=== PATIENT | female | born 1935 | race Caucasian/White ===

== ENCOUNTER → 2018-02-10 13:37 | Outpatient (CLI) | payer MEDICARE, OTHER, SELFPAY ==
--- NOTE | 2018-02-10 13:39 | CT_ITS ---
STUDY: CTA NECK WITH CONTRAST REASON FOR EXAM: Female, 83 years old. Carotid stenosis and occlusion. Brain aneurysm. History of hypertension and. RADIATION DOSAGE (If Supplied By Facility): CTDIvol = ( 28.19 ) mGy, DLP = ( 1426.75 ) mGycm TECHNIQUE: CT angiography with multi-detector data acquisition was performed from the aortic arch to the skull base following intravenous administration of 100mL ml of Isovue 370 contrast. MIP images were reconstructed from the axial data set. Post-processing of the angiographic images was performed, with multiplanar reformation and 3D reconstruction. Individualized dose optimization techniques were used for this CT. COMPARISON: None. FINDINGS: AORTIC ARCH: There is atherosclerotic calcific plaque formation of the aortic arch and great vessels arising from the aortic arch, without a hemodynamically significant stenosis. There is a normal origin of the brachiocephalic, left common carotid, and left subclavian arteries. RIGHT CAROTID ARTERIES: There is mild tortuosity of the proximal right common carotid artery. There is focal calcification in its midportion without stenosis. Marked calcifications at the carotid bifurcation extending upward into the carotid bulb. There is between 50 and 70% stenosis. There is greater than 70% stenosis of the origin of the right internal carotid artery. There is tortuosity cervical portion of the ICA without aneurysm or stricture. Normal origin of the right external carotid artery (ECA). LEFT CAROTID ARTERIES: There is tortuosity of the proximal left common carotid artery. There is scattered calcific plaque in its mid and distal portion without stenosis. There are calcifications at the carotid bifurcation extending into the carotid bulb with greater than 70% stenosis of the proximal bulb. There is approximate 50% stenosis of the distal bulb. Normal origin of the left internal carotid (ICA) artery without a hemodynamically significant stenosis. There is tortuosity of the cervical portion of the ICA without stricture or aneurysm. Normal origin of the left external carotid artery (ECA). VERTEBRAL ARTERIES: Normal bilateral vertebral arteries. CT/CTA Neck W/WO Contrast IMPRESSION: 1. Greater than 70% stenosis of the left carotid bulb. 2. 50-69% stenosis of the right carotid bulb. 3. Greater than 70% stenosis of the origin of the right ICA. 4. Normal vertebral arteries. Electronically Signed: Trey Maxwell DO at 16:44 EDT Tel [phone], Service support ,
--- NOTE | 2018-02-10 13:58 | CT_ITS ---
STUDY: CTA OF THE BRAIN REASON FOR EXAM: Female, 83 years old. Carotid stenosis and occlusion. Known brain aneurysm. History of hypertension and diabetes. RADIATION DOSAGE (If Supplied By Facility): CTDIvol = ( 28.19 ) mGy, DLP = ( 1426.75 ) mGycm TECHNIQUE: CT angiography was performed with a multi-detector CT scanner. Data acquisition was obtained from the skull base through the vertex following intravenous administration of 100 ml of Isovue-370.. MIP images were reconstructed from the axial data set. Post-processing of the angiographic images was performed, with multiplanar reformation and 3D reconstruction. Individualized dose optimization techniques were used for this CT. COMPARISON: MRA of the brain, March 12, 2012. This measures 3 x 2 x 2 mm. FINDINGS: Normal bilateral petrous carotid arteries. There is calcified plaque formation of the right cavernous carotid artery, with a mild stenosis (less than 50%). There is calcified plaque formation of the left cavernous carotid artery, with a mild stenosis (less than 50%). There is a small focal irregularity about the distal right cavernous carotid which would correlate with small aneurysm described at the origin of the right ophthalmic artery on the prior MRA. Normal right A1 segments of the anterior cerebral artery. Normal left A1 segments of the anterior cerebral artery. Normal intact anterior communicating artery (ACOM). Normal bilateral A2 segments of the anterior cerebral arteries. Normal right M1 and M2 segments of the middle cerebral arteries, with a normal M1 bifurcation. Normal left M1 and M2 segments of the middle cerebral arteries, with a normal M1 bifurcation. There is non-visualization of the right posterior communicating artery (PCOM). There is non-visualization of the left posterior communicating artery (PCOM). Normal bilateral vertebral arteries. Normal basilar artery with a normal basilar bifurcation. The visualized bilateral superior cerebellar (SCA) arteries are normal. Normal bilateral P1, P2 and visualized P3 segments of the posterior cerebral arteries. There is no demonstrated aneurysm of the [place]. There is no demonstrated abnormality of the visualized brain. CT/CTA Head W/WO Contrast IMPRESSION: 1. 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 2. Otherwise normal [place]. The posterior communicating arteries are not visualized which is not unusual in a complete [place]. Electronically Signed: Trey Maxwell DO at 16:50 EDT Tel [phone], Service support ,
== END ==
PROVIDERS: Family Provider Internal Medicine; PCP Internal Medicine; Visit Provider Internal Medicine
DX: I65.29 Occlusion and stenosis of unspecified carotid artery (principal)
CPT/HCPCS: 70496; 70498; Q9967

== ENCOUNTER 2018-04-22 14:15 | Inpatient (IN) | payer MEDICARE, OTHER, SELFPAY ==
[2018-04-22] VITALS (7 sets, daily range): BP systolic 160–176; BP diastolic 59–73; PULSE 65–81; RESP 16–26; TEMP 36.6–36.8; O2SAT 94–95; BMI 29.5; BMI 30.7; BMI 30.8
[2018-04-22 16:29] LABS: Absolute Lymphocyte Count 2.08 X10^3/ul (0.83-4.51); Absolute Neutrophil Count 7.7 X10^3/uL (2.0-7.7); Basophil# 0.03 X10^3/uL; Basophil% 0.3 % (0-1); Eosinophil# 0.48 X10^3/uL; Eosinophils% 4.2 % (0-5); Hematocrit 42.1 % (37-47); Hemoglobin 12.9 g/dl (12.0-15.0); Lymphocyte # 2.08 X10^3/ul (4.0); Lymphocyte % 18.3 % (19-41); Mean Corp Hgb Conc 30.6 g/gl (32-36); Mean Corpuscular Hgb 29.5 pg (27.0-32.0); Mean Corpuscular Volume 96.1 fL (81-99); Mean Platelet Vol. 10.5 fl (6.2-12.0); Monocyte# 1.03 X10^3/uL; Monocyte% 9.1 % (0-10); Neutrophil # 7.71 X10^3/uL (2.7-7.7); Neutrophil % 67.9 % (47-70); Platelet Count 244 K/mm3 (150-450); RBC Distribution Width CV 14.4 % (11.6-14.6); RBC Distribution Width SD 50.4 fl (35.1-43.9); Red Blood Count 4.38 M/mm3 (4.2-5.4); White Blood Count 11.4 K/mm3 (4.4-11.0)
[2018-04-22 16:35] LABS: POSITIVE COUNT NO; POSITIVE DIFFERENTIAL NO; POSITIVE MORPHOLOGY NO
--- NOTE | 2018-04-22 16:41 | EKG12_ITS ---
Test Reason : WEAKNESS Blood Pressure : / mmHG Vent. Rate : 069 BPM Atrial Rate : 069 BPM P-R Int : 154 ms QRS Dur : 074 ms QT Int : 390 ms P-R-T Axes : 041 050 043 degrees QTc Int : 417 ms Normal sinus rhythm Normal ECG Confirmed by ANTOINETTE GARCIA, SONIA ([id number]), editorial manager HORTENCIA DIOR ([id number] on 04/25/2018 8:40:00 AM Referred By: JODEE Confirmed By:SONIA CURRY MD
[2018-04-22 16:43] LABS: Anion Gap 7 (5-15); BUN 17 mg/dL (7-18); BUN/Creat Ratio 19.1 RATIO (10-20); Calcium,Total 9.7 mg/dL (8.5-10.1); Chloride 105 mmol/L (98-107); Creatinine, Serum 0.89 mg/dL (0.55-1.02); EST Glomerular Filtration Rate 64 mL/min (>60); Est Glom Filt Rate - Afr Amer 78 mL/min (>60); Glucose 105 mg/dL (74-106); Potassium 3.7 mmol/L (3.5-5.1); Sodium Level 144 mmol/L (136-145)
[2018-04-22 16:52] LABS: International Normalized Ratio 1.1; Prothrombin Time (Protime)PT. 14.5 SECONDS (11.7-14.9)
--- NOTE | 2018-04-22 17:01 | CM.ED ---
Social Work Note Referral from Dr. Fletcher as PCP sent pt for evaluation d/t weakness and had recommended SNF/TCU. In to pt's room to discuss discharge planning. Introduced self and role at [facility]. The pt is accompanied by her two brothers, Gregor and Mando. Pt is alert and oriented. Reports to live alone in a one story home with 5 steps to enter. DMe consists of a walker and cane. She is independent with ADLs such as dressing and bathing, but her brother Mando provides transportation primarily and she receives MOW 5 days/week once/day. Confirms that her PCP is Dr. Suazo and her preferred pharmacy is [email or web address] in [place]. She was recently in [facility] for a procedure from 04/17-04/18. Denies any other recent hospitalizations. Inquire what type of rehab the family is seeking at this point. The brother inquires about TCU and inform that for insurance to cover the pt would require a 3 midnight inpatient stay. Discuss that presently tests are ordered, but we do not have enough clinical information to make that determination. Brothers made aware that cost of SNF would be a private pay expense if pt does not require an inpatient stay. Also educate to [facility]. Pt and family would like to await further evaluation. Placed call to to see if pt would qualify for placement on this unit. According to Director, Sarahy, there are no qualifying diagnoses that would allow them to accept the pt on RU. Will discuss with family and staff. Plan: TBD pending clinical findings. Columba Shahid, ASSISTANCE COORDINATOR, TELEVISION OPERATOR
--- NOTE | 2018-04-22 17:15 | RAD_ITS ---
STUDY: X-RAY CHEST REASON FOR EXAM: Female, 83 years old. Cough TECHNIQUE: Frontal and lateral views of the chest COMPARISON: 11/07/2017 FINDINGS: The lungs are clear. There are no pleural effusions. There is no pneumothorax. The heart is normal in size. The visualized osseous structures are within normal limits. RAD/Chest PA and Lateral IMPRESSION: No acute thoracic pathology. Electronically Signed: Fidencio Warren, at 17:51 EDT Tel , Service support ,
--- NOTE | 2018-04-22 17:19 | CM.ED ---
Social Work Note Face to face with the pt's brothers as she is taken down to radiology for imaging. Explain to the pt's brothers that she does not qualify for RU. Discuss that there is still the TCU at [facility], but that this is $660/day for private pay and at this time we do not have clinical information to indicate that she will require inpatient admission. Provide with a list of facilities and their private expenses. Also reiterate that HHC could be an option and that this would be covered by Medicare at 100%. Brothers state that the pt would not be able to privately pay for placement and HHC may have to be the course of action if she does not require admission. Per Mando he believes that the pt make approximately $1800/month which is not a qualifying income for Medicaid. Will continue to follow and assist, and pending results to determine discharge plan. Columba Shahid, VERIFICATION MANAGER, MANAGER E LEARNING
--- NOTE | 2018-04-22 17:56 | CM.ED ---
Social Work Note Discussed case with physician. Anticipate that pt will be either admitted inpatient or observation depending on pending results. Observation for HHC setup as there is concern for pt to return home without any services being established prior to discharge and unable to setup HHC this late in the afternoon. SW to continue to follow and assist with discharge planning. Columba Shahid, ROTARY DRYER OPERATOR, WORKDAY SENIOR ASSOCIATE
[2018-04-22 18:09] LABS: Mucous, Urine 0 SEEN /hpf (<or=2+)
[2018-04-22 18:14] LABS: Color, Urine Yellow (Yellow); Glucose, Dipstick Normal (Normal); Ketone-Dipstick Negative (Negative); Leukocyte Esterase-Dipstick 500 /ul (Negative); Nitrite-Dipstick Positive (Negative); Occult Blood-Urine 250 /ul (Negative); Protein-Dipstick 30 mg/dl (Negative); Specific Gravity, Urine 1.015 (1.002-1.030); Urine Bilirubin Dipstick Negative (Negative); Urine Clarity Sl. Cloudy (Clear); Urine Urobilinogen Normal (Normal)
[2018-04-22 18:27] LABS: Red Blood Cells-Urine 10-25 SEEN /hpf (0-5); White Blood Cells 50-100 SEEN /hpf (0-5)
[2018-04-22 18:27] LABS: D-Dimer Quantitative (DVT/PE) 1.57 FEU/ug/m (0.27-0.49)
[2018-04-22 18:28] LABS: Bacteria 3+ /hpf (None Seen); Squamous Epithelial Cells - UA 5-10 SEEN /hpf (5-10)
--- NOTE | 2018-04-22 18:28 | NURSING ---
LAB CALLED WITH CRITICAL VALUE, D-DIMER 1.56, DR. ELLSWORTH INFORMED OF SAME, ROSALIA BERNARDO RN, INFORMED OF SAME.
--- NOTE | 2018-04-22 18:29 | CT_ITS ---
STUDY: CTA CHEST REASON FOR EXAM: Female, 83 years old. Weakness. Evaluate for pulmonary embolus. RADIATION DOSAGE (If Supplied By Facility): CTDIvol = ( 15.84 ) mGy, DLP = ( 653.50 ) mGycm TECHNIQUE: The examination was performed with the intravenous administration of 100 ml of Isovue 370 contrast material. Post-processing of the angiographic images was performed, with multiplanar reformation and 3D reconstruction. Individualized dose optimization techniques were used for this CT. COMPARISON: 12/30/2013 FINDINGS: There are acute segmental and subsegmental pulmonary emboli noted in all lobes of both lungs. There is no evidence of thoracic aortic aneurysm or dissection. The heart is normal in size. There is no pericardial effusion. There are coronary artery calcifications. There are cardiac valvular calcifications. There is subsegmental atelectasis noted in the lungs. There are no pulmonary infiltrate or pleural effusions. There is no pneumothorax. Images through the upper abdomen demonstrate no significant abnormality. There are no destructive osseous lesions. CT/CTA Chest W/WO Contrast IMPRESSION: Segmental and subsegmental pulmonary emboli noted in all lobes of both lungs. No evidence of thoracic aortic aneurysm or dissection. Subsegmental atelectasis. Otherwise, clear lungs. Coronary artery disease. N.B. : The above information has been verbally conveyed by Fidencio turcios , Covering Physician, on 04/22/2018 19:36:54 (ET). Electronically Signed: Fidencio Warren, at 19:27 EDT Tel , Service support , N.B. : The above information has been verbally conveyed by Fidencio turcios , Covering Physician, on 04/22/2018 19:36:54 (ET).
[2018-04-22 18:31] LABS: Lactic Acid 0.9 mmol/L (0.4-2.0)
[2018-04-22] MEDS: Ceftriaxone 1 GM/50 ML BAG IV (19:57)
--- NOTE | 2018-04-22 19:58 | ED.VISSUMM ---
- ER Visit Summary Date of Service: 04/22/18 Chief Complaint: Weakness History of Present Illness: The patient is a [address] Suazo. Patient reports that she had a right carotid endarterectomy by Dr. Russell at [facility] on April 17. She has a history of PE and is on Coumadin for this. They had her stop her Coumadin April 12 and then she began it again yesterday. She reports that she is not having any chest pain. She is very short of breath when she walks around. She has a cough productive yellow sputum mixed with blood. No fever or chills. She denies abdominal pain. She has had nausea without vomiting. Finally she complains of generalized weakness. Physical Examination: Vitals: Stable. Afebrile. General: Well-nourished and well-developed. Head: Normocephalic atraumatic. Neck: Supple, no lymphadenopathy. No JVD. Nontender. Incision for the right carotid endarterectomy is clean, dry, and intact. It is closed with Dermabond. There is no surrounding erythema. She is appropriate postop tenderness to palpation. Cardiovascular: Regular rate and rhythm. No murmurs. Respiratory: No respiratory distress. Clear to auscultation bilaterally. Abdominal: Soft, nontender, nondistended, normal bowel sounds. No guarding, rebound, or peritoneal signs. Back: Nontender. Extremities: Mild tenderness to palpation to her calves bilaterally. 1+ pitting edema that is symmetric. Skin: Normal color, no rash. Neurologic: Alert and oriented ?3. Cranial nerves II through XII are intact. Normal strength and sensation. Psych: Normal affect. Test Results: EKG is sinus at [address] changes. CBC is marked for white count 11.4 with 18 lymphocytes. Chem-7 is normal. INR is 1.1. Lactic acid is 0.9. UA has leukocytes, nitrites, blood, 50-100 white blood cells, 10-25 red blood cells, 5-10 epithelial cells, and 3+ bacteria. Troponin is negative. D-dimer is 1.57. CT of the chest shows segmental and subsegmental PE in all lobes of both lungs. Emergency Department Course and Treatment: Patient's urine was sent for culture. She was given a dose of Rocephin IV. She was given Lovenox subcu and Coumadin p.o. Treatment Plan: Patient was discussed with Dr. See. She will be admitted to the hospital for further evaluation and treatment. Disposition: Admitted in improved condition. Impression: 1. PE. 2. UTI. 3. 4 days status post right carotid endarterectomy. This note was generated with [employer] dictation software. It may contain incorrect words, spelling, and punctuation that were not noted in review of the chart prior to signing ED Disposition - Plan for ED Patient: Chief Complaint: Weakness Referrals: Clara Suazo DO [Primary Care Provider] -
[2018-04-22] MEDS: Enoxaparin 80 MG/0.8 ML Syringe 70 MG SC (20:01)
--- NOTE | 2018-04-22 21:52 | PCM.HP.STD ---
Problem List (1) Weakness Status: Acute (2) Shortness of breath Status: Acute History of Present Illness Date of Admission: 04/22/18 Chief Complaint: Generalized weakness, shortness of breath The patient is a 83 year old F was seen in the emergency room at [facility] with a chief complaint of severe weakness and dyspnea. Patient states she is actually had the dyspnea since around April 17 she underwent right carotid endarterectomy. Patient lives alone, she is accompanied by her family who are in the emergency room. Patient was taken off Coumadin which she had taken for many years due to a past history of blood clots, she resumed Coumadin yesterday but she did not take today's dosage. Patient states that she gets short of breath with minimal exertion and is overall weak. She denies any purulent sputum production, cough, or hemoptysis. Evaluation in the emergency room included a CT of the chest which showed multiple pulmonary emboli, labs were remarkable for a white blood cell count of 11.4, urinalysis was positive for nitrites, red blood cells were 10-25, bacteria were +3, and leukocytes were 50-100. Patient was admitted to PCU for bilateral pulmonary emboli, patient was placed on Lovenox and her Coumadin will be resumed. Daily INRs will be obtained, patient was given IV Rocephin in the emergency room for cystitis, this will be continued during her hospitalization. PT and OT will see the patient, the patient and the patient's family feels that she needs to go into an extended care facility for rehab services at the conclusion of her hospitalization this time. Past Medical History Past Medical History (Chronic Problems): Chronic Problems VTE (venous thromboembolism) (Chronic) Osteoarthritis (Chronic) Urinary incontinence in female (Chronic) HTN (hypertension) (Chronic) Bipolar disorder (Chronic) HLD (hyperlipidemia) (Chronic) DM II (diabetes mellitus, type II), controlled (Chronic) Allergies No Known Allergies Allergy (Verified 04/22/18 14:19) Home Medications: Ambulatory Orders Medication Instructions Recorded Albuterol Aerosols [Ventolin 2.5 mg INHALATION Q6HWA.RT PRN 12/30/13 Aerosols] Aspirin [Aspirin, Baby] 81 mg PO DAILY@0800 12/30/13 [place] Carbonate [Lithobid] 300 mg PO BID 12/30/13 Metoprolol Tartrate [Lopressor 50 mg PO BID 12/30/13 (beta carl)] Multivitamins,Ther W-Minerals 1 tablet PO DAILY 12/30/13 [Multivitamin With Minerals] Simvastatin [Zocor] 40 mg PO QHS 12/30/13 Venlafaxine XR [Effexor Xr] 75 mg PO DAILY 12/30/13 Venlafaxine XR [Effexor Xr] 150 mg PO DAILY 12/30/13 Warfarin [Coumadin] 4 mg PO DAILY 12/30/13 traZODone [Desyrel] 50 mg PO QHS 12/30/13 Cholecalciferol (Vitamin D3) 5,000 unit PO DAILY 04/22/18 [Vitamin D3] Mirtazapine [Mirtazapine] 30 mg PO QHS 04/22/18 Oxycodone HCl/Acetaminophen 1 tab PO Q6H PRN 04/22/18 [Percocet 5-325] Surgical History: hysterectomy - With bilateral oophorectomy at 38 years of age due to endometriosis, - - Right carotid endarterectomy Psychiatric History: Bipolar HEAVY EQUIPMENT OPERATOR/PAVER History: endometriosis Lives: Alone Smoking Status: Never smoker Tobacco Use: Non-smoker Alcohol: None Drugs: None - *Family History Maternal History Items: Heart Disease Paternal History Items: COPD, Heart Disease Review of Systems Constitutional: Reports: Weakness, Fatigue. Denies: Anorexia, Chills, Fever, Night Sweats Eyes: Denies: Blurred vision, Cataracts, Conjunctivae Inflammation, Double vision, Drainage HEENT: Denies: Difficulty Hearing, Difficulty Swallowing, Dysphasia, Ear Pain, Eye Pain, Head Aches, Hearing Changes, Nasal bleeding, Nasal Congestion Cardiovascular: Denies: Chest Pain, Claudication, Chest Pressure, Chest Tightness, Edema, Orthopnea, Palpitations Respiratory: Reports: Shortness of Breath, Shortness of breath at rest, Shortness of breath upon exertion. Denies: Cough, Hemoptysis, Sputum production, Wheezing Gastrointestinal: Denies: Abdominal Pain, Constipation, Diarrhea, Hematemesis, Hematochezia, Nausea Genitourinary: Denies: Dysuria, Frequency, Hematuria, Hesitancy, Incontinence, Nocturia, Retention, Urgency Gynecological: Denies: Breast symptoms Musculoskeletal: Denies: Back Pain, Foot Pain, Hand Pain, Joint stiffness, Joint swelling, Joint Tenderness, Leg Pain Skin: Denies: Dryness, Jaundice, Pruritis, Rash Neurological: Denies: Blurred vision, Double vision, Change in Speech, Focal weakness, Headaches, Incoordination, Numbness Psychiatric: Reports: Depression VTE Information - Inpt Only VTE Present on Admission: No VTE Mechan Device Prophylaxis: None VTE Pharm Prophylaxis ordered?: No Reason prophylaxis not ordered:: Medical Contraindication - Patient is undergoing full anticoagulation Patient Problems: Active and Suspected Problems Weakness (Acute) Shortness of breath (Acute) - Physical Exam General: Alert, Oriented x3, Cooperative, No apparent distress, Well developed, Well nourished HEENT: Atraumatic, PERRLA, EOMI, Normocephalic Oral: Moist Mucosa Neck: Supple, No JVD, Negative Carotid Bruits, No Nuchal Rigidity, Trachea Midline, Thyroid Normal Size and Texture, - - There is a healing surgical scar on the patient's right lateral neck area Lungs: Clear to auscultation, Normal air movement, No rhonchi, No wheeze, No rales Cardiovascular: Regular rate, Regular Rhythm, Normal S1, Normal S2, No murmurs, PMI Normal, No rub noted, No Gallop Abdomen: Bowel Sounds Present, Soft, Non Tender, Non-Distended, No hernias noted Extremities: No clubbing, No cyanosis, No edema, Capillary Refill Less than 3 Seconds Skin: Ulcer/ Wound - There is a healing surgical wound on the patient's right lateral neck area Musculoskeletal: No Tenderness to Palpation of Joints or Extremities Neurological: Cranial nerves II-XII grossly intact, Neuro grossly intact, Sensory exam intact to light touch and pain, Coordination normal Psych/Mental Status: Appropriate, Flat Affect, Alert and oriented to time, place, person, mood and affect Vital Signs Temp Pulse Resp BP Pulse Ox 98.3 F 78 20 H 160/70 H 95 04/22/18 21:30 04/22/18 21:30 04/22/18 21:30 04/22/18 21:30 04/22/18 21:30 Oxygen Flow Rate (L/min) 2 Oxygen Delivery Method Nasal Cannula Assessment/Plan All Active Problems Weakness (Acute) Shortness of breath (Acute) Acute exacerbation of chronic obstructive pulmonary disease (Acute) Pneumonia (Acute) PUD (peptic ulcer disease) (Resolved) #1 bilateral pulmonary emboli-patient will be admitted to PCU, she will be monitored on telemetry, she will continue Coumadin and she will be placed on Lovenox until her INR becomes therapeutic. #2 generalized weakness and debility-PT and OT will see patient, patient wants to go into a long-term facility if possible for inpatient rehab services. #3 acute cystitis-patient does not have any signs or symptoms of urinary tract infection but her urinalysis appears to indicate an acute cystitis, urine culture was done, patient will be maintained on Rocephin 1 g every 24 hours #4 bipolar disorder #5 hypertension #6 hyperlipidemia #7 Chronic obstructive pulmonary disease-patient uses albuterol aerosols as needed #8 status post right carotid endarterectomy Code Visit Inpatient E&M: 60053 Init Hosp L3
--- NOTE | 2018-04-22 21:56 | HP.PCM_ITS ---
Problem List (1) Weakness Status: Acute (2) Shortness of breath Status: Acute History of Present Illness Date of Admission: 04/22/18 Chief Complaint: Generalized weakness, shortness of breath The patient is a 83 year old F was seen in the emergency room at [facility] with a chief complaint of severe weakness and dyspnea. Patient states she is actually had the dyspnea since around April 17 she underwent right carotid endarterectomy. Patient lives alone, she is accompanied by her family who are in the emergency room. Patient was taken off Coumadin which she had taken for many years due to a past history of blood clots , she resumed Coumadin yesterday but she did not take today's dosage. Patient states that she gets short of breath with minimal exertion and is overall weak. She denies any purulent sputum production, cough, or hemoptysis. Evaluation in the emergency room included a CT of the chest which showed multiple pulmonary emboli, labs were remarkable for a white blood cell count of 11.4, urinalysis was positive for nitrites, red blood cells were 10-25, bacteria were +3, and leukocytes were 50-100. Patient was admitted to PCU for bilateral pulmonary emboli, patient was placed on Lovenox and her Coumadin will be resumed. Daily INRs will be obtained, patient was given IV Rocephin in the emergency room for cystitis, this will be continued during her hospitalization. PT and OT will see the patient, the patient and the patient's family feels that she needs to go into an extended care facility for rehab services at the conclusion of her hospitalization this time. Past Medical History Past Medical History (Chronic Problems): Chronic Problems VTE (venous thromboembolism) (Chronic) Osteoarthritis (Chronic) Urinary incontinence in female (Chronic) HTN (hypertension) (Chronic) Bipolar disorder (Chronic) HLD (hyperlipidemia) (Chronic) DM II (diabetes mellitus, type II), controlled (Chronic) Allergies No Known Allergies Allergy (Verified 04/22/18 14:19) Home Medications: Ambulatory Orders Medication Instructions Recorded Albuterol Aerosols [Ventolin 2.5 mg INHALATION Q6HWA.RT PRN 12/30/13 Aerosols] Aspirin [Aspirin, Baby] 81 mg PO DAILY@0800 12/30/13 [place] Carbonate [Lithobid] 300 mg PO BID 12/30/13 Metoprolol Tartrate [Lopressor 50 mg PO BID 12/30/13 (beta carl)] Multivitamins,Ther W-Minerals 1 tablet PO DAILY 12/30/13 [Multivitamin With Minerals] Simvastatin [Zocor] 40 mg PO QHS 12/30/13 Venlafaxine XR [Effexor Xr] 75 mg PO DAILY 12/30/13 Venlafaxine XR [Effexor Xr] 150 mg PO DAILY 12/30/13 Warfarin [Coumadin] 4 mg PO DAILY 12/30/13 traZODone [Desyrel] 50 mg PO QHS 12/30/13 Cholecalciferol (Vitamin D3) 5,000 unit PO DAILY 04/22/18 [Vitamin D3] Mirtazapine [Mirtazapine] 30 mg PO QHS 04/22/18 Oxycodone HCl/Acetaminophen 1 tab PO Q6H PRN 04/22/18 [Percocet 5-325] Surgical History: hysterectomy - With bilateral oophorectomy at 38 years of age due to endometriosis, - - Right carotid endarterectomy Psychiatric History: Bipolar CLIENT RESOLUTION SPECIALIST History: endometriosis Lives: Alone Smoking Status: Never smoker Tobacco Use: Non-smoker Alcohol: None Drugs: None - *Family History Maternal History Items: Heart Disease Paternal History Items: COPD, Heart Disease Review of Systems Constitutional: Reports: Weakness, Fatigue. Denies: Anorexia, Chills, Fever, Night Sweats Eyes: Denies: Blurred vision, Cataracts, Conjunctivae Inflammation, Double vision, Drainage HEENT: Denies: Difficulty Hearing, Difficulty Swallowing, Dysphasia, Ear Pain, Eye Pain, Head Aches, Hearing Changes, Nasal bleeding, Nasal Congestion Cardiovascular: Denies: Chest Pain, Claudication, Chest Pressure, Chest Tightness, Edema, Orthopnea, Palpitations Respiratory: Reports: Shortness of Breath, Shortness of breath at rest, Shortness of breath upon exertion. Denies: Cough, Hemoptysis, Sputum production , Wheezing Gastrointestinal: Denies: Abdominal Pain, Constipation, Diarrhea, Hematemesis, Hematochezia, Nausea Genitourinary: Denies: Dysuria, Frequency, Hematuria, Hesitancy, Incontinence, Nocturia, Retention, Urgency Gynecological: Denies: Breast symptoms Musculoskeletal: Denies: Back Pain, Foot Pain, Hand Pain, Joint stiffness, Joint swelling, Joint Tenderness, Leg Pain Skin: Denies: Dryness, Jaundice, Pruritis, Rash Neurological: Denies: Blurred vision, Double vision, Change in Speech, Focal weakness, Headaches, Incoordination, Numbness Psychiatric: Reports: Depression VTE Information - Inpt Only VTE Present on Admission: No VTE Mechan Device Prophylaxis: None VTE Pharm Prophylaxis ordered?: No Reason prophylaxis not ordered:: Medical Contraindication - Patient is undergoing full anticoagulation Patient Problems: Active and Suspected Problems Weakness (Acute) Shortness of breath (Acute) - Physical Exam General: Alert, Oriented x3, Cooperative, No apparent distress, Well developed, Well nourished HEENT: Atraumatic, PERRLA, EOMI, Normocephalic Oral: Moist Mucosa Neck: Supple, No JVD, Negative Carotid Bruits, No Nuchal Rigidity, Trachea Midline, Thyroid Normal Size and Texture, - - There is a healing surgical scar on the patient's right lateral neck area Lungs: Clear to auscultation, Normal air movement, No rhonchi, No wheeze, No rales Cardiovascular: Regular rate, Regular Rhythm, Normal S1, Normal S2, No murmurs, PMI Normal, No rub noted, No Gallop Abdomen: Bowel Sounds Present, Soft, Non Tender, Non-Distended, No hernias noted Extremities: No clubbing, No cyanosis, No edema, Capillary Refill Less than 3 Seconds Skin: Ulcer/ Wound - There is a healing surgical wound on the patient's right lateral neck area Musculoskeletal: No Tenderness to Palpation of Joints or Extremities Neurological: Cranial nerves II-XII grossly intact, Neuro grossly intact, Sensory exam intact to light touch and pain, Coordination normal Psych/Mental Status: Appropriate, Flat Affect, Alert and oriented to time, place , person, mood and affect Vital Signs Temp Pulse Resp BP Pulse Ox 98.3 F 78 20 H 160/70 H 95 04/22/18 21:30 04/22/18 21:30 04/22/18 21:30 04/22/18 21:30 04/22/18 21:30 Oxygen Flow Rate (L/min) 2 Oxygen Delivery Method Nasal Cannula Assessment/Plan All Active Problems Weakness (Acute) Shortness of breath (Acute) Acute exacerbation of chronic obstructive pulmonary disease (Acute) Pneumonia (Acute) PUD (peptic ulcer disease) (Resolved) #1 bilateral pulmonary emboli-patient will be admitted to PCU, she will be monitored on telemetry, she will continue Coumadin and she will be placed on Lovenox until her INR becomes therapeutic. #2 generalized weakness and debility-PT and OT will see patient, patient wants to go into a alf facility if possible for inpatient rehab services. #3 acute cystitis-patient does not have any signs or symptoms of urinary tract infection but her urinalysis appears to indicate an acute cystitis, urine culture was done, patient will be maintained on Rocephin 1 g every 24 hours #4 bipolar disorder #5 hypertension #6 hyperlipidemia #7 Chronic obstructive pulmonary disease-patient uses albuterol aerosols as needed #8 status post right carotid endarterectomy Code Visit Inpatient E&M: 68449 Init Hosp L3
[2018-04-22] MEDS: oxyCODONE 5 MG Tablet PO (22:22)
[2018-04-22] MEDS: Metoprolol Tartrate 50 MG Tablet PO (23:00)
[2018-04-22] MEDS: Lithium Carbonate 300mg Capsule 300 MG PO (23:00)
[2018-04-22] MEDS: Atorvastatin Calcium 20 MG Tablet PO (23:00)
[2018-04-22] MEDS: Mirtazapine 30 MG Tablet PO (23:00)
[2018-04-22] MEDS: traZODone 50 MG Tablet PO (23:00)
[2018-04-23] VITALS (14 sets, daily range): BP systolic 134–152; BP diastolic 57–68; PULSE 57–80; RESP 16–18; TEMP 36.7–36.8; O2SAT 85–97
[2018-04-23 05:51] LABS: International Normalized Ratio 1.3; Prothrombin Time (Protime)PT. 16.5 SECONDS (11.7-14.9)
[2018-04-23] MEDS: Enoxaparin 80 MG/0.8 ML Syringe 70 MG SC ×2 (06:18→17:03)
--- NOTE | 2018-04-23 08:08 | CPS ---
pt placed back on O2 at 2 lpm....sat to 92%
--- NOTE | 2018-04-23 08:50 | PCM.PROGNOTE ---
Subjective: Chief complaint: Follow-up after admission for acute segmental and subsegmental bilateral multilobar pulmonary emboli and acute cystitis. Patient seen and examined. No acute events overnight. She states that her breathing is getting better. She complains of right neck pain at the surgical site of the right carotid endarterectomy. Denied chest pain or palpitation. Her vital signs are stable, afebrile. - Physical Exam General: Alert, Oriented x3, Cooperative, No apparent distress HEENT: Atraumatic, PERRLA, EOMI Oral: Moist Mucosa, No Gingival or Mucosal Lesions/ Ulcerations Neck: Supple, No JVD, Negative Carotid Bruits, Trachea Midline, Thyroid Normal Size and Texture Lungs: Clear to auscultation, No rhonchi, No wheeze, No rales, Diminished Cardiovascular: Regular rate, Regular Rhythm, Normal S1, Normal S2, PMI Normal Abdomen: Bowel Sounds Present, Soft, Non Tender, Non-Distended, No Hepato-splenomegaly, Obese Extremities: No clubbing, No cyanosis, No edema Skin: No rashes, No breakdown Lymphatic: No Cervical, Supraclavicular, or Inguinal Adenopathy Neurological: Cranial nerves II-XII grossly intact, Motor Exam 5/5 strength throughout Psych/Mental Status: Normal Affect, Appropriate, Alert and oriented to time, place, person, mood and affect Vital Signs Temp Pulse Resp BP Pulse Ox 98.2 F 63 18 152/64 H 85 04/23/18 03:30 04/23/18 06:55 04/23/18 03:30 04/23/18 03:30 04/23/18 07:45 Oxygen Flow Rate (L/min) 2 Oxygen Delivery Method Nasal Cannula Weight: 157 lb 10.088 oz Body Mass Index (BMI) 30.7 Intake and Output for Last 24 Hours 04/21/18 04/22/18 04/23/18 23:59 23:59 23:59 Intake Total 60 / 60 Output Total 400 / 400 Balance -340 / -340 Laboratory Tests Past 24 Hrs 04/23/18 05:28 PT 16.5 H INR 1.3 Clinical Impression(s) from Imaging Studies Chest CTA 04/22/18 18:29 IMPRESSION: Segmental and subsegmental pulmonary emboli noted in all lobes of both lungs. No evidence of thoracic aortic aneurysm or dissection. Subsegmental atelectasis. Otherwise, clear lungs. Coronary artery disease. N.B. : The above information has been verbally conveyed by Fidencio Warren to , Covering Physician, on 04/22/2018 19:36:54 (ET). Electronically Signed: Fidencio Robertssandra, at 19:27 EDT Tel , Service support , N.B. : The above information has been verbally conveyed by Fidencio turcios , Covering Physician, on 04/22/2018 19:36:54 (ET). Medical Necessity - Tobacco Use Smoking Status: Never smoker Tobacco Use: Non-smoker Assessment/Plan All Active Problems PUD (peptic ulcer disease) (Resolved) This is an 83 years old female patient presented to the emergency room because of weakness and shortness of breath, found to have acute bilateral segmental and subsegmental PEs as well as acute cystitis. #1 acute segmental and subsegmental bilateral multilobar pulmonary emboli: In context of history of recurrent PEs, has been on Coumadin for a long time that was held for right carotid endarterectomy that was performed on April 17, 2018. Her INR is subtherapeutic. CTA chest reviewed. His EKG revealed normal sinus rhythm, no acute ischemic changes and no cardiac arrhythmias. Troponin is negative. Vertebral looks unremarkable. She is back on Coumadin and started on therapeutic Lovenox twice daily for bridging. Plan: Incentive spirometer, chest physiotherapy, continue Lovenox and Coumadin, repeat INR tomorrow morning, repeat CBC and BMP tomorrow morning. #2 acute cystitis: Started on IV Rocephin. She is afebrile. Urine culture sent. #3 status post recent right carotid endarterectomy: This was performed on April 21, 2018. Surgical scar is clean and dry. #4 hypertension: Blood pressure stable, continue metoprolol. #5 hyperlipidemia: Continue statins. #6 history of recurrent PEs: Patient has been on Coumadin for a long time. At this time, she is on Coumadin and therapeutic Lovenox for bridging. Plan as above. #7 bipolar disorder: Continue lithium and Effexor as well as trazodone. #8 DVT prophylaxis: She is on therapeutic Lovenox twice daily and Coumadin, INR subtherapeutic. This note was generated with [employer] dictation software. It may contain incorrect words, spelling, and punctuation that were not noted in checking the note before signing. Code Visit Inpatient E&M: 16001 Subs Hosp L2
[2018-04-23] MEDS: Venlafaxine XR 75 MG Capsule PO (09:33)
[2018-04-23] MEDS: Venlafaxine XR 150 MG Capsule PO (09:33)
[2018-04-23] MEDS: Metoprolol Tartrate 50 MG Tablet PO ×2 (09:33→21:08)
[2018-04-23] MEDS: Multivitamins,Ther W-Minerals Tablet 1 TABLET PO (09:34)
[2018-04-23] MEDS: Aspirin 81 MG TAB.CHEW PO (09:34)
[2018-04-23] MEDS: Lithium Carbonate 300mg Capsule 300 MG PO ×2 (09:34→21:08)
--- NOTE | 2018-04-23 10:31 | CM.ED ---
Social Work Note Pt admitted yesterday evening and family was seeking placement on TCU. Left vm with referral line ([phone]) and requesting placement on TCU. Left vm with assigned SW, Coleen Clinton, on PCU. SW to continue to follow and assist with discharge planning. Plan: TCU pending acceptance. Columba Shahid, OIL FILTERS INSPECTOR, OPTICAL MODEL MAKER AND TESTER
[2018-04-23] MEDS: Ceftriaxone 1 GM/50 ML BAG IV (10:34)
[2018-04-23] MEDS: oxyCODONE 5 MG Tablet PO ×3 (10:36→21:08)
--- NOTE | 2018-04-23 11:18 | CASEMGMT ---
TIFFANIE spoke with Sarahy this am regarding patient and she said at this time there are no beds. She said she will know more by end of the week. Patient is on the TCU list. SW will talk with patient and family about a 2nd choice. Brenda GIRALDO MSW
--- NOTE | 2018-04-23 11:28 | CASEMGMT ---
SW spoke with patient about a second choice as there may not be a bed in TCU. She was not sure and asked that SW talk with her brothers. TIFFANIE called her brother Mando and left him a voice mail requesting a return call. Brenda GIRALDO MSW
--- NOTE | 2018-04-23 13:14 | CM.ED ---
Addendum entered by Columba Shahid 04/23/18 13:33: Social Work Note In to pt's room as pt's brother, Mando, is present. Introduced self and role. Pt and Mando made aware that pt is on the list for TCU, but at this time they do not anticipate having a bed available. Inform that she will remain on the list in the event that a bed does become available, but that we will need to have a second option for placement purposes. Upon further discussion of SNFs in [place] and [facility], they would like a referral to be made to [facility] at [place]. Both state that they want to remain in the [place] area. Placed call to Evette at [facility] and unable to leave a vm. Initial referral faxed. Third choice would be [facility] if both primary choices are unable to accept. SW to continue to follow and assist with discharge planning. Columba Shahid, JAYLIN, PRODUCTION SUPPORT DEVELOPER Original Note: Social Work Note Pt requested that her brother be contacted regarding a second option for SNF placement in the event that TCU does not have a bed become available by the discharge date. Placed call to Mando and left a vm requesting a return phone call. SW to continue to follow and assist with discharge planning. Plan: SNF pending acceptance. Columba Shahid, JAYLIN, PRODUCTION SUPPORT DEVELOPER
--- NOTE | 2018-04-23 15:58 | CASEMGMT ---
TIFFANIE spoke with Evette from [facility] and they can accept patient. SW will notify patient. Plan: TCU if a bed opens up and if not [facility] Brenda MOSQUEDA
[2018-04-23] MEDS: Magnesium Hydroxide 30 ML UDC PO (17:03)
[2018-04-23] MEDS: traZODone 50 MG Tablet PO (21:08)
[2018-04-23] MEDS: Atorvastatin Calcium 20 MG Tablet PO (21:08)
[2018-04-23] MEDS: Mirtazapine 30 MG Tablet PO (21:08)
[2018-04-24] VITALS (13 sets, daily range): BP systolic 126–164; BP diastolic 61–83; PULSE 59–76; RESP 16–20; TEMP 36.3–37; O2SAT 92–96
[2018-04-24] MEDS: oxyCODONE 5 MG Tablet PO ×2 (03:30→20:42)
[2018-04-24] MEDS: Enoxaparin 80 MG/0.8 ML Syringe 70 MG SC ×2 (06:07→17:01)
[2018-04-24 06:38] LABS: Absolute Lymphocyte Count 1.41 X10^3/ul (0.83-4.51); Absolute Neutrophil Count 4.5 X10^3/uL (2.0-7.7); Basophil# 0.02 X10^3/uL; Basophil% 0.3 % (0-1); Eosinophil# 0.33 X10^3/uL; Eosinophils% 4.6 % (0-5); Hematocrit 36.5 % (37-47); Hemoglobin 11.1 g/dl (12.0-15.0); Lymphocyte # 1.41 X10^3/ul (4.0); Lymphocyte % 19.6 % (19-41); Mean Corp Hgb Conc 30.4 g/gl (32-36); Mean Corpuscular Hgb 29.8 pg (27.0-32.0); Mean Corpuscular Volume 98.1 fL (81-99); Mean Platelet Vol. 10.5 fl (6.2-12.0); Monocyte# 0.89 X10^3/uL; Monocyte% 12.4 % (0-10); Neutrophil # 4.54 X10^3/uL (2.7-7.7); Platelet Count 191 K/mm3 (150-450); RBC Distribution Width CV 14.6 % (11.6-14.6); RBC Distribution Width SD 51.7 fl (35.1-43.9); Red Blood Count 3.72 M/mm3 (4.2-5.4); White Blood Count 7.2 K/mm3 (4.4-11.0)
[2018-04-24 06:44] LABS: POSITIVE COUNT NO; POSITIVE DIFFERENTIAL NO; POSITIVE MORPHOLOGY NO
[2018-04-24 06:45] LABS: International Normalized Ratio 1.5; Prothrombin Time (Protime)PT. 17.9 SECONDS (11.7-14.9)
[2018-04-24 06:59] LABS: Anion Gap 5 (5-15); BUN 11 mg/dL (7-18); BUN/Creat Ratio 13.9 RATIO (10-20); Calcium,Total 9.2 mg/dL (8.5-10.1); Chloride 106 mmol/L (98-107); Creatinine, Serum 0.79 mg/dL (0.55-1.02); EST Glomerular Filtration Rate 73 mL/min (>60); Est Glom Filt Rate - Afr Amer 89 mL/min (>60); Estimated Creatinine Clearance 30.62 ml/min; Glucose 109 mg/dL (74-106); Potassium 4.4 mmol/L (3.5-5.1); Sodium Level 143 mmol/L (136-145)
--- NOTE | 2018-04-24 08:09 | PN_ITS ---
Subjective: Chief complaint: Follow-up after admission for acute subsegmental and segmental bilateral multilobar PEs and acute cystitis. Patient seen and examined. No acute events overnight. Again, she complains of pain at the surgical site on the right side of the neck. No other complaints. Vital signs are stable. - Physical Exam General: Alert, Oriented x3, Cooperative, No apparent distress HEENT: Atraumatic, PERRLA, EOMI Oral: Moist Mucosa, No Gingival or Mucosal Lesions/ Ulcerations Neck: Supple, No JVD, Negative Carotid Bruits, Trachea Midline, Thyroid Normal Size and Texture Lungs: Clear to auscultation, No rhonchi, No wheeze, No rales, Diminished Cardiovascular: Regular rate, Regular Rhythm, Normal S1, Normal S2, No murmurs Abdomen: Bowel Sounds Present, Soft, Non Tender, Non-Distended, No Hepato- splenomegaly Extremities: No clubbing, No cyanosis, No edema Skin: No rashes, No breakdown, Incision - Surgical incision on the right side of it is clean and dry, no erythema or drainage. Lymphatic: No Cervical, Supraclavicular, or Inguinal Adenopathy Neurological: Cranial nerves II-XII grossly intact, Neuro grossly intact Psych/Mental Status: Normal Affect, Appropriate, Alert and oriented to time, place, person, mood and affect Vital Signs Temp Pulse Resp BP Pulse Ox 97.7 F L 63 16 141/66 H 96 04/24/18 03:27 04/24/18 06:57 04/24/18 03:27 04/24/18 03:27 04/24/18 03:27 Oxygen Flow Rate (L/min) 2 Oxygen Delivery Method Nasal Cannula Weight: 157 lb 10.088 oz Body Mass Index (BMI) 30.7 Intake and Output for Last 24 Hours 04/22/18 04/23/18 04/24/18 23:59 23:59 23:59 Intake Total 843.1 / 843.1 Output Total 1000 / 1000 100 / 100 Balance -156.9 / -156.9 -100 / -100 Laboratory Tests Past 24 Hrs 04/24/18 04/24/18 04/24/18 06:05 06:05 06:05 WBC 7.2 RBC 3.72 L Hgb 11.1 L Hct 36.5 L MCV 98.1 MCH 29.8 MCHC 30.4 L RDW 14.6 RDW Differential 51.7 H Plt Count 191 MPV 10.5 Immature Gran % (Auto) 0.100 Neut % (Auto) 63.0 Lymph % (Auto) 19.6 Crowley % (Auto) 12.4 H Eos % (Auto) 4.6 Baso % (Auto) 0.3 Absolute Neuts (auto) 4.5 Absolute Lymphs (auto) 1.41 Total Counted Not Reportable PT 17.9 H INR 1.5 Sodium 143 Potassium 4.4 Chloride 106 Carbon Dioxide 32.0 Anion Gap 5 BUN 11 Creatinine 0.79 Estim Creat Clear Calc 30.62 Est GFR (MDRD) Af Amer 89 Est GFR (MDRD) Non-Af 73 BUN/Creatinine Ratio 13.9 Glucose 109 H Calcium 9.2 Medical Necessity - Tobacco Use Smoking Status: Never smoker Tobacco Use: Non-smoker Assessment/Plan All Active Problems PUD (peptic ulcer disease) (Resolved) This is an 83 years old female patient presented to the emergency room because of weakness and shortness of breath, found to have acute bilateral segmental and subsegmental PEs as well as acute cystitis. #1 acute segmental and subsegmental bilateral multilobar pulmonary emboli: She is on therapeutic Lovenox twice daily as well as Coumadin, INR is 1.5. Respiratory status is stable. She has a history of recurrent PEs, has been on Coumadin for a long time that was held for right carotid endarterectomy that was performed on April 17, 2018. Plan: Potassium treatment, repeat INR tomorrow morning, wean off oxygen, ambulate. #2 acute cystitis: She is on IV Rocephin. She is afebrile, leukocytosis resolved. Urine culture revealed gram-negative rods, final is pending #3 status post recent right carotid endarterectomy: This was performed on April 21, 2018. Surgical scar is clean and dry. #4 hypertension: Blood pressure stable, continue metoprolol. #5 hyperlipidemia: Continue statins. #6 history of recurrent PEs: Patient has been on Coumadin for a long time. At this time, she is on Coumadin and therapeutic Lovenox for bridging. Plan as above. #7 bipolar disorder: Continue lithium and Effexor as well as trazodone. #8 DVT prophylaxis: She is on therapeutic Lovenox twice daily and Coumadin, INR subtherapeutic. This note was generated with [employer] dictation software. It may contain incorrect words, spelling, and punctuation that were not noted in checking the note before signing. Code Visit Inpatient E&M: 90287 Subs Hosp L2
[2018-04-24] MEDS: Lithium Carbonate 300mg Capsule 300 MG PO ×2 (08:45→21:00)
[2018-04-24] MEDS: Metoprolol Tartrate 50 MG Tablet PO ×2 (08:45→21:00)
[2018-04-24] MEDS: Venlafaxine XR 150 MG Capsule PO (08:45)
[2018-04-24] MEDS: Venlafaxine XR 75 MG Capsule PO (08:45)
[2018-04-24] MEDS: Multivitamins,Ther W-Minerals Tablet 1 TABLET PO (08:45)
[2018-04-24] MEDS: Aspirin 81 MG TAB.CHEW PO (08:45)
[2018-04-24] MEDS: Ceftriaxone 1 GM/50 ML BAG IV (09:13)
[2018-04-24] MEDS: 0.9% NaCl Peripheral Flush Adult/Peds IV (09:13)
--- NOTE | 2018-04-24 14:51 | CASEMGMT ---
Social Work Received message from Sarahy in TCU and there is now a bed available for pt. SW met with pt and and informed that pt could go to either [facility] or TCU. Pt choosing TCU at this time. Phone call to Sarahy in [facility] and Evette at [facility] and informed of pt choice. SW will continue to follow for SNF placement. Plan: TCU, pt can be admitted tomorrow if medically ready SAMEERA Koenig
[2018-04-24] MEDS: Mirtazapine 30 MG Tablet PO (21:00)
[2018-04-24] MEDS: traZODone 50 MG Tablet PO (21:00)
[2018-04-24] MEDS: Atorvastatin Calcium 20 MG Tablet PO (21:00)
[2018-04-25] VITALS (10 sets, daily range): BP systolic 121–149; BP diastolic 63–89; PULSE 56–69; RESP 16–20; TEMP 36.8–36.9; O2SAT 90–97
[2018-04-25] MEDS: Enoxaparin 80 MG/0.8 ML Syringe 70 MG SC (06:13)
[2018-04-25 06:22] LABS: International Normalized Ratio 1.5; Prothrombin Time (Protime)PT. 18.2 SECONDS (11.7-14.9)
--- NOTE | 2018-04-25 08:15 | PCM.TXEXTCAR ---
- Diet 04/22/18 20:18 Diet: Cardiac/Low Cholesterol Food consistency:: Regular Liquid Consistency:: Regular/Thin Type of Dietary Supplement:: NONE - Routine Orders/Code Status Routine Lab Work: INR - Wound(s) R Neck Wound Type: Surgical Incision - Suggestions for Active Care Change Position every (hours): 3 Hours to sit in a chair: 2 Times a day to sit in chair: 3 - Therapies Weight Bearing: Weight bearing as tolerated Physical Therapy: Eval and Treat Occupational Therapy: Eval and Treat - Allergies/Procedures Done in Hospital Allergies/Adverse Reactions: Allergies No Known Allergies Allergy (Verified 04/22/18 14:19) - Type of Care/Length of Stay Estimated LOS: Convalescent Care Less Than 30 days Type of Care Needed: Skilled Rehab Potential: Good Prognosis: Good - Additional Orders/Day of Discharge Additional Orders: 1. do daily pro time and INR for the next 3 days. #2 continue Coumadin and Lovenox twice daily until INR above 2. #3 discontinue Lovenox injections once INR is 2 or above. Goal INR is between 2 and 3. H&P will serve as current which was dated: 04/22/18 Day of Discharge: 04/25/18 - Follow Up Care Primary Care Physician: Clara Suazo DO [Primary Care Provider] - Please follow up with your Primary Care Physician in: 1 week.
--- NOTE | 2018-04-25 09:54 | CASEMGMT ---
Patient is ready for d/c to TCU. SW let patient know and she said her brother is on his way in to the hospital. Plan: d/c to [facility] TCU under skilled level of care. Brenda MOSQUEDA
[2018-04-25] MEDS: Metoprolol Tartrate 50 MG Tablet PO (09:58)
[2018-04-25] MEDS: Lithium Carbonate 300mg Capsule 300 MG PO (09:59)
[2018-04-25] MEDS: Venlafaxine XR 75 MG Capsule PO (09:59)
[2018-04-25] MEDS: Venlafaxine XR 150 MG Capsule PO (09:59)
[2018-04-25] MEDS: Aspirin 81 MG TAB.CHEW PO (09:59)
[2018-04-25] MEDS: Multivitamins,Ther W-Minerals Tablet 1 TABLET PO (09:59)
[2018-04-25] MEDS: Ceftriaxone 1 GM/50 ML BAG IV (10:30)
[2018-04-25] MEDS: 0.9% NaCl Peripheral Flush Adult/Peds IV (10:31)
[2018-04-25] MEDS: Magnesium Hydroxide 30 ML UDC PO (10:31)
--- NOTE | 2018-04-25 12:09 | PCM.DC.SUM ---
Discharge Date and Diagnosis Date of Admission: 04/22/18 Date of Discharge: 04/25/18 - Primary Discharge Diagnosis #1 acute segmental and subsegmental bilateral multilobar pulmonary emboli. #2 E. coli acute cystitis. #3 status post recent right carotid endarterectomy. - Secondary Discharge Diagnosis Chronic Problems VTE (venous thromboembolism) (Chronic) Osteoarthritis (Chronic) Urinary incontinence in female (Chronic) HTN (hypertension) (Chronic) Bipolar disorder (Chronic) HLD (hyperlipidemia) (Chronic) DM II (diabetes mellitus, type II), controlled (Chronic) Hospital Course and Treatment Imaging Results: Clinical Impression(s) from Imaging Studies Chest X-Ray 04/22/18 17:15 IMPRESSION: No acute thoracic pathology. Electronically Signed: Fidencio Warren, at 17:51 EDT Tel , Service support , Chest CTA 04/22/18 18:29 IMPRESSION: Segmental and subsegmental pulmonary emboli noted in all lobes of both lungs. No evidence of thoracic aortic aneurysm or dissection. Subsegmental atelectasis. Otherwise, clear lungs. Coronary artery disease. N.B. : The above information has been verbally conveyed by Fidencio turcios , Covering Physician, on 04/22/2018 19:36:54 (ET). Electronically Signed: Fidencio Warren, at 19:27 EDT Tel , Service support , N.B. : The above information has been verbally conveyed by Fidencio turcios , Covering Physician, on 04/22/2018 19:36:54 (ET). Operations: None Procedures: EKG Summary of Care Provided: Patient seen and examined on the day of discharge and appeared to be stable to be discharged to [facility]. She has any complaints except mild pain and discomfort at the right side of her neck at the surgical site. Her vital signs are stable. - Physical Exam General: Alert, Oriented x3, Cooperative, No apparent distress. HEENT: Atraumatic, PERRLA, EOMI. Neck: Supple, No JVD, Negative Carotid Bruits, Trachea Midline, Thyroid Normal. Surgical scar of the right endarterectomy is clean and dry. Lungs: Diminished breath sounds bilateral, otherwise clear, No rhonchi, No wheeze, No rales. Cardiovascular: Regular rate, Regular Rhythm, Normal S1, Normal S2, PMI Normal. Abdomen: Bowel Sounds Present, Soft, Non Tender, Non-Distended, No Hepato-splenomegaly. Extremities: No clubbing, No cyanosis, No edema Skin: No rashes, No breakdown Neurological: Neuro grossly intact Vital Signs are stable. Hospital course: This is an 83 years old female patient presented to the emergency room because of weakness and shortness of breath and she was diagnosed with acute bilateral segmental and subsegmental pulmonary emboli as well as acute cystitis. This patient had a history of right carotid endarterectomy on April 17, 2018 for which her Coumadin was held preoperatively. 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 CTA chest done on admission revealed acute bilateral segmental and subsegmental multilobar pulmonary emboli. On admission, her INR was up to lytic at 1.1. She was treated with therapeutic Lovenox twice daily as well as Coumadin and her INR was monitored daily. He was found to have acute cystitis was treated with IV Rocephin. Her urine culture revealed E. coli that was sensitive to ciprofloxacin and Levaquin. Her respiratory status was stable throughout admission and she did not require oxygen. Her routine blood work was unremarkable. EKG revealed no evidence of acute ischemic changes. Troponin was negative. Lactic acid was normal. She was continued on Coumadin and Lovenox twice daily and her INR upon discharge was 1.5. Patient discharged to [facility] facility in a stable medical condition, discharged on ciprofloxacin 500 mg p.o. twice daily for 5 days, discharged on Coumadin 4 mg p.o. daily along with therapeutic Lovenox twice daily, order given to repeat INR daily, plan to discontinue Lovenox injections once INR between 2 and 3, continued on her other chronic home medications without any changes, recommended follow-up with PCP in 1 week. Home Medications: Medications to take at Discharge Albuterol Aerosols [Ventolin Aerosols] 2.5 mg INHALATION Q6HWA.RT PRN 12/30/13 Aspirin [Aspirin, Baby] 81 mg PO DAILY@0800 12/30/[address] Carbonate [Lithobid] 300 mg PO BID 12/30/13 Metoprolol Tartrate [Lopressor (beta carl)] 50 mg PO BID 12/30/13 Multivitamins,Ther W-Minerals [Multivitamin With Minerals] 1 tablet PO DAILY 12/30/13 Simvastatin [Zocor] 40 mg PO QHS 12/30/13 Venlafaxine XR [Effexor Xr] 75 mg PO DAILY 12/30/13 Venlafaxine XR [Effexor Xr] 150 mg PO DAILY 12/30/13 Warfarin [Coumadin] 4 mg PO DAILY 12/30/13 traZODone [Desyrel] 50 mg PO QHS 12/30/13 Cholecalciferol (Vitamin D3) [Vitamin D3] 5,000 unit PO DAILY 04/22/18 Mirtazapine 30 mg PO QHS 04/22/18 Ciprofloxacin [Cipro] 500 mg PO BID #10 tab 04/25/18 Enoxaparin [Lovenox] 70 mg SC Q12@0600,1800 #6 syringe 04/25/18 Oxycodone HCl/Acetaminophen [Percocet 5-325] 1 tab PO Q6H PRN #4 tab 04/25/18 Following Prescrptions Were Given to Patient: Enoxaparin [Lovenox] 70 mg SC Q12@0600,1800 #6 syringe Ciprofloxacin [Cipro] 500 mg PO BID #10 tab Oxycodone HCl/Acetaminophen [Percocet 5-325] 1 tab PO Q6H PRN #4 tab PRN Reason: Pain Primary Care Physician: Clara Suazo DO [Primary Care Provider] - Please follow up with your Primary Care Physician in: 1 week. Disposition: [facility] Minutes spent on discharge:: 33 Patient Condition:: Stable Medical Necessity - Tobacco Use Smoking Status: Never smoker Tobacco Use: Non-smoker Meaningful Use Info Meaningful Use Diagnoses (Choose all that apply): None applicable Code Visit Inpatient E&M: 54588 Disch Hosp
--- NOTE | 2018-04-25 12:15 | DS.PCM_ITS ---
Discharge Date and Diagnosis Date of Admission: 04/22/18 Date of Discharge: 04/25/18 - Primary Discharge Diagnosis #1 acute segmental and subsegmental bilateral multilobar pulmonary emboli. #2 E. coli acute cystitis. #3 status post recent right carotid endarterectomy. - Secondary Discharge Diagnosis Chronic Problems VTE (venous thromboembolism) (Chronic) Osteoarthritis (Chronic) Urinary incontinence in female (Chronic) HTN (hypertension) (Chronic) Bipolar disorder (Chronic) HLD (hyperlipidemia) (Chronic) DM II (diabetes mellitus, type II), controlled (Chronic) Hospital Course and Treatment Imaging Results: Clinical Impression(s) from Imaging Studies Chest X-Ray 04/22/18 17:15 IMPRESSION: No acute thoracic pathology. Electronically Signed: Fidencio Warren, at 17:51 EDT Tel , Service support , Chest CTA 04/22/18 18:29 IMPRESSION: Segmental and subsegmental pulmonary emboli noted in all lobes of both lungs. No evidence of thoracic aortic aneurysm or dissection. Subsegmental atelectasis. Otherwise, clear lungs. Coronary artery disease. N.B. : The above information has been verbally conveyed by Fidencio turcios , Covering Physician, on 04/22/2018 19:36:54 (ET). Electronically Signed: Fidencio Warren, at 19:27 EDT Tel , Service support , N.B. : The above information has been verbally conveyed by Fidencio turcios , Covering Physician, on 04/22/2018 19:36:54 (ET). Operations: None Procedures: EKG Summary of Care Provided: Patient seen and examined on the day of discharge and appeared to be stable to be discharged to residential facility. She has any complaints except mild pain and discomfort at the right side of her neck at the surgical site. Her vital signs are stable. - Physical Exam General: Alert, Oriented x3, Cooperative, No apparent distress. HEENT: Atraumatic, PERRLA, EOMI. Neck: Supple, No JVD, Negative Carotid Bruits, Trachea Midline, Thyroid Normal. Surgical scar of the right endarterectomy is clean and dry. Lungs: Diminished breath sounds bilateral, otherwise clear, No rhonchi, No wheeze, No rales. Cardiovascular: Regular rate, Regular Rhythm, Normal S1, Normal S2, PMI Normal. Abdomen: Bowel Sounds Present, Soft, Non Tender, Non-Distended, No Hepato- splenomegaly. Extremities: No clubbing, No cyanosis, No edema Skin: No rashes, No breakdown Neurological: Neuro grossly intact Vital Signs are stable. Hospital course: This is an 83 years old female patient presented to the emergency room because of weakness and shortness of breath and she was diagnosed with acute bilateral segmental and subsegmental pulmonary emboli as well as acute cystitis. This patient had a history of right carotid endarterectomy on April 17, 2018 for which her Coumadin was held preoperatively. 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 CTA chest done on admission revealed acute bilateral segmental and subsegmental multilobar pulmonary emboli. On admission, her INR was up to lytic at 1.1. She was treated with therapeutic Lovenox twice daily as well as Coumadin and her INR was monitored daily. He was found to have acute cystitis was treated with IV Rocephin. Her urine culture revealed E. coli that was sensitive to ciprofloxacin and Levaquin. Her respiratory status was stable throughout admission and she did not require oxygen. Her routine blood work was unremarkable. EKG revealed no evidence of acute ischemic changes. Troponin was negative. Lactic acid was normal. She was continued on Coumadin and Lovenox twice daily and her INR upon discharge was 1.5. Patient discharged to residential facility in a stable medical condition, discharged on ciprofloxacin 500 mg p.o. twice daily for 5 days, discharged on Coumadin 4 mg p.o. daily along with therapeutic Lovenox twice daily, order given to repeat INR daily, plan to discontinue Lovenox injections once INR between 2 and 3, continued on her other chronic home medications without any changes, recommended follow-up with PCP in 1 week. Home Medications: Medications to take at Discharge Albuterol Aerosols [Ventolin Aerosols] 2.5 mg INHALATION Q6HWA.RT PRN 12/30/13 Aspirin [Aspirin, Baby] 81 mg PO DAILY@0800 12/30/13 [place] Carbonate [Lithobid] 300 mg PO BID 12/30/13 Metoprolol Tartrate [Lopressor (beta carl)] 50 mg PO BID 12/30/13 Multivitamins,Ther W-Minerals [Multivitamin With Minerals] 1 tablet PO DAILY 03/10 Simvastatin [Zocor] 40 mg PO QHS 12/30/13 Venlafaxine XR [Effexor Xr] 75 mg PO DAILY 12/30/13 Venlafaxine XR [Effexor Xr] 150 mg PO DAILY 12/30/13 Warfarin [Coumadin] 4 mg PO DAILY 12/30/13 traZODone [Desyrel] 50 mg PO QHS 12/30/13 Cholecalciferol (Vitamin D3) [Vitamin D3] 5,000 unit PO DAILY 04/22/18 Mirtazapine 30 mg PO QHS 04/22/18 Ciprofloxacin [Cipro] 500 mg PO BID #10 tab 04/25/18 Enoxaparin [Lovenox] 70 mg SC Q12@0600,1800 #6 syringe 04/25/18 Oxycodone HCl/Acetaminophen [Percocet 5-325] 1 tab PO Q6H PRN #4 tab 04/25/18 Following Prescrptions Were Given to Patient: Enoxaparin [Lovenox] 70 mg SC Q12@0600,1800 #6 syringe Ciprofloxacin [Cipro] 500 mg PO BID #10 tab Oxycodone HCl/Acetaminophen [Percocet 5-325] 1 tab PO Q6H PRN #4 tab PRN Reason: Pain Primary Care Physician: Clara Suazo DO [Primary Care Provider] - Please follow up with your Primary Care Physician in: 1 week. Disposition: Assisted facility Minutes spent on discharge:: 33 Patient Condition:: Stable Medical Necessity - Tobacco Use Smoking Status: Never smoker Tobacco Use: Non-smoker Meaningful Use Info Meaningful Use Diagnoses (Choose all that apply): None applicable Code Visit Inpatient E&M: 51341 Disch Hosp
--- NOTE | 2018-04-25 16:07 | NURSING ---
Called report to GINI Singh on TCU at this time. Bed 14.
== END 2018-04-25 16:28 | disposition skilled nursing facility (03) | DRG 176 ==
LOC: ED 16:45 → PCU 20:33
PROVIDERS: Admitting Provider Internal Medicine; Emergency Provider Emergency Medicine; Family Provider Internal Medicine; PCP Internal Medicine; Visit Provider Hospitalist
DX: I26.99 Other pulmonary embolism without acute cor pulmonale (principal); N30.00 Acute cystitis without hematuria; I10 Essential (primary) hypertension; E78.5 Hyperlipidemia, unspecified; F31.9 Bipolar disorder, unspecified; Z86.711 Personal history of pulmonary embolism; Z79.01 Long term (current) use of anticoagulants; B96.20 Unspecified Escherichia coli [E. coli] as the cause of diseases classified elsewhere; M19.90 Unspecified osteoarthritis, unspecified site; R32 Unspecified urinary incontinence; E11.9 Type 2 diabetes mellitus without complications
CPT/HCPCS: 36415; 71046; 71275; 80048; 81001; 83605; 84484; 85025; 85379; 85610; 87077; 87086; 87088; 87186; 93005; 94667; 94668; 97162; 97165; 97530; 99282; J7030; J7040; Q9967; A4216

== ENCOUNTER 2018-04-25 16:45 | Inpatient (IN) | payer MEDICARE, OTHER, SELFPAY ==
[2018-04-25 17:00] VITALS: BP 171/81; PULSE 60; RESP 18; TEMP 36.6; O2SAT 94
[2018-04-25 18:25] VITALS: BMI 29.9
[2018-04-25 18:35] VITALS: BMI 29.9
--- NOTE | 2018-04-25 19:10 | PCM.HP.STD ---
Problem List (1) Weakness Status: Acute (2) Pulmonary embolism Status: Acute (3) E. coli UTI Status: Acute (4) Carotid stenosis Status: Chronic (5) Osteoarthritis Status: Chronic (6) Bipolar disorder Status: Chronic (7) Insomnia Status: Chronic (8) Decreased appetite Status: Chronic (9) HTN (hypertension) Status: Chronic (10) HLD (hyperlipidemia) Status: Chronic (11) DM II (diabetes mellitus, type II), controlled Status: Chronic History of Present Illness Date of Admission: 04/25/18 Chief Complaint: Here for rehabilitation, strengthening, prior to discharge home with family. The patient is a 83 year old Female with below past medical history presented to [facility] Emergency Department 04/22/2018 with weakness. 04/22/2018 EKG Normal sinus rhythm, normal EKG. 04/22/2018 Chest X-ray negative. 04/22/2018 CTA chest multiple pulmonary embolism. Right carotid endarterectomy 04/17/[address] Russell. Off coumadin for surgery. Shortness of breath with ambulation. Cough productive of yellow sputum with blood. WBC 11.4, BMP normal, INR 1.1. Lactic acid 0.9. UA consistent with UTI, Troponin negative, D-dimer 1.57 Rocephin IV, subcutaneous Lovenox, coumadin given. 04/22/2018 Admit to Hospital. Lovenox, coumadin for pulmonary embolism. PT/OT for debility. 04/23/2018 UTI treated with Rocephin. Urine culture grew E. Coli. Troponin negative. Rocephin transitioned to Cipro 500MG BID for UTI. 04/25/2018 Admit to TCU for rehabilitation, strengthening, prior to discharge home with family. Past Medical History Past Medical History (Chronic Problems): Chronic Problems Carotid stenosis (Chronic) Osteoarthritis (Chronic) Bipolar disorder (Chronic) Insomnia (Chronic) Decreased appetite (Chronic) VTE (venous thromboembolism) (Chronic) Osteoarthritis (Chronic) Urinary incontinence in female (Chronic) HTN (hypertension) (Chronic) Bipolar disorder (Chronic) HLD (hyperlipidemia) (Chronic) DM II (diabetes mellitus, type II), controlled (Chronic) Allergies No Known Allergies Allergy (Verified 04/22/18 14:19) Home Medications: Ambulatory Orders Medication Instructions Recorded Albuterol Aerosols [Ventolin 2.5 mg INHALATION Q6HWA.RT PRN 12/30/13 Aerosols] Aspirin [Aspirin, Baby] 81 mg PO DAILY@0800 12/30/13 [place] Carbonate [Lithobid] 300 mg PO BID 12/30/13 Metoprolol Tartrate [Lopressor 50 mg PO BID 12/30/13 (beta carl)] Multivitamins,Ther W-Minerals 1 tablet PO DAILY 12/30/13 [Multivitamin With Minerals] Simvastatin [Zocor] 40 mg PO QHS 12/30/13 Venlafaxine XR [Effexor Xr] 75 mg PO DAILY 12/30/13 Venlafaxine XR [Effexor Xr] 150 mg PO DAILY 12/30/13 Warfarin [Coumadin] 4 mg PO DAILY 12/30/13 traZODone [Desyrel] 50 mg PO QHS 12/30/13 Cholecalciferol (Vitamin D3) 5,000 unit PO DAILY 04/22/18 [Vitamin D3] Mirtazapine 30 mg PO QHS 04/22/18 Ciprofloxacin [Cipro] 500 mg PO BID 04/25/18 Enoxaparin [Lovenox] 70 mg SC Q12@0600,1800 04/25/18 Oxycodone HCl/Acetaminophen 1 tab PO Q6H PRN #4 tab 04/25/18 [Percocet 5-325] Surgical History: hysterectomy - With bilateral oophorectomy at 38 years of age due to endometriosis, - - Right carotid endarterectomy Psychiatric History: Bipolar [employer] History: endometriosis Lives: With Family Smoking Status: Never smoker Tobacco Use: Non-smoker Alcohol: None Drugs: None - *Family History Maternal History Items: No pertinent history Paternal History Items: No pertinent history Offspring History Items: No pertinent history Sibling History Items: Diabetes Review of Systems Constitutional: Reports: Weakness. Denies: Chills, Fever, Weight Change HEENT: Denies: Head Aches, Sinus Congestion, Sinus Drainage Cardiovascular: Denies: Chest Pain, Palpitations Respiratory: Denies: Cough, Shortness of breath at rest, Sputum production Gastrointestinal: Denies: Abdominal Pain, Nausea, Vomiting Genitourinary: Denies: Dysuria Musculoskeletal: Denies: Joint Pain, Joint Tenderness Skin: Denies: Rash, Wounds Neurological: Denies: Numbness, Tingling, Focal weakness Psychiatric: Denies: Anxiety, Depression, Homicidal Ideations, Suicidal Ideations Hematologic/ Lymphatic: Denies: Easy Bruising, Easy Bleeding VTE Information - Inpt Only VTE Present on Admission: No VTE Mechan Device Prophylaxis: Knee High GAIL Hose VTE Pharm Prophylaxis ordered?: No Reason prophylaxis not ordered:: Treatment Not Indicated Patient Problems: Active and Suspected Problems Weakness (Acute) Pulmonary embolism (Acute) E. coli UTI (Acute) - Physical Exam General: Alert, Oriented x3, Cooperative HEENT: Atraumatic, PERRLA, EOMI, Normocephalic Neck: Supple, No JVD, Negative Carotid Bruits Lungs: Clear to auscultation, Normal air movement Cardiovascular: Regular rate, No murmurs Abdomen: Bowel Sounds Present, Soft, Non Tender Extremities: No edema, Capillary Refill Less than 3 Seconds Skin: No rashes, No breakdown, Incision - Right CEA clean, dry, intact. Musculoskeletal: No Tenderness to Palpation of Joints or Extremities Neurological: Cranial nerves II-XII grossly intact Psych/Mental Status: Normal Affect, Appropriate Vital Signs Temp Pulse Resp BP Pulse Ox 97.8 F 60 18 171/81 H 94 04/25/18 17:00 04/25/18 17:00 04/25/18 17:00 04/25/18 17:00 04/25/18 17:00 Oxygen Delivery Method Room Air Weight: 69.4 kg Body Mass Index (BMI) 29.9 Assessment/Plan All Active Problems Weakness (Acute) Pulmonary embolism (Acute) E. coli UTI (Acute) PUD (peptic ulcer disease) (Resolved) 83 year old female with below past medical history hospitalized for weakness secondary to pulmonary embolism, complicated by E. Coli UTI, admitted to TCU with debility, here for rehabilitation, strengthening, prior to discharge home with family. Debility - PT/OT. Pain - Tylenol 1000MG Q8H PRN mild pain, Oxycodone 5MG Q6H PRN severe pain. Bowel - Miralax 17GM daily, Senna/colace 1 tablet BID, Dulcolax 10MG PO daily PRN. Pneumonia vaccination - Administer Prevnar 13 and/or Pneumovax 23 as necessary. DVT prophylaxis - on Lovenox/coumadin bridge. Shortness of breath - Albuterol 2.5MG Q6H PRN. CV prophylaxis - Aspirin 81MG daily. Hyperlipidemia - Atorvastatin 20MG QHS. E. Coli UTI - Cipro 500MG BID thru 05/05/2018, sensitivity to Cipro confirmed. Bipolar Disorder - [place] 300MG BID. Hypertension - Metoprolol 50MG BID. Depression/insomnia/appetite decreased - Remeron 30MG QHS, consider lowering dose to 15MG, high dose Remeron has increased side effects without increased benefit. Nutrition - MVI daily. Insomnia - Trazodone 50MG QHS. Depression - Venlafaxine 225MG daily. Pulmonary Embolism - Lovenox 70MG SC Q12H bridge, warfarin 4MG daily, follow INR.
--- NOTE | 2018-04-25 19:20 | HP.PCM_ITS ---
Problem List (1) Weakness Status: Acute (2) Pulmonary embolism Status: Acute (3) E. coli UTI Status: Acute (4) Carotid stenosis Status: Chronic (5) Osteoarthritis Status: Chronic (6) Bipolar disorder Status: Chronic (7) Insomnia Status: Chronic (8) Decreased appetite Status: Chronic (9) HTN (hypertension) Status: Chronic (10) HLD (hyperlipidemia) Status: Chronic (11) DM II (diabetes mellitus, type II), controlled Status: Chronic History of Present Illness Date of Admission: 04/25/18 Chief Complaint: Here for rehabilitation, strengthening, prior to discharge home with family. The patient is a 83 year old Female with below past medical history presented to [facility] Emergency Department 04/22/2018 with weakness. 04/22/2018 EKG Normal sinus rhythm, normal EKG. 04/22/2018 Chest X-ray negative. 04/22/2018 CTA chest multiple pulmonary embolism. Right carotid endarterectomy 04/17/[address] Russell. Off coumadin for surgery. Shortness of breath with ambulation. Cough productive of yellow sputum with blood. WBC 11.4, BMP normal, INR 1.1. Lactic acid 0.9. UA consistent with UTI, Troponin negative, D-dimer 1.57 Rocephin IV, subcutaneous Lovenox, coumadin given. 04/22/2018 Admit to Hospital. Lovenox, coumadin for pulmonary embolism. PT/OT for debility. 04/23/2018 UTI treated with Rocephin. Urine culture grew E. Coli. Troponin negative. Rocephin transitioned to Cipro 500MG BID for UTI. 04/25/2018 Admit to TCU for rehabilitation, strengthening, prior to discharge home with family. Past Medical History Past Medical History (Chronic Problems): Chronic Problems Carotid stenosis (Chronic) Osteoarthritis (Chronic) Bipolar disorder (Chronic) Insomnia (Chronic) Decreased appetite (Chronic) VTE (venous thromboembolism) (Chronic) Osteoarthritis (Chronic) Urinary incontinence in female (Chronic) HTN (hypertension) (Chronic) Bipolar disorder (Chronic) HLD (hyperlipidemia) (Chronic) DM II (diabetes mellitus, type II), controlled (Chronic) Allergies No Known Allergies Allergy (Verified 04/22/18 14:19) Home Medications: Ambulatory Orders Medication Instructions Recorded Albuterol Aerosols [Ventolin 2.5 mg INHALATION Q6HWA.RT PRN 12/30/13 Aerosols] Aspirin [Aspirin, Baby] 81 mg PO DAILY@0800 12/30/13 [place] Carbonate [Lithobid] 300 mg PO BID 12/30/13 Metoprolol Tartrate [Lopressor 50 mg PO BID 12/30/13 (beta carl)] Multivitamins,Ther W-Minerals 1 tablet PO DAILY 12/30/13 [Multivitamin With Minerals] Simvastatin [Zocor] 40 mg PO QHS 12/30/13 Venlafaxine XR [Effexor Xr] 75 mg PO DAILY 12/30/13 Venlafaxine XR [Effexor Xr] 150 mg PO DAILY 12/30/13 Warfarin [Coumadin] 4 mg PO DAILY 12/30/13 traZODone [Desyrel] 50 mg PO QHS 12/30/13 Cholecalciferol (Vitamin D3) 5,000 unit PO DAILY 04/22/18 [Vitamin D3] Mirtazapine 30 mg PO QHS 04/22/18 Ciprofloxacin [Cipro] 500 mg PO BID 04/25/18 Enoxaparin [Lovenox] 70 mg SC Q12@0600,1800 04/25/18 Oxycodone HCl/Acetaminophen 1 tab PO Q6H PRN #4 tab 04/25/18 [Percocet 5-325] Surgical History: hysterectomy - With bilateral oophorectomy at 38 years of age due to endometriosis, - - Right carotid endarterectomy 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 Denies: Chills, Fever, Weight Change HEENT: Denies: Head Aches, Sinus Congestion, Sinus Drainage Cardiovascular: Denies: Chest Pain, Palpitations Respiratory: Denies: Cough, Shortness of breath at rest, Sputum production Gastrointestinal: Denies: Abdominal Pain, Nausea, Vomiting Genitourinary: Denies: Dysuria Musculoskeletal: Denies: Joint Pain, Joint Tenderness Skin: Denies: Rash, Wounds Neurological: Denies: Numbness, Tingling, Focal weakness Psychiatric: Denies: Anxiety, Depression, Homicidal Ideations, Suicidal Ideations Hematologic/ Lymphatic: Denies: Easy Bruising, Easy Bleeding VTE Information - Inpt Only VTE Present on Admission: No VTE Mechan Device Prophylaxis: Knee High GAIL Hose VTE Pharm Prophylaxis ordered?: No Reason prophylaxis not ordered:: Treatment Not Indicated Patient Problems: Active and Suspected Problems Weakness (Acute) Pulmonary embolism (Acute) E. coli UTI (Acute) - Physical Exam General: Alert, Oriented x3, Cooperative HEENT: Atraumatic, PERRLA, EOMI, Normocephalic Neck: Supple, No JVD, Negative Carotid Bruits Lungs: Clear to auscultation, Normal air movement Cardiovascular: Regular rate, No murmurs Abdomen: Bowel Sounds Present, Soft, Non Tender Extremities: No edema, Capillary Refill Less than 3 Seconds Skin: No rashes, No breakdown, Incision - Right CEA clean, dry, intact. Musculoskeletal: No Tenderness to Palpation of Joints or Extremities Neurological: Cranial nerves II-XII grossly intact Psych/Mental Status: Normal Affect, Appropriate Vital Signs Temp Pulse Resp BP Pulse Ox 97.8 F 60 18 171/81 H 94 04/25/18 17:00 04/25/18 17:00 04/25/18 17:00 04/25/18 17:00 04/25/18 17:00 Oxygen Delivery Method Room Air Weight: 69.4 kg Body Mass Index (BMI) 29.9 Assessment/Plan All Active Problems Weakness (Acute) Pulmonary embolism (Acute) E. coli UTI (Acute) PUD (peptic ulcer disease) (Resolved) 83 year old female with below past medical history hospitalized for weakness secondary to pulmonary embolism, complicated by E. Coli UTI, admitted to TCU with debility, here for rehabilitation, strengthening, prior to discharge home with family. * Debility - PT/OT. * Pain - Tylenol 1000MG Q8H PRN mild pain, Oxycodone 5MG Q6H PRN severe pain. * Bowel - Miralax 17GM daily, Senna/colace 1 tablet BID, Dulcolax 10MG PO daily PRN. * Pneumonia vaccination - Administer Prevnar 13 and/or Pneumovax 23 as necessary. * DVT prophylaxis - on Lovenox/coumadin bridge. * Shortness of breath - Albuterol 2.5MG Q6H PRN. * CV prophylaxis - Aspirin 81MG daily. * Hyperlipidemia - Atorvastatin 20MG QHS. * E. Coli UTI - Cipro 500MG BID thru 05/05/2018, sensitivity to Cipro confirmed. * Bipolar Disorder - Remington 300MG BID. * Hypertension - Metoprolol 50MG BID. * Depression/insomnia/appetite decreased - Remeron 30MG QHS, consider lowering dose to 15MG, high dose Remeron has increased side effects without increased benefit. * Nutrition - MVI daily. * Insomnia - Trazodone 50MG QHS. * Depression - Venlafaxine 225MG daily. * Pulmonary Embolism - Lovenox 70MG SC Q12H bridge, warfarin 4MG daily, follow INR.
[2018-04-25] MEDS: Enoxaparin 80 MG/0.8 ML Syringe 70 MG SC (20:31)
[2018-04-25] MEDS: Lithium Carbonate 300mg Capsule 300 MG PO (20:32)
[2018-04-25] MEDS: Ciprofloxacin 500 MG Tablet PO (20:32)
[2018-04-25] MEDS: traZODone 50 MG Tablet PO (20:32)
[2018-04-25] MEDS: Atorvastatin Calcium 20 MG Tablet PO (20:32)
[2018-04-25 20:35] VITALS: BP 171/89; PULSE 60
[2018-04-25] MEDS: Metoprolol Tartrate 50 MG Tablet PO (20:35)
[2018-04-25 20:37] VITALS: O2SAT 97
[2018-04-25] MEDS: Mirtazapine 15 MG Tablet PO (21:23)
[2018-04-26] MEDS: oxyCODONE 5 MG Tablet PO ×2 (01:07→16:31)
[2018-04-26] MEDS: Ciprofloxacin 500 MG Tablet PO ×2 (08:19→16:27)
[2018-04-26] MEDS: Aspirin 81 MG TAB.CHEW PO (08:19)
[2018-04-26] MEDS: Multivitamins,Ther W-Minerals Tablet 1 TABLET PO (08:19)
[2018-04-26] MEDS: Venlafaxine XR 75 MG Capsule PO (08:22)
[2018-04-26 08:23] VITALS: BP 142/67; PULSE 61
[2018-04-26 08:23] LABS: Absolute Lymphocyte Count 1.73 X10^3/ul (0.83-4.51); Absolute Neutrophil Count 5.5 X10^3/uL (2.0-7.7); Basophil# 0.05 X10^3/uL; Basophil% 0.6 % (0-1); Eosinophil# 0.44 X10^3/uL; Eosinophils% 5.1 % (0-5); Hemoglobin 13.1 g/dl (12.0-15.0); Lymphocyte # 1.73 X10^3/ul (4.0); Lymphocyte % 20.2 % (19-41); Mean Corp Hgb Conc 30.5 g/gl (32-36); Mean Corpuscular Hgb 29.5 pg (27.0-32.0); Mean Corpuscular Volume 96.8 fL (81-99); Mean Platelet Vol. 10.2 fl (6.2-12.0); Monocyte# 0.87 X10^3/uL; Monocyte% 10.2 % (0-10); Neutrophil # 5.45 X10^3/uL (2.7-7.7); Neutrophil % 63.8 % (47-70); Platelet Count 228 K/mm3 (150-450); RBC Distribution Width CV 14.4 % (11.6-14.6); RBC Distribution Width SD 50.7 fl (35.1-43.9); Red Blood Count 4.44 M/mm3 (4.2-5.4); White Blood Count 8.6 K/mm3 (4.4-11.0)
[2018-04-26] MEDS: Venlafaxine XR 150 MG Capsule PO (08:23)
[2018-04-26] MEDS: Metoprolol Tartrate 50 MG Tablet PO ×2 (08:23→16:28)
[2018-04-26] MEDS: Lithium Carbonate 300mg Capsule 300 MG PO ×2 (08:23→16:27)
[2018-04-26 08:24] LABS: POSITIVE COUNT NO; POSITIVE DIFFERENTIAL NO; POSITIVE MORPHOLOGY NO
[2018-04-26] MEDS: Enoxaparin 80 MG/0.8 ML Syringe 70 MG SC ×2 (08:24→16:28)
[2018-04-26] MEDS: Polyethylene Glycol 3350 17 GM PACKET PO (08:30)
[2018-04-26] MEDS: Senna/Docusate Sodium 1 Tablet PO ×2 (08:32→16:31)
[2018-04-26 08:35] LABS: Anion Gap 3 (5-15); BUN 14 mg/dL (7-18); BUN/Creat Ratio 15.6 RATIO (10-20); Calcium,Total 9.9 mg/dL (8.5-10.1); Chloride 103 mmol/L (98-107); EST Glomerular Filtration Rate 64 mL/min (>60); Est Glom Filt Rate - Afr Amer 77 mL/min (>60); Estimated Creatinine Clearance 34.02 ml/min; Glucose 110 mg/dL (74-106); Sodium Level 138 mmol/L (136-145)
[2018-04-26] MEDS: Tuberculin,Purif.prot.deriv. 50 TU/ML Vial 5 ML ID (13:27)
[2018-04-26 15:25] VITALS: BP 137/63; PULSE 62; RESP 18; TEMP 36.3; O2SAT 95
[2018-04-26] MEDS: Bisacodyl 5 MG Tablet 10 MG PO (16:26)
[2018-04-26 16:28] VITALS: PULSE 62
[2018-04-26] MEDS: Atorvastatin Calcium 20 MG Tablet PO (20:22)
[2018-04-26] MEDS: traZODone 50 MG Tablet PO (20:22)
[2018-04-26] MEDS: Mirtazapine 15 MG Tablet PO (20:24)
[2018-04-27 06:42] LABS: International Normalized Ratio 1.3; Prothrombin Time (Protime)PT. 16.6 SECONDS (11.7-14.9)
[2018-04-27] MEDS: Multivitamins,Ther W-Minerals Tablet 1 TABLET PO (08:30)
[2018-04-27] MEDS: Venlafaxine XR 75 MG Capsule PO (08:30)
[2018-04-27] MEDS: Ciprofloxacin 500 MG Tablet PO ×2 (08:30→18:18)
[2018-04-27] MEDS: Enoxaparin 80 MG/0.8 ML Syringe 70 MG SC ×2 (08:30→18:18)
[2018-04-27] MEDS: Aspirin 81 MG TAB.CHEW PO (08:30)
[2018-04-27] MEDS: Lithium Carbonate 300mg Capsule 300 MG PO ×2 (08:30→18:17)
[2018-04-27] MEDS: Venlafaxine XR 150 MG Capsule PO (08:30)
[2018-04-27 08:35] VITALS: BP 139/57; PULSE 75
[2018-04-27] MEDS: Metoprolol Tartrate 50 MG Tablet PO ×2 (08:35→18:19)
[2018-04-27 15:35] VITALS: BP 145/53; PULSE 64; RESP 18; TEMP 36.3; O2SAT 97
--- NOTE | 2018-04-27 15:40 | NURSING ---
Patient has c/o constipation, no BM x3 days, NO for mag citrate x1 bottle now.
[2018-04-27] MEDS: Senna/Docusate Sodium 1 Tablet PO (18:18)
[2018-04-27 18:19] VITALS: PULSE 65
[2018-04-27] MEDS: traZODone 50 MG Tablet PO (21:42)
[2018-04-27] MEDS: Atorvastatin Calcium 20 MG Tablet PO (21:42)
[2018-04-27] MEDS: Mirtazapine 15 MG Tablet PO (21:43)
[2018-04-28 05:57] LABS: International Normalized Ratio 1.5; Prothrombin Time (Protime)PT. 18.1 SECONDS (11.7-14.9)
[2018-04-28] MEDS: Polyethylene Glycol 3350 17 GM PACKET PO (07:47)
[2018-04-28 07:49] VITALS: PULSE 76
[2018-04-28] MEDS: Ciprofloxacin 500 MG Tablet PO ×2 (07:49→16:40)
[2018-04-28] MEDS: Venlafaxine XR 150 MG Capsule PO (07:49)
[2018-04-28] MEDS: Multivitamins,Ther W-Minerals Tablet 1 TABLET PO (07:49)
[2018-04-28] MEDS: Metoprolol Tartrate 50 MG Tablet PO ×2 (07:49→16:40)
[2018-04-28] MEDS: Aspirin 81 MG TAB.CHEW PO (07:49)
[2018-04-28] MEDS: Lithium Carbonate 300mg Capsule 300 MG PO ×2 (07:49→16:40)
[2018-04-28] MEDS: Venlafaxine XR 75 MG Capsule PO (07:49)
[2018-04-28] MEDS: Enoxaparin 80 MG/0.8 ML Syringe 70 MG SC ×2 (10:09→16:41)
[2018-04-28 16:00] VITALS: BP 166/74; PULSE 67; RESP 16; TEMP 36.7; O2SAT 91
[2018-04-28 16:40] VITALS: PULSE 67
[2018-04-28] MEDS: Senna/Docusate Sodium 1 Tablet PO (16:41)
[2018-04-28 17:46] VITALS: BP 154/67
[2018-04-28] MEDS: traZODone 50 MG Tablet PO (20:59)
[2018-04-28] MEDS: Mirtazapine 15 MG Tablet PO (20:59)
[2018-04-28] MEDS: Atorvastatin Calcium 20 MG Tablet PO (20:59)
[2018-04-28 21:54] VITALS: O2SAT 96
[2018-04-29 08:08] VITALS: BP 147/56; PULSE 78
[2018-04-29] MEDS: Metoprolol Tartrate 50 MG Tablet PO ×2 (08:08→17:33)
[2018-04-29] MEDS: Venlafaxine XR 150 MG Capsule PO (08:08)
[2018-04-29] MEDS: Aspirin 81 MG TAB.CHEW PO (08:08)
[2018-04-29] MEDS: Multivitamins,Ther W-Minerals Tablet 1 TABLET PO (08:08)
[2018-04-29] MEDS: Venlafaxine XR 75 MG Capsule PO (08:08)
[2018-04-29] MEDS: Senna/Docusate Sodium 1 Tablet PO ×2 (08:08→17:35)
[2018-04-29] MEDS: Enoxaparin 80 MG/0.8 ML Syringe 70 MG SC ×2 (08:12→17:35)
[2018-04-29] MEDS: Polyethylene Glycol 3350 17 GM PACKET PO (08:12)
[2018-04-29] MEDS: Lithium Carbonate 300mg Capsule 300 MG PO ×2 (08:13→17:33)
[2018-04-29] MEDS: Ciprofloxacin 500 MG Tablet PO ×2 (08:13→17:33)
--- NOTE | 2018-04-29 10:01 | CASEMGMT ---
Plan of care meeting held. Resident present as well as resident family. No discharge date set at this time. Resident to discharge home alone at time of discharge. Resident to continue with further care and treatment on the Transitional Care Unit. Support given. Tentative discharge plan: Discharge home alone possible home health services. Will continue to follow. Ange BRASHER, [employer]
--- NOTE | 2018-04-29 11:00 | NURSING ---
Patient changed to regular diet per lift truck operator.
--- NOTE | 2018-04-29 14:22 | PCM.PN.RX ---
<Venkatesh Jurado D - Last Filed: 04/29/18 14:22> Progress Note - Pharmacy Subjective: TCU Admission Objective: Allergies No Known Allergies Allergy (Verified 04/22/18 14:19) Current Medications Generic Name Dose Route Start Last Admin Trade Name Freq PRN Reason Stop Dose Admin Acetaminophen 1,000 mg 04/25/18 19:30 Tylenol PO Q8H PRN PRN MILD PAIN (1-3/10) Albuterol Sulfate 2.5 mg 04/25/18 17:14 Ventolin Aerosols INHALATION Q6HWA.RT PRN SOB &/OR WHEEZING Aspirin 81 mg 04/26/18 08:00 04/29/18 08:08 Aspirin, Baby PO 81 mg DAILY@0800 ZAHRAA Administration Atorvastatin Calcium 20 mg 04/25/18 22:00 04/28/18 20:59 Lipitor PO 20 mg QHS ZAHRAA Administration Bisacodyl 10 mg 04/25/18 19:31 04/26/18 16:26 Dulcolax PO 10 mg DAILY PRN Administration Constipation Ciprofloxacin HCl 500 mg 04/26/18 08:00 04/29/18 08:13 Cipro PO 05/05/18 18:00 500 mg BID@0800,1800 ZAHRAA Administration Enoxaparin Sodium 70 mg 04/26/18 08:00 04/29/18 08:12 Lovenox SC 70 mg Q12@0800,1800 ZAHRAA Administration [place] Carbonate 300 mg 04/26/18 08:00 04/29/18 08:13 [place] Carbonate PO 300 mg BID@0800,1800 ZAHRAA Administration Metoprolol Tartrate 50 mg 04/26/18 08:00 04/29/18 08:08 Lopressor (Beta Charly) PO 50 mg BID@0800,1800 ZAHRAA Administration Mirtazapine 15 mg 04/25/18 22:00 04/28/18 20:59 Remeron PO 15 mg QHS ZAHRAA Administration Multivitamins/Minerals 1 tablet 04/26/18 08:00 04/29/18 08:08 Multivitamin With Minerals PO 1 tablet DAILYCM ZAHRAA Administration Oxycodone HCl 5 mg 04/25/18 19:32 04/26/18 16:31 Oxyir PO 5 mg Q6H PRN PRN Administration SEVERE PAIN (6-10/10) Polyethylene Glycol 17 gm 04/26/18 08:00 04/29/18 08:12 Miralax PO 17 gm DAILY@0800 COUNT INCLUDES THE [facility] Administration Senna/Docusate Sodium 1 tablet 04/26/18 08:00 04/29/18 08:08 Senokot-S, Nina-Colace PO 1 tablet BID@0800,1800 ZAHRAA Administration Trazodone HCl 50 mg 04/25/18 22:00 04/28/18 20:59 Desyrel PO 50 mg QHS ZAHRAA Administration Tuberculin PPD 5 tu 05/03/18 10:00 Tubersol, Aplisol, Ppd ID 05/03/18 10:01 X1 ONE Venlafaxine HCl 75 mg 04/26/18 08:00 04/29/18 08:08 Effexor Xr PO 75 mg DAILY@0800 ZAHRAA Administration Venlafaxine HCl 150 mg 04/26/18 08:00 04/29/18 08:08 Effexor Xr PO 150 mg DAILY@0800 ZAHRAA Administration Warfarin Sodium 4 mg 04/26/18 17:00 04/28/18 16:40 Coumadin (Pbkc) PO 4 mg DAILY@1700 ZAHRAA Administration Problem List Weakness (Acute) Pulmonary embolism (Acute) E. coli UTI (Acute) Carotid stenosis (Chronic) Osteoarthritis (Chronic) Bipolar disorder (Chronic) Insomnia (Chronic) Decreased appetite (Chronic) Vital Signs Temp Pulse Resp BP Pulse Ox 98.0 F 78 16 147/56 H 96 04/28/18 16:00 04/29/18 08:08 04/28/18 16:00 04/29/18 08:08 04/28/18 21:54 Oxygen Delivery Method Room Air Weight: 68.067 kg Body Mass Index (BMI) 29.9 Sodium 138 mmol/L (136-145) 04/26/18 08:08 Potassium 5.0 mmol/L (3.5-5.1) 04/26/18 08:08 Chloride 103 mmol/L (98-107) 04/26/18 08:08 Carbon Dioxide 32.0 mmol/L (21.0-32.0) 04/26/18 08:08 Anion Gap 3 (5-15) L 04/26/18 08:08 BUN 14 mg/dL (7-18) 04/26/18 08:08 Creatinine 0.90 mg/dL (0.55-1.02) 04/26/18 08:08 Est GFR (MDRD) Af Amer 77 mL/min (>60) 04/26/18 08:08 Est GFR (MDRD) Non-Af 64 mL/min (>60) 04/26/18 08:08 BUN/Creatinine Ratio 15.6 RATIO (10-20) 04/26/18 08:08 Glucose 110 mg/dL (74-106) H 04/26/18 08:08 Assessment/Plan: 1) Pain APAP for mild pain, oxycodone for severe pain. Continue to monitor prn medication use, daily pain scores. 2) Pulm Albuterol aerosols as needed. Continue to monitor prn medication use, for shortness of breath. 3) PE Warfarin with concurrent enoxaparin until INR is therapeutic. Continue to monitor PT/INR, s/s bleeding or worsening clot. 4) ID Ciprofloxacin twice daily until 05/05. Continue to monitor s/s infection. 5) CV ASA, atorvastatin, metoprolol. Continue to monitor lipids, s/s chest pain, BP/HR. Psychotropic Medications: 6) Depression Venlafaxine XR daily, trazodone at HS, lithium twice daily, mirtazapine at HS. Continue to monitor s/s depression, s/s serotonin syndrome such as sweating, agitation, unresolved fever. Unnecessary Medications: None Bowel Regimen: 7) Senna/s, PEG, prn bisacodyl. Continue to monitor prn medication use, for constipation/diarrhea. Date of Note:: 04/29/18 - Provider Comments Provider responsibility: Provider responsible to enter orders to implement recommendations <Shawn Guido Chi - Last Filed: 04/29/18 16:54> Progress Note - Pharmacy Subjective: [] Objective: Allergies No Known Allergies Allergy (Verified 04/22/18 14:19) Current Medications Generic Name Dose Route Start Last Admin Trade Name Freq PRN Reason Stop Dose Admin Acetaminophen 1,000 mg 04/25/18 19:30 Tylenol PO Q8H PRN PRN MILD PAIN (1-3/10) Albuterol Sulfate 2.5 mg 04/25/18 17:14 Ventolin Aerosols INHALATION Q6HWA.RT PRN SOB &/OR WHEEZING Aspirin 81 mg 04/26/18 08:00 04/29/18 08:08 Aspirin, Baby PO 81 mg DAILY@0800 ZAHRAA Administration Atorvastatin Calcium 20 mg 04/25/18 22:00 04/28/18 20:59 Lipitor PO 20 mg QHS ZAHRAA Administration Bisacodyl 10 mg 04/25/18 19:31 04/26/18 16:26 Dulcolax PO 10 mg DAILY PRN Administration Constipation Ciprofloxacin HCl 500 mg 04/26/18 08:00 04/29/18 08:13 Cipro PO 05/05/18 18:00 500 mg BID@0800,1800 ZAHRAA Administration Enoxaparin Sodium 70 mg 04/26/18 08:00 04/29/18 08:12 Lovenox SC 70 mg Q12@0800,1800 ZAHRAA Administration [place] Carbonate 300 mg 04/26/18 08:00 04/29/18 08:13 [place] Carbonate PO 300 mg BID@0800,1800 ZAHRAA Administration Metoprolol Tartrate 50 mg 04/26/18 08:00 04/29/18 08:08 Lopressor (Beta Charly) PO 50 mg BID@0800,1800 ZAHRAA Administration Mirtazapine 15 mg 04/25/18 22:00 04/28/18 20:59 Remeron PO 15 mg QHS ZAHRAA Administration Multivitamins/Minerals 1 tablet 04/26/18 08:00 04/29/18 08:08 Multivitamin With Minerals PO 1 tablet DAILYCM ZAHRAA Administration Oxycodone HCl 5 mg 04/25/18 19:32 04/26/18 16:31 Oxyir PO 5 mg Q6H PRN PRN Administration SEVERE PAIN (6-10/10) Polyethylene Glycol 17 gm 04/26/18 08:00 04/29/18 08:12 Miralax PO 17 gm DAILY@0800 ZAHRAA Administration Senna/Docusate Sodium 1 tablet 04/26/18 08:00 04/29/18 08:08 Senokot-S, Nina-Colace PO 1 tablet BID@0800,1800 COUNT INCLUDES THE [facility] Administration Trazodone HCl 50 mg 04/25/18 22:00 04/28/18 20:59 Desyrel PO 50 mg QHS ZAHRAA Administration Tuberculin PPD 5 tu 05/03/18 10:00 Tubersol, Aplisol, Ppd ID 05/03/18 10:01 X1 ONE Venlafaxine HCl 75 mg 04/26/18 08:00 04/29/18 08:08 Effexor Xr PO 75 mg DAILY@0800 COUNT INCLUDES THE [facility] Administration Venlafaxine HCl 150 mg 04/26/18 08:00 04/29/18 08:08 Effexor Xr PO 150 mg DAILY@0800 COUNT INCLUDES THE [facility] Administration Warfarin Sodium 4 mg 04/26/18 17:00 04/28/18 16:40 Coumadin (Pbkc) PO 4 mg DAILY@1700 COUNT INCLUDES THE [facility] Administration Problem List Weakness (Acute) Pulmonary embolism (Acute) E. coli UTI (Acute) Carotid stenosis (Chronic) Osteoarthritis (Chronic) Bipolar disorder (Chronic) Insomnia (Chronic) Decreased appetite (Chronic) Vital Signs Temp Pulse Resp BP Pulse Ox 98.2 F 66 18 147/63 H 95 04/29/18 15:41 04/29/18 15:41 04/29/18 15:41 04/29/18 15:41 04/29/18 15:41 Oxygen Delivery Method Room Air Weight: 68.067 kg Body Mass Index (BMI) 29.9 Sodium 138 mmol/L (136-145) 04/26/18 08:08 Potassium 5.0 mmol/L (3.5-5.1) 04/26/18 08:08 Chloride 103 mmol/L (98-107) 04/26/18 08:08 Carbon Dioxide 32.0 mmol/L (21.0-32.0) 04/26/18 08:08 Anion Gap 3 (5-15) L 04/26/18 08:08 BUN 14 mg/dL (7-18) 04/26/18 08:08 Creatinine 0.90 mg/dL (0.55-1.02) 04/26/18 08:08 Est GFR (MDRD) Af Amer 77 mL/min (>60) 04/26/18 08:08 Est GFR (MDRD) Non-Af 64 mL/min (>60) 04/26/18 08:08 BUN/Creatinine Ratio 15.6 RATIO (10-20) 04/26/18 08:08 Glucose 110 mg/dL (74-106) H 04/26/18 08:08 Assessment/Plan: Psychotropic Medications: Unnecessary Medications: Bowel Regimen: - Provider Comments Provider responsibility: Provider responsible to enter orders to implement recommendations Provider Comments to Recommendations by Pharmacy: Agree
--- NOTE | 2018-04-29 14:32 | PHA.CONS_ITS ---
<Venkatesh Jurado D - Last Filed: 04/29/18 14:22> Progress Note - Pharmacy Subjective: TCU Admission Objective: Allergies No Known Allergies Allergy (Verified 04/22/18 14:19) Current Medications Generic Name Dose Route Start Last Admin Trade Name Freq PRN Reason Stop Dose Admin Acetaminophen 1,000 mg 04/25/18 19:30 Tylenol PO Q8H PRN PRN MILD PAIN (1-3/10) Albuterol Sulfate 2.5 mg 04/25/18 17:14 Ventolin Aerosols INHALATION Q6HWA.RT PRN SOB &/OR WHEEZING Aspirin 81 mg 04/26/18 08:00 04/29/18 08:08 Aspirin, Baby PO 81 mg DAILY@0800 ZAHRAA Administration Atorvastatin Calcium 20 mg 04/25/18 22:00 04/28/18 20:59 Lipitor PO 20 mg QHS ZAHRAA Administration Bisacodyl 10 mg 04/25/18 19:31 04/26/18 16:26 Dulcolax PO 10 mg DAILY PRN Administration Constipation Ciprofloxacin HCl 500 mg 04/26/18 08:00 04/29/18 08:13 Cipro PO 05/05/18 18:00 500 mg BID@0800,1800 ZAHRAA Administration Enoxaparin Sodium 70 mg 04/26/18 08:00 04/29/18 08:12 Lovenox SC 70 mg Q12@0800,1800 ZAHRAA Administration [place] Carbonate 300 mg 04/26/18 08:00 04/29/18 08:13 [place] Carbonate PO 300 mg BID@0800,1800 ZAHRAA Administration Metoprolol Tartrate 50 mg 04/26/18 08:00 04/29/18 08:08 Lopressor (Beta Charly) PO 50 mg BID@0800,1800 ZAHRAA Administration Mirtazapine 15 mg 04/25/18 22:00 04/28/18 20:59 Remeron PO 15 mg QHS ZAHRAA Administration Multivitamins/Minerals 1 tablet 04/26/18 08:00 04/29/18 08:08 Multivitamin With Minerals PO 1 tablet DAILYCM ZAHRAA Administration Oxycodone HCl 5 mg 04/25/18 19:32 04/26/18 16:31 Oxyir PO 5 mg Q6H PRN PRN Administration SEVERE PAIN (6-10/10) Polyethylene Glycol 17 gm 04/26/18 08:00 04/29/18 08:12 Miralax PO 17 gm DAILY@0800 [facility] Administration Senna/Docusate Sodium 1 tablet 04/26/18 08:00 04/29/18 08:08 Senokot-S, Nina-Colace PO 1 tablet BID@0800,1800 ZAHRAA Administration Trazodone HCl 50 mg 04/25/18 22:00 04/28/18 20:59 Desyrel PO 50 mg QHS ZAHRAA Administration Tuberculin PPD 5 tu 05/03/18 10:00 Tubersol, Aplisol, Ppd ID 05/03/18 10:01 X1 ONE Venlafaxine HCl 75 mg 04/26/18 08:00 04/29/18 08:08 Effexor Xr PO 75 mg DAILY@0800 ZAHRAA Administration Venlafaxine HCl 150 mg 04/26/18 08:00 04/29/18 08:08 Effexor Xr PO 150 mg DAILY@0800 ZAHRAA Administration Warfarin Sodium 4 mg 04/26/18 17:00 04/28/18 16:40 Coumadin (Pbkc) PO 4 mg DAILY@1700 ZAHRAA Administration Problem List Weakness (Acute) Pulmonary embolism (Acute) E. coli UTI (Acute) Carotid stenosis (Chronic) Osteoarthritis (Chronic) Bipolar disorder (Chronic) Insomnia (Chronic) Decreased appetite (Chronic) Vital Signs Temp Pulse Resp BP Pulse Ox 98.0 F 78 16 147/56 H 96 04/28/18 16:00 04/29/18 08:08 04/28/18 16:00 04/29/18 08:08 04/28/18 21:54 Oxygen Delivery Method Room Air Weight: 68.067 kg Body Mass Index (BMI) 29.9 Sodium 138 mmol/L (136-145) 04/26/18 08:08 Potassium 5.0 mmol/L (3.5-5.1) 04/26/18 08:08 Chloride 103 mmol/L (98-107) 04/26/18 08:08 Carbon Dioxide 32.0 mmol/L (21.0-32.0) 04/26/18 08:08 Anion Gap 3 (5-15) L 04/26/18 08:08 BUN 14 mg/dL (7-18) 04/26/18 08:08 Creatinine 0.90 mg/dL (0.55-1.02) 04/26/18 08:08 Est GFR (MDRD) Af Amer 77 mL/min (>60) 04/26/18 08:08 Est GFR (MDRD) Non-Af 64 mL/min (>60) 04/26/18 08:08 BUN/Creatinine Ratio 15.6 RATIO (10-20) 04/26/18 08:08 Glucose 110 mg/dL (74-106) H 04/26/18 08:08 Assessment/Plan: 1) Pain APAP for mild pain, oxycodone for severe pain. Continue to monitor prn medication use, daily pain scores. 2) Pulm Albuterol aerosols as needed. Continue to monitor prn medication use, for shortness of breath. 3) PE Warfarin with concurrent enoxaparin until INR is therapeutic. Continue to monitor PT/INR, s/s bleeding or worsening clot. 4) ID Ciprofloxacin twice daily until 05/05. Continue to monitor s/s infection. 5) CV ASA, atorvastatin, metoprolol. Continue to monitor lipids, s/s chest pain, BP /HR. Psychotropic Medications: 6) Depression Venlafaxine XR daily, trazodone at HS, lithium twice daily, mirtazapine at HS. Continue to monitor s/s depression, s/s serotonin syndrome such as sweating , agitation, unresolved fever. Unnecessary Medications: None Bowel Regimen: 7) Senna/s, PEG, prn bisacodyl. Continue to monitor prn medication use, for constipation/diarrhea. Date of Note:: 04/29/18 - Provider Comments Provider responsibility: Provider responsible to enter orders to implement recommendations <Shawn Guido Chi - Last Filed: 04/29/18 16:54> Progress Note - Pharmacy Subjective: [] Objective: Allergies No Known Allergies Allergy (Verified 04/22/18 14:19) Current Medications Generic Name Dose Route Start Last Admin Trade Name Freq PRN Reason Stop Dose Admin Acetaminophen 1,000 mg 04/25/18 19:30 Tylenol PO Q8H PRN PRN MILD PAIN (1-3/10) Albuterol Sulfate 2.5 mg 04/25/18 17:14 Ventolin Aerosols INHALATION Q6HWA.RT PRN SOB &/OR WHEEZING Aspirin 81 mg 04/26/18 08:00 04/29/18 08:08 Aspirin, Baby PO 81 mg DAILY@0800 ZAHRAA Administration Atorvastatin Calcium 20 mg 04/25/18 22:00 04/28/18 20:59 Lipitor PO 20 mg QHS ZAHRAA Administration Bisacodyl 10 mg 04/25/18 19:31 04/26/18 16:26 Dulcolax PO 10 mg DAILY PRN Administration Constipation Ciprofloxacin HCl 500 mg 04/26/18 08:00 04/29/18 08:13 Cipro PO 05/05/18 18:00 500 mg BID@0800,1800 ZAHRAA Administration Enoxaparin Sodium 70 mg 04/26/18 08:00 04/29/18 08:12 Lovenox SC 70 mg Q12@0800,1800 ZAHRAA Administration [place] Carbonate 300 mg 04/26/18 08:00 04/29/18 08:13 [place] Carbonate PO 300 mg BID@0800,1800 ZAHRAA Administration Metoprolol Tartrate 50 mg 04/26/18 08:00 04/29/18 08:08 Lopressor (Beta Charly) PO 50 mg BID@0800,1800 ZAHRAA Administration Mirtazapine 15 mg 04/25/18 22:00 04/28/18 20:59 Remeron PO 15 mg QHS ZAHRAA Administration Multivitamins/Minerals 1 tablet 04/26/18 08:00 04/29/18 08:08 Multivitamin With Minerals PO 1 tablet DAILYCM ZAHRAA Administration Oxycodone HCl 5 mg 04/25/18 19:32 04/26/18 16:31 Oxyir PO 5 mg Q6H PRN PRN Administration SEVERE PAIN (6-10/10) Polyethylene Glycol 17 gm 04/26/18 08:00 04/29/18 08:12 Miralax PO 17 gm DAILY@0800 ZAHRAA Administration Senna/Docusate Sodium 1 tablet 04/26/18 08:00 04/29/18 08:08 Senokot-S, Nina-Colace PO 1 tablet BID@0800,1800 [facility] Administration Trazodone HCl 50 mg 04/25/18 22:00 04/28/18 20:59 Desyrel PO 50 mg QHS ZAHRAA Administration Tuberculin PPD 5 tu 05/03/18 10:00 Tubersol, Aplisol, Ppd ID 05/03/18 10:01 X1 ONE Venlafaxine HCl 75 mg 04/26/18 08:00 04/29/18 08:08 Effexor Xr PO 75 mg DAILY@0800 [facility] Administration Venlafaxine HCl 150 mg 04/26/18 08:00 04/29/18 08:08 Effexor Xr PO 150 mg DAILY@0800 [facility] Administration Warfarin Sodium 4 mg 04/26/18 17:00 04/28/18 16:40 Coumadin (Pbkc) PO 4 mg DAILY@1700 [facility] Administration Problem List Weakness (Acute) Pulmonary embolism (Acute) E. coli UTI (Acute) Carotid stenosis (Chronic) Osteoarthritis (Chronic) Bipolar disorder (Chronic) Insomnia (Chronic) Decreased appetite (Chronic) Vital Signs Temp Pulse Resp BP Pulse Ox 98.2 F 66 18 147/63 H 95 04/29/18 15:41 04/29/18 15:41 04/29/18 15:41 04/29/18 15:41 04/29/18 15:41 Oxygen Delivery Method Room Air Weight: 68.067 kg Body Mass Index (BMI) 29.9 Sodium 138 mmol/L (136-145) 04/26/18 08:08 Potassium 5.0 mmol/L (3.5-5.1) 04/26/18 08:08 Chloride 103 mmol/L (98-107) 04/26/18 08:08 Carbon Dioxide 32.0 mmol/L (21.0-32.0) 04/26/18 08:08 Anion Gap 3 (5-15) L 04/26/18 08:08 BUN 14 mg/dL (7-18) 04/26/18 08:08 Creatinine 0.90 mg/dL (0.55-1.02) 04/26/18 08:08 Est GFR (MDRD) Af Amer 77 mL/min (>60) 04/26/18 08:08 Est GFR (MDRD) Non-Af 64 mL/min (>60) 04/26/18 08:08 BUN/Creatinine Ratio 15.6 RATIO (10-20) 04/26/18 08:08 Glucose 110 mg/dL (74-106) H 04/26/18 08:08 Assessment/Plan: Psychotropic Medications: Unnecessary Medications: Bowel Regimen: - Provider Comments Provider responsibility: Provider responsible to enter orders to implement recommendations Provider Comments to Recommendations by Pharmacy: Agree
[2018-04-29 15:41] VITALS: BP 147/63; PULSE 66; RESP 18; TEMP 36.8; O2SAT 95
[2018-04-29 17:33] VITALS: BP 147/63; PULSE 66
[2018-04-29 19:30] LABS: International Normalized Ratio 1.8; Prothrombin Time (Protime)PT. 21.2 SECONDS (11.7-14.9)
[2018-04-29] MEDS: Atorvastatin Calcium 20 MG Tablet PO (20:19)
[2018-04-29] MEDS: traZODone 50 MG Tablet PO (20:19)
[2018-04-29] MEDS: Mirtazapine 15 MG Tablet PO (20:19)
[2018-04-30 08:09] VITALS: PULSE 76
[2018-04-30] MEDS: Metoprolol Tartrate 50 MG Tablet PO ×2 (08:09→17:15)
[2018-04-30] MEDS: Multivitamins,Ther W-Minerals Tablet 1 TABLET PO (08:09)
[2018-04-30] MEDS: Senna/Docusate Sodium 1 Tablet PO ×2 (08:09→17:15)
[2018-04-30] MEDS: Venlafaxine XR 150 MG Capsule PO (08:10)
[2018-04-30] MEDS: Aspirin 81 MG TAB.CHEW PO (08:10)
[2018-04-30] MEDS: Venlafaxine XR 75 MG Capsule PO (08:10)
[2018-04-30] MEDS: Ciprofloxacin 500 MG Tablet PO ×2 (08:10→17:15)
[2018-04-30] MEDS: Polyethylene Glycol 3350 17 GM PACKET PO (08:10)
[2018-04-30] MEDS: Lithium Carbonate 300mg Capsule 300 MG PO ×2 (08:10→17:15)
[2018-04-30] MEDS: Enoxaparin 80 MG/0.8 ML Syringe 70 MG SC ×2 (08:10→17:16)
[2018-04-30] MEDS: Acetaminophen 500 MG Tablet 1000 MG PO (09:15)
[2018-04-30 15:48] VITALS: BP 131/52; PULSE 66; RESP 18; TEMP 36.7; O2SAT 93
[2018-04-30 17:15] VITALS: BP 131/52; PULSE 66
[2018-04-30] MEDS: Atorvastatin Calcium 20 MG Tablet PO (21:50)
[2018-04-30] MEDS: traZODone 50 MG Tablet PO (21:50)
[2018-04-30] MEDS: Mirtazapine 15 MG Tablet PO (21:50)
[2018-04-30] MEDS: Bisacodyl 5 MG Tablet 10 MG PO (21:50)
[2018-05-01 05:59] LABS: International Normalized Ratio 2.1; Prothrombin Time (Protime)PT. 23.4 SECONDS (11.7-14.9)
[2018-05-01] MEDS: Aspirin 81 MG TAB.CHEW PO (10:43)
[2018-05-01] MEDS: Ciprofloxacin 500 MG Tablet PO ×2 (10:43→16:55)
[2018-05-01] MEDS: Venlafaxine XR 150 MG Capsule PO (10:44)
[2018-05-01] MEDS: Lithium Carbonate 300mg Capsule 300 MG PO ×2 (10:44→16:55)
[2018-05-01] MEDS: Venlafaxine XR 75 MG Capsule PO (10:44)
[2018-05-01] MEDS: Enoxaparin 80 MG/0.8 ML Syringe 70 MG SC (10:45)
[2018-05-01] MEDS: Senna/Docusate Sodium 1 Tablet PO ×2 (10:46→16:55)
[2018-05-01] MEDS: Multivitamins,Ther W-Minerals Tablet 1 TABLET PO (10:46)
[2018-05-01 10:48] VITALS: BP 136/61; PULSE 79
[2018-05-01] MEDS: Metoprolol Tartrate 50 MG Tablet PO ×2 (10:48→16:54)
[2018-05-01 15:43] VITALS: BP 130/54; PULSE 67; RESP 16; TEMP 36.6; O2SAT 96
[2018-05-01 16:54] VITALS: BP 130/54; PULSE 67
[2018-05-01] MEDS: Atorvastatin Calcium 20 MG Tablet PO (19:44)
[2018-05-01] MEDS: traZODone 50 MG Tablet PO (19:44)
[2018-05-01] MEDS: Mirtazapine 15 MG Tablet PO (19:45)
[2018-05-02] MEDS: Venlafaxine XR 150 MG Capsule PO (07:59)
[2018-05-02] MEDS: Ciprofloxacin 500 MG Tablet PO ×2 (07:59→17:10)
[2018-05-02] MEDS: Venlafaxine XR 75 MG Capsule PO (07:59)
[2018-05-02] MEDS: Aspirin 81 MG TAB.CHEW PO (07:59)
[2018-05-02 08:00] VITALS: PULSE 68
[2018-05-02] MEDS: Metoprolol Tartrate 50 MG Tablet PO ×2 (08:00→17:10)
[2018-05-02] MEDS: Lithium Carbonate 300mg Capsule 300 MG PO ×2 (08:00→17:09)
[2018-05-02] MEDS: Multivitamins,Ther W-Minerals Tablet 1 TABLET PO (08:00)
[2018-05-02] MEDS: Senna/Docusate Sodium 1 Tablet PO ×2 (08:00→17:11)
[2018-05-02] MEDS: Polyethylene Glycol 3350 17 GM PACKET PO (08:00)
[2018-05-02 14:59] VITALS: BP 146/53; PULSE 66; RESP 18; TEMP 36.4; O2SAT 93
[2018-05-02 17:10] VITALS: PULSE 72
[2018-05-02] MEDS: oxyCODONE 5 MG Tablet PO (17:22)
[2018-05-02] MEDS: Atorvastatin Calcium 20 MG Tablet PO (21:18)
[2018-05-02] MEDS: traZODone 50 MG Tablet PO (21:18)
[2018-05-02] MEDS: Mirtazapine 15 MG Tablet PO (21:19)
[2018-05-03 00:14] VITALS: O2SAT 94
[2018-05-03 06:59] LABS: Absolute Lymphocyte Count 1.54 X10^3/ul (0.83-4.51); Absolute Neutrophil Count 6.3 X10^3/uL (2.0-7.7); Basophil# 0.04 X10^3/uL; Basophil% 0.4 % (0-1); Eosinophil# 0.38 X10^3/uL; Eosinophils% 4.1 % (0-5); Hematocrit 37.1 % (37-47); Hemoglobin 11.5 g/dl (12.0-15.0); Lymphocyte # 1.54 X10^3/ul (4.0); Lymphocyte % 16.7 % (19-41); Mean Corpuscular Hgb 29.9 pg (27.0-32.0); Mean Corpuscular Volume 96.6 fL (81-99); Mean Platelet Vol. 10.5 fl (6.2-12.0); Monocyte# 0.96 X10^3/uL; Monocyte% 10.4 % (0-10); Neutrophil # 6.28 X10^3/uL (2.7-7.7); Neutrophil % 68.3 % (47-70); Platelet Count 248 K/mm3 (150-450); RBC Distribution Width CV 14.7 % (11.6-14.6); RBC Distribution Width SD 52.2 fl (35.1-43.9); Red Blood Count 3.84 M/mm3 (4.2-5.4); White Blood Count 9.2 K/mm3 (4.4-11.0)
[2018-05-03 07:07] LABS: POSITIVE COUNT NO; POSITIVE DIFFERENTIAL NO; POSITIVE MORPHOLOGY NO
[2018-05-03 07:13] LABS: Anion Gap 7 (5-15); BUN 18 mg/dL (7-18); BUN/Creat Ratio 21.3 RATIO (10-20); Chloride 107 mmol/L (98-107); Creatinine, Serum 0.84 mg/dL (0.55-1.02); EST Glomerular Filtration Rate 68 mL/min (>60); Est Glom Filt Rate - Afr Amer 83 mL/min (>60); Estimated Creatinine Clearance 36.45 ml/min; Glucose 113 mg/dL (74-106); Potassium 4.1 mmol/L (3.5-5.1); Sodium Level 141 mmol/L (136-145)
[2018-05-03] MEDS: Ciprofloxacin 500 MG Tablet PO ×2 (08:18→17:05)
[2018-05-03] MEDS: Lithium Carbonate 300mg Capsule 300 MG PO ×2 (08:18→17:05)
[2018-05-03] MEDS: Venlafaxine XR 150 MG Capsule PO (08:18)
[2018-05-03] MEDS: Multivitamins,Ther W-Minerals Tablet 1 TABLET PO (08:18)
[2018-05-03] MEDS: Aspirin 81 MG TAB.CHEW PO (08:18)
[2018-05-03] MEDS: Venlafaxine XR 75 MG Capsule PO (08:18)
[2018-05-03] MEDS: Senna/Docusate Sodium 1 Tablet PO (08:18)
[2018-05-03] MEDS: Polyethylene Glycol 3350 17 GM PACKET PO (08:18)
[2018-05-03 08:19] VITALS: PULSE 76
[2018-05-03] MEDS: Metoprolol Tartrate 50 MG Tablet PO ×2 (08:19→17:05)
--- NOTE | 2018-05-03 09:30 | NURSING ---
Dr. Guido reviewed labs, N.O. to check H&H on 05/05, pt updated
[2018-05-03] MEDS: Tuberculin,Purif.prot.deriv. 50 TU/ML Vial 5 ML ID (12:34)
[2018-05-03 15:31] VITALS: BP 128/53; PULSE 67; RESP 16; TEMP 36.8; O2SAT 94
[2018-05-03 17:05] VITALS: BP 128/53; PULSE 67
[2018-05-03] MEDS: traZODone 50 MG Tablet PO (20:57)
[2018-05-03] MEDS: Mirtazapine 15 MG Tablet PO (20:57)
[2018-05-03] MEDS: Atorvastatin Calcium 20 MG Tablet PO (20:57)
[2018-05-04] MEDS: Senna/Docusate Sodium 1 Tablet PO ×2 (08:30→17:43)
[2018-05-04] MEDS: Multivitamins,Ther W-Minerals Tablet 1 TABLET PO (08:30)
[2018-05-04] MEDS: Bisacodyl 5 MG Tablet 10 MG PO (08:30)
[2018-05-04 08:31] VITALS: BP 148/56; PULSE 68
[2018-05-04] MEDS: Aspirin 81 MG TAB.CHEW PO (08:31)
[2018-05-04] MEDS: Metoprolol Tartrate 50 MG Tablet PO ×2 (08:31→17:43)
[2018-05-04] MEDS: Ciprofloxacin 500 MG Tablet PO ×2 (08:31→17:43)
[2018-05-04] MEDS: Venlafaxine XR 75 MG Capsule PO (08:31)
[2018-05-04] MEDS: Lithium Carbonate 300mg Capsule 300 MG PO ×2 (08:32→17:43)
[2018-05-04] MEDS: Venlafaxine XR 150 MG Capsule PO (08:32)
[2018-05-04 15:56] VITALS: BP 136/68; PULSE 62; RESP 18; TEMP 36.4; O2SAT 96
[2018-05-04 17:43] VITALS: BP 136/68; PULSE 62
[2018-05-04] MEDS: Mirtazapine 15 MG Tablet PO (20:48)
[2018-05-04] MEDS: Atorvastatin Calcium 20 MG Tablet PO (20:48)
[2018-05-04] MEDS: traZODone 50 MG Tablet PO (20:48)
[2018-05-05 05:07] VITALS: PULSE 61; O2SAT 94
[2018-05-05 06:09] LABS: Hematocrit 39.2 % (37-47); Hemoglobin 12.2 g/dl (12.0-15.0)
[2018-05-05 06:21] LABS: International Normalized Ratio 1.9; Prothrombin Time (Protime)PT. 21.8 SECONDS (11.7-14.9)
[2018-05-05] MEDS: Aspirin 81 MG TAB.CHEW PO (07:45)
[2018-05-05] MEDS: Ciprofloxacin 500 MG Tablet PO ×2 (07:45→16:39)
[2018-05-05] MEDS: Venlafaxine XR 75 MG Capsule PO (07:45)
[2018-05-05] MEDS: Venlafaxine XR 150 MG Capsule PO (07:45)
[2018-05-05 07:46] VITALS: PULSE 60
[2018-05-05] MEDS: Metoprolol Tartrate 50 MG Tablet PO ×2 (07:46→16:39)
[2018-05-05] MEDS: Lithium Carbonate 300mg Capsule 300 MG PO ×2 (07:46→16:39)
[2018-05-05] MEDS: Multivitamins,Ther W-Minerals Tablet 1 TABLET PO (07:46)
[2018-05-05] MEDS: Senna/Docusate Sodium 1 Tablet PO ×2 (07:47→16:39)
[2018-05-05 15:26] VITALS: BP 136/57; PULSE 64; RESP 20; TEMP 36.8; O2SAT 95
[2018-05-05 16:39] VITALS: PULSE 64
[2018-05-05] MEDS: traZODone 50 MG Tablet PO (21:08)
[2018-05-05] MEDS: Atorvastatin Calcium 20 MG Tablet PO (21:08)
[2018-05-05] MEDS: Mirtazapine 15 MG Tablet PO (21:08)
[2018-05-06] MEDS: Lithium Carbonate 300mg Capsule 300 MG PO ×2 (08:13→17:28)
[2018-05-06] MEDS: Venlafaxine XR 75 MG Capsule PO (08:13)
[2018-05-06] MEDS: Venlafaxine XR 150 MG Capsule PO (08:13)
[2018-05-06 08:14] VITALS: BP 147/54; PULSE 67
[2018-05-06] MEDS: Multivitamins,Ther W-Minerals Tablet 1 TABLET PO (08:14)
[2018-05-06] MEDS: Senna/Docusate Sodium 1 Tablet PO ×2 (08:14→17:28)
[2018-05-06] MEDS: Metoprolol Tartrate 50 MG Tablet PO ×2 (08:14→17:28)
[2018-05-06] MEDS: Aspirin 81 MG TAB.CHEW PO (09:35)
[2018-05-06 15:31] VITALS: BP 114/56; PULSE 66; RESP 18; TEMP 36.9; O2SAT 93
[2018-05-06 17:28] VITALS: BP 114/56; PULSE 66
[2018-05-06] MEDS: Atorvastatin Calcium 20 MG Tablet PO (21:10)
[2018-05-06] MEDS: Mirtazapine 15 MG Tablet PO (21:11)
[2018-05-06] MEDS: traZODone 50 MG Tablet PO (21:11)
[2018-05-07 05:55] VITALS: O2SAT 98
[2018-05-07 08:06] VITALS: PULSE 66
[2018-05-07] MEDS: Lithium Carbonate 300mg Capsule 300 MG PO ×2 (08:06→17:11)
[2018-05-07] MEDS: Venlafaxine XR 75 MG Capsule PO (08:06)
[2018-05-07] MEDS: Senna/Docusate Sodium 1 Tablet PO ×2 (08:06→17:11)
[2018-05-07] MEDS: Metoprolol Tartrate 50 MG Tablet PO ×2 (08:06→17:10)
[2018-05-07] MEDS: Venlafaxine XR 150 MG Capsule PO (08:07)
[2018-05-07] MEDS: Multivitamins,Ther W-Minerals Tablet 1 TABLET PO (08:07)
[2018-05-07] MEDS: Aspirin 81 MG TAB.CHEW PO (08:07)
--- NOTE | 2018-05-07 11:08 | CASEMGMT ---
Brief interview for mental status (BIMS) and resident mood interview (PHQ-9) completed on this day. BIMS score 09/11. PHQ-9 score 01/21
--- NOTE | 2018-05-07 15:28 | CASEMGMT ---
Social Work Spoke with resident in room about possible community services. Resident is agreeable to this rn social services making referral to the [facility] services [facility]. Support given. Telephone call to Region [facility]. Voicemail left for intake. Will continue to follow. Ange BRASHER, PIPELINE INSPECTOR
[2018-05-07 15:47] VITALS: BP 133/65; PULSE 63; RESP 18; TEMP 36.4; O2SAT 96
[2018-05-07 17:10] VITALS: BP 133/65; PULSE 63
[2018-05-07] MEDS: traZODone 50 MG Tablet PO (20:28)
[2018-05-07] MEDS: Atorvastatin Calcium 20 MG Tablet PO (20:28)
[2018-05-07] MEDS: Mirtazapine 15 MG Tablet PO (20:28)
[2018-05-08 05:48] LABS: International Normalized Ratio 2.1
--- NOTE | 2018-05-08 09:20 | MDS.RN ---
Information for the mds was obtained from review of the clinical record, interview of resident, staff, and direct observation of resident's care.
[2018-05-08] MEDS: Multivitamins,Ther W-Minerals Tablet 1 TABLET PO (09:57)
[2018-05-08] MEDS: Lithium Carbonate 300mg Capsule 300 MG PO ×2 (09:57→16:55)
[2018-05-08] MEDS: Aspirin 81 MG TAB.CHEW PO (09:57)
[2018-05-08] MEDS: Venlafaxine XR 75 MG Capsule PO (09:57)
[2018-05-08] MEDS: Venlafaxine XR 150 MG Capsule PO (09:57)
[2018-05-08] MEDS: Senna/Docusate Sodium 1 Tablet PO (09:57)
[2018-05-08 09:58] VITALS: PULSE 70
[2018-05-08] MEDS: Metoprolol Tartrate 50 MG Tablet PO ×2 (09:58→16:55)
--- NOTE | 2018-05-08 14:01 | NURSING ---
Dr. Guido reviewed AM INR, N.N.O.
--- NOTE | 2018-05-08 15:23 | MDS.RN ---
Pain interview for BLAISE 05/09/18 completed.
[2018-05-08 16:00] VITALS: BP 136/61; PULSE 60; RESP 18; TEMP 36.4; O2SAT 96
[2018-05-08 16:55] VITALS: PULSE 78
[2018-05-08] MEDS: Mirtazapine 15 MG Tablet PO (20:02)
[2018-05-08] MEDS: traZODone 50 MG Tablet PO (20:02)
[2018-05-08] MEDS: Atorvastatin Calcium 20 MG Tablet PO (20:02)
[2018-05-09 08:32] VITALS: PULSE 79
[2018-05-09] MEDS: Multivitamins,Ther W-Minerals Tablet 1 TABLET PO (08:32)
[2018-05-09] MEDS: Lithium Carbonate 300mg Capsule 300 MG PO ×2 (08:32→17:00)
[2018-05-09] MEDS: Senna/Docusate Sodium 1 Tablet PO ×2 (08:32→17:01)
[2018-05-09] MEDS: Venlafaxine XR 75 MG Capsule PO (08:32)
[2018-05-09] MEDS: Metoprolol Tartrate 50 MG Tablet PO ×2 (08:32→17:00)
[2018-05-09] MEDS: Venlafaxine XR 150 MG Capsule PO (08:32)
[2018-05-09] MEDS: Aspirin 81 MG TAB.CHEW PO (08:32)
[2018-05-09 16:00] VITALS: BP 130/83; PULSE 60; RESP 18; TEMP 36.8; O2SAT 93
[2018-05-09 17:00] VITALS: PULSE 60
[2018-05-09] MEDS: Atorvastatin Calcium 20 MG Tablet PO (21:53)
[2018-05-09] MEDS: Mirtazapine 15 MG Tablet PO (21:53)
[2018-05-09] MEDS: traZODone 50 MG Tablet PO (21:53)
[2018-05-10 07:32] LABS: Absolute Lymphocyte Count 1.34 X10^3/ul (0.83-4.51); Absolute Neutrophil Count 4.6 X10^3/uL (2.0-7.7); Basophil# 0.03 X10^3/uL; Basophil% 0.4 % (0-1); Eosinophil# 0.36 X10^3/uL; Eosinophils% 5.1 % (0-5); Hematocrit 39.2 % (37-47); Hemoglobin 11.9 g/dl (12.0-15.0); Lymphocyte # 1.34 X10^3/ul (4.0); Lymphocyte % 19.1 % (19-41); Mean Corp Hgb Conc 30.4 g/gl (32-36); Mean Corpuscular Hgb 29.1 pg (27.0-32.0); Mean Corpuscular Volume 95.8 fL (81-99); Mean Platelet Vol. 10.5 fl (6.2-12.0); Monocyte# 0.68 X10^3/uL; Monocyte% 9.7 % (0-10); Neutrophil # 4.58 X10^3/uL (2.7-7.7); Neutrophil % 65.6 % (47-70); Platelet Count 266 K/mm3 (150-450); RBC Distribution Width CV 14.4 % (11.6-14.6); RBC Distribution Width SD 50.6 fl (35.1-43.9); Red Blood Count 4.09 M/mm3 (4.2-5.4)
[2018-05-10 07:35] LABS: Anion Gap 7 (5-15); BUN 19 mg/dL (7-18); BUN/Creat Ratio 21.1 RATIO (10-20); Calcium,Total 9.2 mg/dL (8.5-10.1); Chloride 108 mmol/L (98-107); EST Glomerular Filtration Rate 64 mL/min (>60); Est Glom Filt Rate - Afr Amer 77 mL/min (>60); Estimated Creatinine Clearance 34.02 ml/min; Glucose 107 mg/dL (74-106); Potassium 4.6 mmol/L (3.5-5.1); Sodium Level 145 mmol/L (136-145)
[2018-05-10 07:52] LABS: POSITIVE COUNT NO; POSITIVE DIFFERENTIAL NO; POSITIVE MORPHOLOGY NO
[2018-05-10] MEDS: Venlafaxine XR 75 MG Capsule PO (08:07)
[2018-05-10] MEDS: Lithium Carbonate 300mg Capsule 300 MG PO ×2 (08:07→16:43)
[2018-05-10] MEDS: Venlafaxine XR 150 MG Capsule PO (08:07)
[2018-05-10] MEDS: Senna/Docusate Sodium 1 Tablet PO (08:07)
[2018-05-10] MEDS: Multivitamins,Ther W-Minerals Tablet 1 TABLET PO (08:07)
[2018-05-10] MEDS: Aspirin 81 MG TAB.CHEW PO (08:07)
[2018-05-10 08:08] VITALS: PULSE 80
[2018-05-10] MEDS: Metoprolol Tartrate 50 MG Tablet PO ×2 (08:08→16:44)
[2018-05-10 15:57] VITALS: BP 125/61; PULSE 60; RESP 18; TEMP 36.8; O2SAT 95
[2018-05-10 16:44] VITALS: BP 119/53; PULSE 64
[2018-05-10] MEDS: Atorvastatin Calcium 20 MG Tablet PO (20:09)
[2018-05-10] MEDS: Mirtazapine 15 MG Tablet PO (20:09)
[2018-05-10] MEDS: traZODone 50 MG Tablet PO (20:09)
[2018-05-11 08:11] VITALS: PULSE 62
[2018-05-11] MEDS: Senna/Docusate Sodium 1 Tablet PO ×2 (08:11→16:43)
[2018-05-11] MEDS: Venlafaxine XR 75 MG Capsule PO (08:11)
[2018-05-11] MEDS: Venlafaxine XR 150 MG Capsule PO (08:11)
[2018-05-11] MEDS: Lithium Carbonate 300mg Capsule 300 MG PO ×2 (08:11→16:42)
[2018-05-11] MEDS: Metoprolol Tartrate 50 MG Tablet PO ×2 (08:11→16:43)
[2018-05-11] MEDS: Aspirin 81 MG TAB.CHEW PO (08:11)
[2018-05-11] MEDS: Multivitamins,Ther W-Minerals Tablet 1 TABLET PO (08:11)
[2018-05-11] MEDS: oxyCODONE 5 MG Tablet PO ×2 (12:14→19:51)
[2018-05-11 15:24] VITALS: BP 146/64; PULSE 61; RESP 18; TEMP 36.6; O2SAT 92
[2018-05-11 16:43] VITALS: BP 146/64; PULSE 61
[2018-05-11] MEDS: traZODone 50 MG Tablet PO (19:46)
[2018-05-11] MEDS: Mirtazapine 15 MG Tablet PO (19:47)
[2018-05-11] MEDS: Atorvastatin Calcium 20 MG Tablet PO (19:47)
[2018-05-12 06:12] LABS: International Normalized Ratio 2.3; Prothrombin Time (Protime)PT. 25.1 SECONDS (11.7-14.9)
[2018-05-12 08:43] VITALS: PULSE 74
[2018-05-12] MEDS: Multivitamins,Ther W-Minerals Tablet 1 TABLET PO (08:43)
[2018-05-12] MEDS: Venlafaxine XR 150 MG Capsule PO (08:43)
[2018-05-12] MEDS: Senna/Docusate Sodium 1 Tablet PO ×2 (08:43→16:39)
[2018-05-12] MEDS: Metoprolol Tartrate 50 MG Tablet PO ×2 (08:43→16:38)
[2018-05-12] MEDS: Aspirin 81 MG TAB.CHEW PO (08:43)
[2018-05-12] MEDS: Venlafaxine XR 75 MG Capsule PO (08:43)
[2018-05-12] MEDS: Lithium Carbonate 300mg Capsule 300 MG PO ×2 (08:43→16:39)
[2018-05-12] MEDS: oxyCODONE 5 MG Tablet PO (09:55)
--- NOTE | 2018-05-12 11:53 | CASEMGMT ---
Social Work Have not received a return phone call from the [facility] for referral. Contact [facility] and left another voicemail. Resident brother is also going to call. Will continue to follow. Ange BRASHER, [employer]KE [employer] MASON
[2018-05-12 16:00] VITALS: BP 147/75; PULSE 63; RESP 20; TEMP 36.9; O2SAT 92
[2018-05-12 16:38] VITALS: BP 147/75; PULSE 63
[2018-05-12] MEDS: Atorvastatin Calcium 20 MG Tablet PO (21:31)
[2018-05-12] MEDS: traZODone 50 MG Tablet PO (21:31)
[2018-05-12] MEDS: Mirtazapine 15 MG Tablet PO (21:31)
[2018-05-13 07:40] VITALS: PULSE 66
[2018-05-13] MEDS: Senna/Docusate Sodium 1 Tablet PO ×2 (07:40→17:38)
[2018-05-13] MEDS: Venlafaxine XR 75 MG Capsule PO (07:40)
[2018-05-13] MEDS: Venlafaxine XR 150 MG Capsule PO (07:40)
[2018-05-13] MEDS: Multivitamins,Ther W-Minerals Tablet 1 TABLET PO (07:40)
[2018-05-13] MEDS: Aspirin 81 MG TAB.CHEW PO (07:40)
[2018-05-13] MEDS: Metoprolol Tartrate 50 MG Tablet PO ×2 (07:40→17:37)
[2018-05-13] MEDS: Lithium Carbonate 300mg Capsule 300 MG PO ×2 (07:40→17:37)
--- NOTE | 2018-05-13 11:05 | CASEMGMT ---
Social Work Telephone call received from Stella Galarza: [phone] at [facility]. Stella has been assigned to resident case. This psychiatric social worker supervisor providing Stella with intake information. Stella to contact resident or resident brother to set up a meeting time probably in the next few weeks. Spoke with resident in room and provided resident with Stella's contact information. Will continue to follow. Ange BRASHER, GAMBLING MONITOR
--- NOTE | 2018-05-13 11:48 | CASEMGMT ---
Brief interview for mental status (BIMS) and resident mood interview (PHQ-9) completed on this day. BIMS score 09/11. PHQ-9 score 01/21
--- NOTE | 2018-05-13 11:48 | CASEMGMT ---
Social Work Spoke with resident in room. This hospice social worker communicating that discharge date has been set for 05/17/18. Resident agreeable to discharge date and plans to discharge home alone at time of discharge. No further therapy is being recommended at this time. Resident brother does plan to check in on resident on a regular basis. Resident brother to provide transportation home for resident at time of discharge. Resident reporting to have all needed durable medical equipment already established within the home. Resident requesting for this hospice social worker to contact resident in regards to discharge plan. Telephone call to resident brotheraMndo. Voicemail left for Mando. Support given. Proposed discharge date: 05/17/18 PLAN: Discharge home alone with pending PASSPORT services. Ange BRASHER, DIRECTOR INTELLIGENCE ANALYSIS PROGRAMS
[2018-05-13 16:00] VITALS: BP 144/55; PULSE 58; RESP 18; TEMP 35.8; O2SAT 98
[2018-05-13 17:37] VITALS: PULSE 60
[2018-05-13] MEDS: Atorvastatin Calcium 20 MG Tablet PO (21:18)
[2018-05-13] MEDS: traZODone 50 MG Tablet PO (21:18)
[2018-05-13] MEDS: Mirtazapine 15 MG Tablet PO (21:18)
--- NOTE | 2018-05-13 21:47 | PCM.DC ---
- Discharge Diagnoses Current Active Problems: Current Active and Chronic Problems Weakness (Acute) Pulmonary embolism (Acute) E. coli UTI (Acute) Carotid stenosis (Chronic) Osteoarthritis (Chronic) Bipolar disorder (Chronic) Insomnia (Chronic) Decreased appetite (Chronic) You will use the following diet at home:: No restrictions, Regular Your food should be the consistency of: Regular Your liquids should be the consistency of: Regular/Thin Discharge Activity: Return to Normal Activity, May Shower, Use Walker Weight Bearing Status: Weight bearing as tolerated Call your doctor if you observe: Fever of 101 or Higher, Inability to urinate, Inability to have a bowel movement, Shortness of breath, Chest pain, Uncontrolled pain Allergies/Adverse Reactions: Allergies No Known Allergies Allergy (Verified 04/22/18 14:19) Medications to take at Discharge Albuterol Aerosols [Ventolin Aerosols] 2.5 mg INHALATION Q6HWA.RT PRN 12/30/13 Aspirin [Aspirin, Baby] 81 mg PO DAILY@0800 12/30/13 [place] Carbonate [Lithobid] 300 mg PO BID 12/30/13 Metoprolol Tartrate [Lopressor (beta carl)] 50 mg PO BID 12/30/13 Multivitamins,Ther W-Minerals [Multivitamin With Minerals] 1 tablet PO DAILY 12/30/13 Simvastatin [Zocor] 40 mg PO QHS 12/30/13 Venlafaxine XR [Effexor Xr] 75 mg PO DAILY 12/30/13 Venlafaxine XR [Effexor Xr] 150 mg PO DAILY 12/30/13 Warfarin [Coumadin] 4 mg PO DAILY 12/30/13 traZODone [Desyrel] 50 mg PO QHS 12/30/13 Cholecalciferol (Vitamin D3) [Vitamin D3] 5,000 unit PO DAILY 04/22/18 Mirtazapine 30 mg PO QHS 04/22/18 Oxycodone HCl/Acetaminophen [Percocet 5-325] 1 tab PO Q6H PRN #4 tab 04/25/18 Acetaminophen [Tylenol] 1,000 mg PO Q8H PRN PRN tablet 05/13/18 Orders to be completed after discharge: Prothrombin Time w/INR Time Frame: 2 Days, Location: Laboratory Primary Care Physician: Clara Suazo DO [Primary Care Provider] - Please follow up with your Primary Care Physician in: 1 week. Test Results: Test results from this visit will be discussed in further detail at your follow-up appointment, if applicable. Please Follow Up With: DR. NAEEM DE LA ROSA When: 2 weeks. Proposed Discharge Date: 05/17/18
--- NOTE | 2018-05-13 21:59 | DCINST_ITS ---
- Discharge Diagnoses Current Active Problems: Current Active and Chronic Problems Weakness (Acute) Pulmonary embolism (Acute) E. coli UTI (Acute) Carotid stenosis (Chronic) Osteoarthritis (Chronic) Bipolar disorder (Chronic) Insomnia (Chronic) Decreased appetite (Chronic) You will use the following diet at home:: No restrictions, Regular Your food should be the consistency of: Regular Your liquids should be the consistency of: Regular/Thin Discharge Activity: Return to Normal Activity, May Shower, Use Walker Weight Bearing Status: Weight bearing as tolerated Call your doctor if you observe: Fever of 101 or Higher, Inability to urinate, Inability to have a bowel movement, Shortness of breath, Chest pain, Uncontrolled pain Allergies/Adverse Reactions: Allergies No Known Allergies Allergy (Verified 04/22/18 14:19) Medications to take at Discharge Albuterol Aerosols [Ventolin Aerosols] 2.5 mg INHALATION Q6HWA.RT PRN 12/30/13 Aspirin [Aspirin, Baby] 81 mg PO DAILY@0800 12/30/13 [place] Carbonate [Lithobid] 300 mg PO BID 12/30/13 Metoprolol Tartrate [Lopressor (beta carl)] 50 mg PO BID 12/30/13 Multivitamins,Ther W-Minerals [Multivitamin With Minerals] 1 tablet PO DAILY 03/10 Simvastatin [Zocor] 40 mg PO QHS 12/30/13 Venlafaxine XR [Effexor Xr] 75 mg PO DAILY 12/30/13 Venlafaxine XR [Effexor Xr] 150 mg PO DAILY 12/30/13 Warfarin [Coumadin] 4 mg PO DAILY 12/30/13 traZODone [Desyrel] 50 mg PO QHS 12/30/13 Cholecalciferol (Vitamin D3) [Vitamin D3] 5,000 unit PO DAILY 04/22/18 Mirtazapine 30 mg PO QHS 04/22/18 Oxycodone HCl/Acetaminophen [Percocet 5-325] 1 tab PO Q6H PRN #4 tab 04/25/18 Acetaminophen [Tylenol] 1,000 mg PO Q8H PRN PRN tablet 05/13/18 Orders to be completed after discharge: Prothrombin Time w/INR Time Frame: 2 Days, Location: Laboratory Primary Care Physician: Clara Suazo DO [Primary Care Provider] - Please follow up with your Primary Care Physician in: 1 week. Test Results: Test results from this visit will be discussed in further detail at your follow- up appointment, if applicable. Please Follow Up With: DR. NAEEM DE LA ROSA When: 2 weeks. Proposed Discharge Date: 05/17/18
--- NOTE | 2018-05-13 22:01 | PCM.DC.SUM ---
Discharge Date and Diagnosis - Problem List Patient Problems: Active and Suspected Problems Weakness (Acute) Pulmonary embolism (Acute) E. coli UTI (Acute) Date of Admission: 04/25/18 Date of Discharge: 05/17/18 - Primary Discharge Diagnosis Active and Suspected Problems Weakness (Acute) Pulmonary embolism (Acute) E. coli UTI (Acute) - Secondary Discharge Diagnosis Chronic Problems Carotid stenosis (Chronic) Osteoarthritis (Chronic) Bipolar disorder (Chronic) Insomnia (Chronic) Decreased appetite (Chronic) VTE (venous thromboembolism) (Chronic) Osteoarthritis (Chronic) Urinary incontinence in female (Chronic) HTN (hypertension) (Chronic) Bipolar disorder (Chronic) HLD (hyperlipidemia) (Chronic) DM II (diabetes mellitus, type II), controlled (Chronic) Hospital Course and Treatment Imaging Results: 04/29/18 11:00 Diet: Regular Diet Type of Dietary Supplement:: NONE Is pt able to select menu?: Yes Labs (Last 48 Hours) 05/12/18 05:10 PT 25.1 H INR 2.3 Operations: None Procedures: None Summary of Care Provided: The patient is a 83 year old Female with below past medical history hospitalized for weakness secondary to pulmonary embolism, complicated by E. Coli UTI, admitted to TCU with debility, here for rehabilitation, strengthening, prior to discharge home alone. Discharge home alone with pending PASSPORT services. Discharge Diet: No Restrictions Discharge Activity: Return to Normal Activity, May Shower, Use Walker Weight Bearing Status: Weight bearing as tolerated Call your doctor if you observe: Fever of 101 or Higher, Inability to urinate, Inability to have a bowel movement, Shortness of breath, Chest pain, Uncontrolled pain Home Medications: Medications to take at Discharge Albuterol Aerosols [Ventolin Aerosols] 2.5 mg INHALATION Q6HWA.RT PRN 12/30/13 Aspirin [Aspirin, Baby] 81 mg PO DAILY@0800 12/30/13 [place] Carbonate [Lithobid] 300 mg PO BID 12/30/13 Metoprolol Tartrate [Lopressor (beta carl)] 50 mg PO BID 12/30/13 Multivitamins,Ther W-Minerals [Multivitamin With Minerals] 1 tablet PO DAILY 12/30/13 Simvastatin [Zocor] 40 mg PO QHS 12/30/13 Venlafaxine XR [Effexor Xr] 75 mg PO DAILY 12/30/13 Venlafaxine XR [Effexor Xr] 150 mg PO DAILY 12/30/13 Warfarin [Coumadin] 4 mg PO DAILY 12/30/13 traZODone [Desyrel] 50 mg PO QHS 12/30/13 Cholecalciferol (Vitamin D3) [Vitamin D3] 5,000 unit PO DAILY 04/22/18 Mirtazapine 30 mg PO QHS 04/22/18 Oxycodone HCl/Acetaminophen [Percocet 5-325] 1 tab PO Q6H PRN #4 tab 04/25/18 Acetaminophen [Tylenol] 1,000 mg PO Q8H PRN PRN tablet 05/13/18 Other Amb Orders: Prothrombin Time w/INR Time Frame: 2 Days, Location: Laboratory Primary Care Physician: Clara Suazo DO [Primary Care Provider] - Please follow up with your Primary Care Physician in: 1 week. Please Follow Up With: DR. NAEEM DE LA ROSA When: 2 weeks. Disposition: Home Minutes spent on discharge:: 30 Patient Condition:: Stable Medical Necessity - Tobacco Use Smoking Status: Never smoker Tobacco Use: Non-smoker Meaningful Use Info Meaningful Use Diagnoses (Choose all that apply): None applicable
[2018-05-14] MEDS: Venlafaxine XR 150 MG Capsule PO (08:36)
[2018-05-14] MEDS: Multivitamins,Ther W-Minerals Tablet 1 TABLET PO (08:36)
[2018-05-14] MEDS: Lithium Carbonate 300mg Capsule 300 MG PO ×2 (08:36→17:12)
[2018-05-14] MEDS: Senna/Docusate Sodium 1 Tablet PO ×2 (08:36→17:12)
[2018-05-14 08:37] VITALS: BP 132/54; PULSE 63
[2018-05-14] MEDS: Metoprolol Tartrate 50 MG Tablet PO ×2 (08:37→17:12)
[2018-05-14] MEDS: Venlafaxine XR 75 MG Capsule PO (08:41)
[2018-05-14] MEDS: Aspirin 81 MG TAB.CHEW PO (08:41)
--- NOTE | 2018-05-14 10:30 | NURSING ---
PT TAKEN TO APPT AT DR. DE LA ROSA'S OFFICE PER WC.
--- NOTE | 2018-05-14 12:32 | NURSING ---
Pt returned from appointment with GREGORIO Durham.
[2018-05-14 16:00] VITALS: BP 124/75; PULSE 62; RESP 18; TEMP 36.1; O2SAT 95
[2018-05-14 17:12] VITALS: BP 124/75; PULSE 62
--- NOTE | 2018-05-14 18:15 | CASEMGMT ---
Social Work Resident now reporting to need a walker at home. Spoke with resident in room. Resident voicing to have thought to have a walker at home but to not have one and to need one now. Resident does not have a preference of [employer], happn to be utilized. Resident plans to discharge home alone with pending PASSPORT services. Support given. Telephone call to Nicole Soto. This delinquency prevention social worker making referral for walker. Nicole to have walker delivered to resident room prior to resident discharge. Order faxed. Proposed discharge date: 05/17/18 PLAN: Discharge home alone with pending PASSPORT approval. Ange BRASHER, AUTOMATION ENGINEER
[2018-05-14] MEDS: Mirtazapine 15 MG Tablet PO (20:25)
[2018-05-14] MEDS: Atorvastatin Calcium 20 MG Tablet PO (20:25)
[2018-05-14] MEDS: traZODone 50 MG Tablet PO (20:25)
[2018-05-15 06:09] LABS: International Normalized Ratio 2.4
[2018-05-15] MEDS: Senna/Docusate Sodium 1 Tablet PO (08:11)
[2018-05-15 08:12] VITALS: BP 131/68; PULSE 67
[2018-05-15] MEDS: Metoprolol Tartrate 50 MG Tablet PO ×2 (08:12→16:58)
[2018-05-15] MEDS: Aspirin 81 MG TAB.CHEW PO (08:12)
[2018-05-15] MEDS: Venlafaxine XR 150 MG Capsule PO (08:12)
[2018-05-15] MEDS: Lithium Carbonate 300mg Capsule 300 MG PO ×2 (08:12→16:57)
[2018-05-15] MEDS: Multivitamins,Ther W-Minerals Tablet 1 TABLET PO (08:13)
[2018-05-15] MEDS: Venlafaxine XR 75 MG Capsule PO (08:13)
--- NOTE | 2018-05-15 15:02 | MDS.RN ---
Information for the mds was obtained from review of the clinical record, interview of resident, staff, and direct observation of resident's care.
[2018-05-15 16:00] VITALS: BP 134/83; PULSE 63; RESP 16; TEMP 36.3; O2SAT 94
[2018-05-15 16:58] VITALS: BP 134/83; PULSE 63
--- NOTE | 2018-05-15 18:13 | NURSING ---
Pt having diarrhea intermittently throughout day. Dr. Guido made aware. NO for KUB.
--- NOTE | 2018-05-15 18:20 | RAD_ITS ---
STUDY: X-RAY - ABDOMEN/PELVIS REASON FOR EXAM: Female, 83 years old. Diarrhea TECHNIQUE: Two AP supine views of the abdomen and pelvis. COMPARISON: None. FINDINGS: Normal visualized lung bases. There is an unremarkable bowel gas pattern. There is no demonstrated free abdominal air. The visualized liver, spleen and kidneys are grossly normal in size and morphology. Normal soft tissue structures. There are degenerative changes of the visualized thoracolumbar spine. There is a mild lumbar levoscoliosis. RAD/Abdomen Single View IMPRESSION: Degenerative changes of the visualized thoracolumbar spine. Mild lumbar levoscoliosis. There is no evidence of ileus, obstruction, or free intraperitoneal air. Electronically Signed: Otf Banda MD at 18:47 EDT , Service support ,
[2018-05-15] MEDS: Atorvastatin Calcium 20 MG Tablet PO (19:57)
[2018-05-15] MEDS: traZODone 50 MG Tablet PO (19:57)
[2018-05-15] MEDS: Mirtazapine 15 MG Tablet PO (19:58)
[2018-05-16 06:16] VITALS: PULSE 62; O2SAT 97
[2018-05-16] MEDS: Magnesium Citrate 300 ML PO (06:23)
[2018-05-16 08:32] VITALS: BP 115/67; PULSE 67
[2018-05-16] MEDS: Aspirin 81 MG TAB.CHEW PO (08:32)
[2018-05-16] MEDS: Metoprolol Tartrate 50 MG Tablet PO ×2 (08:32→17:17)
[2018-05-16] MEDS: Venlafaxine XR 150 MG Capsule PO (08:33)
[2018-05-16] MEDS: Lithium Carbonate 300mg Capsule 300 MG PO ×2 (08:33→17:17)
[2018-05-16] MEDS: Venlafaxine XR 75 MG Capsule PO (08:33)
[2018-05-16] MEDS: Multivitamins,Ther W-Minerals Tablet 1 TABLET PO (08:34)
[2018-05-16 16:00] VITALS: BP 148/66; PULSE 61; RESP 18; TEMP 37.1; O2SAT 93
[2018-05-16 17:17] VITALS: PULSE 60
[2018-05-16] MEDS: traZODone 50 MG Tablet PO (21:47)
[2018-05-16] MEDS: Mirtazapine 15 MG Tablet PO (21:47)
[2018-05-16] MEDS: Atorvastatin Calcium 20 MG Tablet PO (21:47)
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
[2018-05-17 08:39] VITALS: PULSE 68
[2018-05-17] MEDS: Multivitamins,Ther W-Minerals Tablet 1 TABLET PO (08:39)
[2018-05-17] MEDS: Metoprolol Tartrate 50 MG Tablet PO (08:39)
[2018-05-17] MEDS: Venlafaxine XR 75 MG Capsule PO (08:39)
[2018-05-17] MEDS: Venlafaxine XR 150 MG Capsule PO (08:39)
[2018-05-17] MEDS: Lithium Carbonate 300mg Capsule 300 MG PO (08:39)
[2018-05-17] MEDS: Aspirin 81 MG TAB.CHEW PO (08:39)
[2018-05-17] MEDS: Loperamide 2 MG Capsule PO (08:39)
[2018-05-17 10:48] VITALS: BP 140/78; PULSE 68; RESP 18; TEMP 36.6
== END 2018-05-17 10:50 | disposition home or self-care (01) | DRG 947 ==
PROVIDERS: Admitting Provider Family Medicine Geriatric Medicine; Family Provider Internal Medicine; PCP Internal Medicine; Visit Provider Family Medicine Geriatric Medicine
DX: R53.81 Other malaise (principal); I26.99 Other pulmonary embolism without acute cor pulmonale; N39.0 Urinary tract infection, site not specified; B96.20 Unspecified Escherichia coli [E. coli] as the cause of diseases classified elsewhere; F31.9 Bipolar disorder, unspecified; I10 Essential (primary) hypertension; E78.5 Hyperlipidemia, unspecified; M19.90 Unspecified osteoarthritis, unspecified site; E11.9 Type 2 diabetes mellitus without complications; R32 Unspecified urinary incontinence; G47.00 Insomnia, unspecified
CPT/HCPCS: 36415; 74018; 80048; 80178; 85014; 85018; 85025; 85610; 97110; 97116; 97162; 97166; 97530; 97535; 97802

== ENCOUNTER → 2019-12-07 10:34 | Outpatient (CLI) | payer MEDICARE, SELFPAY ==
--- NOTE | 2019-12-07 10:39 | CDU_ITS ---
Reason For Study: Carotid stenosis Rt. Velocities/BP Lt. Velocities/BP Prox CCA 117.4/15.2 cm/sec. Prox CCA 108.3/13.3 cm/sec. Mid CCA 87.6/16.3 cm/sec. Mid CCA 115.6/17 cm/sec. Dist CCA 101.1/18.8 cm/sec. Dist CCA 93.7/13.3 cm/sec. Prox ICA 114.8/18.2 cm/sec. Prox ICA 270.9/25 cm/sec. Mid ICA 125.7/20.4 cm/sec. Mid ICA 110.4/16 cm/sec. Dist ICA 127.8/21.5 cm/sec. Dist ICA 70.9/13.8 cm/sec. Rt. ICA/CCA = 1.26. Lt. ICA/CCA = 2.5. Prox ECA 200.2/11.1 cm/sec. Prox ECA 158.7/7.2 cm/sec. Rt. Vert. 70/11.5 cm/sec. Lt. Vert. 92.9/13.8 cm/sec. Right Extracranial There is homogeneous, smooth atherosclerotic plaque noted in the right common carotid artery. There is heterogeneous, smooth atherosclerotic plaque noted in the right internal carotid artery. There is homogeneous, smooth atherosclerotic plaque noted in the right external carotid artery. Antegrade flow is noted in the right vertebral artery. Left Extracranial There is heterogeneous, smooth atherosclerotic plaque noted in the left common carotid artery. There is heterogeneous, irregular atherosclerotic plaque noted in the left internal carotid artery. There is heterogeneous, irregular atherosclerotic plaque noted in the left external carotid artery. Antegrade flow is noted in the left vertebral artery. Procedure Carotid Duplex 05020. Exam performed in department. Interpretation Summary Moderate (50-69%) stenosis right extracranial internal carotid. Moderate (50-69%) stenosis left extracranial internal carotid. Flow within the vertebral arteries is antegrade bilaterally. Ordering Physician: Ezio Russell Referring Physician: Clara Suazo M.D. Performed By: Marleny Francis RVT
== END ==
PROVIDERS: PCP Internal Medicine; Referring Provider Surgery Vascular Surgery; Visit Provider Surgery Vascular Surgery
DX: I65.23 Occlusion and stenosis of bilateral carotid arteries (principal)
CPT/HCPCS: 93880

== ENCOUNTER 2020-10-19 14:37 | Outpatient (RCR) | payer MEDICARE, SELFPAY | END 2020-10-19 18:00 | disposition home or self-care (01) | LOC: HHLAB 14:37 | PROVIDERS: PCP Internal Medicine; Visit Provider Internal Medicine | DX: R73.9 Hyperglycemia, unspecified (principal); M15.0 Primary generalized (osteo)arthritis; Z79.2 Long term (current) use of antibiotics; R53.1 Weakness | CPT/HCPCS: 87086; 87088 ==

== ENCOUNTER → 2021-04-18 12:35 | Outpatient (CLI) | payer MEDICARE, SELFPAY ==
--- NOTE | 2021-04-18 12:39 | CDU_ITS ---
Reason For Study: BILATERAL CAROTID STENOSIS Rt. Velocities/BP Lt. Velocities/BP Prox CCA 96.9/17.3 cm/sec. Prox CCA 103.4/13.9 cm/sec. Mid CCA 82.6/14.7 cm/sec. Mid CCA 94.2/15.7 cm/sec. Dist CCA 86.5/20.0 cm/sec. Dist CCA 74.4/15.5 cm/sec. Prox ICA 84.3/20.4 cm/sec. Prox ICA 292.8/79.5 cm/sec. Mid ICA 118.0/26.7 cm/sec. Mid ICA 139.9/26.7 cm/sec. Dist ICA 167.5/41.7 cm/sec. Dist ICA 121.6/30.3 cm/sec. Rt. ICA/CCA = 167.5/82.6=2.0. Lt. ICA/CCA = 292.8/94.2=3.1. Prox ECA 154.3/5.0 cm/sec. Prox ECA 198.8/12.3 cm/sec. Rt. Vert. 44.0/8.1 cm/sec. Lt. Vert. 70.5/10.2 cm/sec. Right Extracranial There is heterogeneous, irregular atherosclerotic plaque noted in the right common carotid artery. There is heterogeneous, smooth atherosclerotic plaque noted in the right internal carotid artery. There is homogeneous, smooth atherosclerotic plaque noted in the right external carotid artery. Antegrade flow is noted in the right vertebral artery. Left Extracranial There is heterogeneous, irregular atherosclerotic plaque noted in the left common carotid artery. There is heterogeneous, irregular atherosclerotic plaque noted in the left internal carotid artery. There is heterogeneous, irregular atherosclerotic plaque noted in the left external carotid artery. Antegrade flow is noted in the left vertebral artery. There is heterogeneous, irregular atherosclerotic plaque noted in the left bulb. Procedure Carotid Duplex 20324. This is a Carotid Duplex examination using B-mode, color flow and specral Doppler. Exam performed in department. VL/Carotid Duplex Ultrasound Interpretation Summary Mild (<50%) stenosis right extracranial internal carotid. Severe (>70%) stenosi s left extracranial internal carotid. Flow within the vertebral arteries is antegrade bilaterally. Ordering Physician: Ezio Russell Referring Physician: Clara Suazo Performed By: Olga Harrell RVT, RDCS and Student
== END ==
PROVIDERS: PCP Internal Medicine; Referring Provider Surgery Vascular Surgery; Visit Provider Surgery Vascular Surgery
DX: I65.23 Occlusion and stenosis of bilateral carotid arteries (principal)
CPT/HCPCS: 93880

== ENCOUNTER → 2021-04-27 13:10 | Outpatient (CLI) | payer MEDICARE, SELFPAY ==
[2021-04-27 13:40] LABS: CREATININE FINGERSTICK 0.8 mg/dL (0.55-1.02); EGFR FINGERSTICK > 60.0000 mL/min (>60)
--- NOTE | 2021-04-27 13:40 | CT_ITS ---
STUDY: CT ABDOMEN AND PELVIS WITH AND WITHOUT CONTRAST REASON FOR EXAM: Female, 86 years old. HEMATURIA,PAIN,UTI -- UROGRAM RADIATION DOSAGE (If Supplied By Facility): CTDIvol = ( 18.09 ) mGy, DLP = ( 2326.65 ) mGycm TECHNIQUE: Transaxial images were obtained from the dome of the diaphragm to the symphysis pubis without oral contrast. IV 100mL Isovue-300 was administered. Sagittal and coronal images were reconstructed. Individualized dose optimization techniques were used for this CT. COMPARISON: None. FINDINGS: Mild increased markings at the lung bases slightly more prominent on the left side suggestive of bibasilar scarring Coronary artery calcification. Calcification of the mitral valve annulus. There is a 1 cm cyst in the lateral aspect of the right lobe of liver along its inferior margin. There is a 2.2 cm hypodense nodule with a delayed enhancement along the posterior aspect of the right lobe of the liver suggestive of a small hemangioma. Normal gallbladder and extrahepatic biliary system. Normal spleen. Normal pancreas. Normal bilateral adrenal glands. Normal right kidney. There is a 1.7 cm x 1 cm calculus in the left renal pelvis. 3 mm nonobstructive calculus in the lower pole calyx of the left kidney. 2.1 cm cyst in the upper pole of the left kidney. There is a small hiatal hernia. Normal small intestine. Normal colon. The appendix is visualized and appears normal. There is diffuse atherosclerotic calcification of the abdominal aorta and its major visceral branches, without a demonstrated aneurysm. Normal inferior vena cava. Normal retroperitoneum. An air-fluid level is seen along the anterior aspect of the urinary bladder. This most likely is secondary to catheter manipulation. There is absence of the uterus consistent with a prior hysterectomy. Normal abdominal wall. There are diffuse degenerative changes of the visualized lumbar spine. CT/CT Abd/Pelvis W/WO Contrast IMPRESSION: 1.7 cm x 1 cm calculus in the left renal pelvis. Nonobstructive calculus in the lower pole calyx of the left kidney with a small left renal cyst. Hepatic cyst and possible hemangioma in the right lobe as described. Air is seen within the anterior aspect of the urinary bladder. Electronically Signed: Tyrone Jackson MD at 14:55 EDT , Service support ,
== END ==
PROVIDERS: PCP Internal Medicine; Referring Provider Urology; Visit Provider Urology
DX: N39.0 Urinary tract infection, site not specified (principal); R10.30 Lower abdominal pain, unspecified; R31.9 Hematuria, unspecified
CPT/HCPCS: 74178; Q9967; A4216

== ENCOUNTER 2021-05-04 18:21 | Observation (INO) | payer MEDICARE, SELFPAY ==
[2021-05-04 18:22] VITALS: BP 141/77; PULSE 65; RESP 15; TEMP 36.8; O2SAT 96; BMI 27.9
[2021-05-04 18:23] VITALS: BP 141/77; PULSE 65; RESP 15; TEMP 36.8; O2SAT 96
--- NOTE | 2021-05-04 18:36 | ED.VIS.GI ---
HPI HPI - GI History of Present Illness Chief Complaint: Flank Pain Detail of Chief Complaint: Presents with severe left flank pain but became worse today. Informant: patient Narrative Narrative: Patient presents with left flank pain that started today. Patient states that she is currently being treated for urinary tract infection and had a CAT scan on April 27 that showed a large left-sided kidney stone. Patient complains also some lower abdominal discomfort which she thinks is related to her urinary tract infection. Patient complains of urinary frequency. She denies hematuria or dysuria. 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 Patient denies nausea or vomiting. Patient currently rates her pain a 7 out of 10 despite taking a oxycodone prior to coming to the emergency department. [facility] Medical History (Updated 05/04/21 @ 20:[address] Byron Santoro DO) Bipolar disorder Diabetes Hypertension Pulmonary embolism Home Medications Therems-M 1 tab PO DAILY 12/30/13 [History Last Taken Unknown] Venlafaxine Xr [Effexor Xr] 75 mg PO DAILY 12/30/13 [History Last Taken Unknown] aspirin 81 mg PO DAILY@0800 12/30/13 [History Last Taken Unknown] lithium carbonate 150 mg PO BID 12/30/13 [History Last Taken Unknown] metoprolol tartrate 50 mg PO BID 12/30/13 [History Last Taken Unknown] simvastatin 40 mg PO QHS 12/30/13 [History Last Taken Unknown] trazodone 100 mg PO QHS 12/30/13 [History Last Taken Unknown] warfarin [Jantoven] 2.5 mg PO SUTUTHSA 12/30/13 [History Last Taken Unknown] cholecalciferol (vitamin D3) 5,000 unit PO DAILY 04/22/18 [History Last Taken Unknown] oxycodone-acetaminophen 1 tab PO Q6H PRN #4 tab 04/25/18 [Rx Last Taken Unknown] acetaminophen 1,000 mg PO Q8H PRN PRN tablet 05/13/18 [Rx Last Taken Unknown] warfarin 2 mg PO MOWEFR 05/04/21 [History Last Taken Unknown] Allergy/AdvReac Type Severity Reaction Status Date / Time diphenhydramine Allergy Rash Verified 05/04/21 18:24 [From Benadryl] Social History Smoking Status: Never smoker ROS ROS ED Constitutional Constitutional ED: Reports systems reviewed and no addt'l complaints, except as documented; Denies body ache(s), change in weight or chills Eyes Eyes: Denies acute decrease in peripheral vision, change in vision, double vision or loss of vision ENT ENT ED: Reports none; Denies ear pain, lip swelling, loss taste/smell, neck pain, otalgia or sore throat Cardiovascular Cardiovascular: Reports none; Denies abdominal pain, chest pain with activity, leg edema, lightheadedness, palpitations, rapid heart rate or syncope Respiratory/Chest Respiratory/Chest: Reports none; Denies change in mental status, dry cough, dyspnea, hemoptysis, shortness of breath at rest or shortness of breath with exertion Gastrointestinal Gastrointestinal: Reports none and abdominal pain; Denies change in stool character, diarrhea, hematemesis, hematochezia, melena, rectal bleeding or vomiting Genitourinary Genitourinary ED: Reports none and urinary frequency; Denies abdominal discomfort, anuria, dysuria, genital pain or polyuria Musculoskeletal Musculoskeletal: Reports none and back pain; Denies arthralgias, difficulty walking, extremity pain, muscle weakness or myalgias Integumentary Reports none; Denies abscess or rash Neurologic Neurologic: Reports none; Denies abnormal gait, confusion, focal weakness, frequent falls, headache(s), loss of vision, numbness, paresthesias, radicular pain, vertigo or weakness Psychiatric Psychiatric: Reports systems reviewed and no addt'l complaints, except as documented and none; Denies behavioral changes, confusion, difficulty concentrating, hallucinations, suicidal ideation, tactile hallucinations or visual hallucinations Endocrine Endocrinology: Denies none, cold intolerance, excessive sweating, fatigue or heat intolerance Hematologic/Lymphatic Hematologic/Lymphatic: Reports none; Denies anemia, easy bleeding or easy bruising Allergic/Immunologic Allergic/Immunologic ED: Denies as per HPI, none, lip swelling, mouth swelling, throat swelling, tongue swelling or hives EXAM Physical Exam Const Vital Signs: 05/04/21 18:22 05/04/21 18:23 Temperature 98.2 F 98.2 F Temperature Source Temporal Temporal Pulse Rate 65 65 Respiratory Rate 15 15 Blood Pressure 141/77 H 141/77 H Blood Pressure Mean 98 98 Pulse Ox 96 96 Oxygen Delivery Method Room Air Room Air Positive well nourished and well developed General Appearance ED: well developed and NAD HEENT Reports TM's clear and moist mucous membranes normocephalic and atraumatic; Negative for trauma or tenderness Tympanic Membrane ED: Yes TM's clear Eyes PERRL and EOMs intact bilaterally General Eye ED: Negative for pale conjunctiva or scleral icterus Neck no lymphadenopathy, supple and no JVD General: Negative for tenderness Chest Wall inspection of chest normal and palpation of chest normal Chest: Negative for tenderness Resp normal respiratory effort and clear to auscultation bilaterally Effort and Inspection: Negative for respiratory distress or pain with movement Auscultation: Negative for rhonchi, wheezes or diminished lung sounds Cardio regular rate, regular rhythm, S1 normal heart sound, S2 normal heart sound and no murmurs Peripheral Pulses: pulses 2+ throughout GI normal to inspection, nondistended, normoactive bowel sounds, soft to palpation, non-tender, non-distended and no masses Back/Spine no thoracic nor lumbar tenderness General Back: CVA tenderness left Extremity normal to inspection General Extremety ED: Negative for edema General Extremity: Negative for edema Neuro oriented x3, CN's II-XII intact bilaterally, no sensory deficits noted and gait normal Sensorium / Orientation: awake, alert, oriented to person, oriented to place and oriented to time Motor Exam: strength 5/5 throughout and strength abnormal Psych mental status grossly normal Skin no rashes or lesions noted and no wounds MDM MDM MDM Narrative Medical decision making narrative: Patient was discussed with her urologist Dr. Magy Kellogg who will admit patient for intractable flank pain and kidney stone. Patient also noted on CT to have an enhancing cystic lesion of the left kidney concerning for renal cell carcinoma. Lab Data Attestation: I reviewed the patient's lab results. Labs: Laboratory Results - last 24 hr 05/04/21 05/04/21 05/04/21 18:40 18:40 18:40 WBC 8.1 RBC 4.12 L Hgb 12.7 Hct 40.8 MCV 99.0 MCH 30.8 MCHC 31.1 L RDW Std Deviation 50.6 H RDW Coeff of Fidencio 13.9 Plt Count 210 MPV 10.0 Immature Gran % (Auto) 0.500 Neut % (Auto) 57.3 Lymph % (Auto) 24.2 [place] % (Auto) 12.7 H Eos % (Auto) 4.4 Baso % (Auto) 0.9 Absolute Neuts (auto) 4.6 Absolute Lymphs (auto) 1.96 Nucleated RBC % 0 PT 19.5 H INR 1.7 Sodium 139 Potassium 4.3 Chloride 105 Carbon Dioxide 31.0 Anion Gap 3 L BUN 16 Creatinine 1.10 H Estim Creat Clear Calc 26.37 Est GFR (MDRD) Af Amer 61 Est GFR (MDRD) Non-Af 50 L BUN/Creatinine Ratio 14.5 Glucose 110 H Calcium 9.6 Urine Color Urine Clarity Urine pH Ur Specific [place] Urine Protein Urine Glucose (UA) Urine Ketones Urine Occult Blood Urine Nitrite Urine Bilirubin Urine Urobilinogen Ur Leukocyte Esterase Urine RBC Urine WBC Ur Squamous Epith Cells Amorphous Sediment Urine Bacteria Urine Mucus 05/04/21 19:25 WBC RBC Hgb Hct MCV MCH MCHC RDW Std Deviation RDW Coeff of Fidencio Plt Count MPV Immature Gran % (Auto) Neut % (Auto) Lymph % (Auto) [place] % (Auto) Eos % (Auto) Baso % (Auto) Absolute Neuts (auto) Absolute Lymphs (auto) Nucleated RBC % PT INR Sodium Potassium Chloride Carbon Dioxide Anion Gap BUN Creatinine Estim Creat Clear Calc Est GFR (MDRD) Af Amer Est GFR (MDRD) Non-Af BUN/Creatinine Ratio Glucose Calcium Urine Color Yellow Urine Clarity Sl. Cloudy Urine pH 7.0 Ur Specific [place] 1.010 Urine Protein 30 H Urine Glucose (UA) Normal Urine Ketones Negative Urine Occult Blood 150 H Urine Nitrite Negative Urine Bilirubin Negative Urine Urobilinogen Normal Ur Leukocyte Esterase 25 H Urine RBC 50-100 SEEN Urine WBC 0-5 SEEN Ur Squamous Epith Cells 0-5 SEEN Amorphous Sediment 1+ PHOS Urine Bacteria 0 SEEN Urine Mucus 0 SEEN Radiography Diagnostic Testing: Radiology Impression Abdomen/Pelvis CT 05/04/21 19:07 IMPRESSION: Stable left renal calculi, largest measuring 1.7 cm. No significant hydronephrosis. 2.1 cm enhancing cyst in the upper pole of the left kidney is suspicious for renal cell carcinoma. Electronically Signed: Esau Simmons MD at 20:29 EDT Tel , Service support , Discharge Plan Triage Chief Complaint: Flank Pain ED Provider: Byron Santoro Dx/Rx/DC Orders Clinical Impression: Intractable pain Prescriptions: No Action trazodone 50 MG tablet 100 mg PO QHS RF: 0 lithium carbonate 300 MG tablet 150 mg PO BID RF: 0 simvastatin 40 MG tablet 40 mg PO QHS RF: 0 warfarin [Jantoven] 2 MG tablet 2.5 mg PO SUTUTHSA RF: 0 metoprolol tartrate 50 MG tablet 50 mg PO BID RF: 0 Therems-M 1 TABLET tablet 1 tab PO DAILY RF: 0 Venlafaxine Xr [Effexor Xr] 75 MG capsule 75 mg PO DAILY RF: 0 aspirin 81 MG tablet,chewable 81 mg PO DAILY@0800 RF: 0 cholecalciferol (vitamin D3) 5,000 UNIT capsule 5,000 unit PO DAILY RF: 0 oxycodone-acetaminophen 1 TABLET tablet 1 tab PO Q6H PRN (Reason: Pain) Qty: 4 RF: 0 acetaminophen 500 MG tablet 1,000 mg PO Q8H PRN PRN (Reason: Mild Pain (-01/04)) RF: 0 warfarin 2 mg Tablet 2 mg PO MOWEFR RF: 0 Primary Care Provider: Clara Suazo Referrals: Clara Suazo DO [Primary Care Provider] - Disposition Disposition: Acute Care Hospital [facility]
[2021-05-04] MEDS: 0.9% Normal Saline 1,000 ML 150 ML IV (18:53)
[2021-05-04] MEDS: Morphine 4 MG/ML Syringe IV (18:53)
[2021-05-04] MEDS: Ondansetron 4 MG/2 ML Vial IV (18:53)
[2021-05-04 18:58] LABS: Absolute Lymphocyte Count 1.96 X10^3/uL (0.83-4.51); Absolute Neutrophil Count 4.6 X10^3/uL (2.0-7.7); Basophil# 0.07 X10^3/uL; Basophil% 0.9 % (0-1); Eosinophil# 0.36 X10^3/uL; Eosinophils% 4.4 % (0-5); Hematocrit 40.8 % (37-47); Hemoglobin 12.7 g/dL (12.0-15.0); Lymphocyte # 1.96 X10^3/ul (0.83-4.51); Lymphocyte % 24.2 % (19-41); Mean Corp Hgb Conc 31.1 g/dL (32-36); Mean Corpuscular Hgb 30.8 pg (27.0-32.0); Monocyte# 1.03 X10^3/uL; Monocyte% 12.7 % (0-10); NRBC Flagged by Analyzer 0 % (0-5); Neutrophil # 4.63 X10^3/uL (2.7-7.7); Neutrophil % 57.3 % (47-70); Platelet Count 210 K/mm3 (150-450); RBC Distribution Width CV 13.9 % (11.6-14.6); RBC Distribution Width SD 50.6 fl (35.1-43.9); Red Blood Count 4.12 M/mm3 (4.2-5.4); White Blood Count 8.1 K/mm3 (4.4-11.0)
--- NOTE | 2021-05-04 19:07 | CT_ITS ---
INDICATION: left flank pain EXAMINATION: CT Abdomen And Pelvis W/O Contrast Injection TECHNIQUE: Helically acquired images were obtained of the abdomen and pelvis without the use of IV contrast. A radiation dose optimization technique was used for this scan. Oral contrast: None. COMPARISON: 04/27/2021 FINDINGS: Evaluation of the solid organs and vascular structures is limited without intravenous contrast. Visualized lung bases: Chronic lung changes. Liver: Scattered subcentimeter hypodensities are too small to characterize but most likely cysts. 2.2 cm hypodensity along the periphery of the posterior right hepatic lobe with calcification. This could represent scarring. Gallbladder: Few small intraluminal stones seen. Spleen: Unremarkable Pancreas: Unremarkable Adrenal Glands: Unremarkable Kidneys: 1.7 cm calculus in the left renal pelvis. Few other smaller calculi in the left kidney. No hydronephrosis. 2.1 cm partially exophytic cyst in the upper pole of the left kidney is enhancing (upon review of multiphase CT dated 04/27/2021). Vasculature: Severe aortoiliac atherosclerotic disease. GI Tract: Hiatal hernia. Lymphadenopathy: None Peritoneum: No ascites. Bladder: Small focus of air within the bladder could be due to prior catheterization. Reproductive organs: Unremarkable Bones/Soft tissues: There are diffuse degenerative changes of the spine. CT/Abdomen/Pelvis without Cont IMPRESSION: Stable left renal calculi, largest measuring 1.7 cm. No significant hydronephrosis. 2.1 cm enhancing cyst in the upper pole of the left kidney is suspicious for renal cell carcinoma. Electronically Signed: Esau Simmons MD at 20:29 EDT Tel , Service support ,
[2021-05-04 19:13] LABS: Anion Gap 3 (5-15); BUN 16 mg/dL (7-18); BUN/Creat Ratio 14.5 RATIO (10-20); Calcium,Total 9.6 mg/dL (8.5-10.1); Chloride 105 mmol/L (98-107); EST Glomerular Filtration Rate 50 mL/min (>60); Est Glom Filt Rate - Afr Amer 61 mL/min (>60); Estimated Creatinine Clearance 26.37 ml/min; Glucose 110 mg/dL (74-106); Potassium 4.3 mmol/L (3.5-5.1); Sodium Level 139 mmol/L (136-145)
[2021-05-04 19:21] LABS: International Normalized Ratio 1.7; Prothrombin Time (Protime)PT. 19.5 SECONDS (11.7-14.9)
[2021-05-04 19:34] LABS: Bacteria 0 SEEN /hpf (None Seen); Mucous, Urine 0 SEEN /hpf (<or=2+)
[2021-05-04 19:37] LABS: Color, Urine Yellow (Yellow); Glucose, Dipstick Normal (Normal); Ketone-Dipstick Negative (Negative); Leukocyte Esterase-Dipstick 25 /ul (Negative); Nitrite-Dipstick Negative (Negative); Occult Blood-Urine 150 /ul (Negative); Protein-Dipstick 30 mg/dl (Negative); Urine Bilirubin Dipstick Negative (Negative); Urine Clarity Sl. Cloudy (Clear); Urine Urobilinogen Normal (Normal)
[2021-05-04 19:43] LABS: Amorphous Sediment 1+ PHOS; Red Blood Cells-Urine 50-100 SEEN /hpf (0-5); Squamous Epithelial Cells - UA 0-5 SEEN /hpf (5-10); White Blood Cells 0-5 SEEN /hpf (0-5)
[2021-05-04 20:50] VITALS: BP 126/62; PULSE 63; RESP 16; TEMP 36.4; O2SAT 93
[2021-05-04 21:06] VITALS: BP 126/62; PULSE 63; RESP 16; TEMP 36.8; O2SAT 93
[2021-05-04 21:21] VITALS: BMI 28.3
[2021-05-04 21:25] VITALS: BP 168/76; PULSE 62; RESP 16; TEMP 36.8; O2SAT 94
[2021-05-04] MEDS: Dextrose 5%-Lactated Ringers 1,000 ML 100 ML IV (22:20)
[2021-05-04 22:39] VITALS: BP 168/76; PULSE 62
[2021-05-04] MEDS: Lithium Carbonate 150 MG Capsule PO (22:39)
[2021-05-04] MEDS: Atorvastatin Calcium 20 MG Tablet PO (22:39)
[2021-05-04] MEDS: Metoprolol Tartrate 50 MG Tablet PO (22:39)
[2021-05-04] MEDS: Ketorolac 15 MG/ML Vial IV (22:39)
[2021-05-05 02:38] VITALS: BP 128/40; PULSE 52; RESP 16; TEMP 37.1; O2SAT 95
--- NOTE | 2021-05-05 05:55 | EKG12_ITS ---
Test Reason : AM EKG Blood Pressure : / mmHG Vent. Rate : 058 BPM Atrial Rate : 058 BPM P-R Int : 196 ms QRS Dur : 084 ms QT Int : 426 ms P-R-T Axes : 077 068 048 degrees QTc Int : 418 ms Sinus bradycardia Otherwise normal ECG When compared with ECG of 22-APR-2018 16:55, No significant change was found Confirmed by ANTOINETTE GARCIA, SONIA ([id number]), assistant editor ORLIN KHANNA ([id number]) on 05/09/2021 7:47:44 AM Referred By: SINCERE Confirmed By:SONIA CURRY MD
[2021-05-05 06:20] VITALS: BP 127/47; PULSE 56; RESP 16; TEMP 36.7; O2SAT 94
[2021-05-05 06:56] LABS: Absolute Lymphocyte Count 1.86 X10^3/uL (0.83-4.51); Absolute Neutrophil Count 4.6 X10^3/uL (2.0-7.7); Basophil# 0.07 X10^3/uL; Basophil% 0.9 % (0-1); Eosinophil# 0.38 X10^3/uL; Eosinophils% 4.9 % (0-5); Hematocrit 36.2 % (37-47); Hemoglobin 11.1 g/dL (12.0-15.0); Lymphocyte # 1.86 X10^3/ul (0.83-4.51); Lymphocyte % 23.8 % (19-41); Mean Corp Hgb Conc 30.7 g/dL (32-36); Mean Corpuscular Hgb 30.7 pg (27.0-32.0); Mean Corpuscular Volume 100.3 fL (81-99); Mean Platelet Vol. 10.4 fl (6.2-12.0); Monocyte# 0.85 X10^3/uL; Monocyte% 10.9 % (0-10); NRBC Flagged by Analyzer 0 % (0-5); Platelet Count 179 K/mm3 (150-450); RBC Distribution Width SD 51.5 fl (35.1-43.9); Red Blood Count 3.61 M/mm3 (4.2-5.4); White Blood Count 7.8 K/mm3 (4.4-11.0)
[2021-05-05 07:10] LABS: International Normalized Ratio 1.8; Prothrombin Time (Protime)PT. 20.2 SECONDS (11.7-14.9)
[2021-05-05 07:30] LABS: Anion Gap 1 (5-15); BUN 16 mg/dL (7-18); BUN/Creat Ratio 16.8 RATIO (10-20); Calcium,Total 8.5 mg/dL (8.5-10.1); Chloride 108 mmol/L (98-107); Creatinine, Serum 0.95 mg/dL (0.55-1.02); EST Glomerular Filtration Rate 59 mL/min (>60); Est Glom Filt Rate - Afr Amer 71 mL/min (>60); Estimated Creatinine Clearance 30.53 ml/min; Glucose 109 mg/dL (74-106); Potassium 5.1 mmol/L (3.5-5.1); Sodium Level 138 mmol/L (136-145)
[2021-05-05] MEDS: Dextrose 5%-Lactated Ringers 1,000 ML 100 ML IV (08:13)
[2021-05-05 08:23] VITALS: BP 111/51; PULSE 58; RESP 16; TEMP 36.9; O2SAT 95; BMI 28.5
--- NOTE | 2021-05-05 09:35 | NURSING ---
pt to surgery via bed
--- NOTE | 2021-05-05 10:53 | PCM.HP.STD ---
HPI - General General Date of Admission: 05/04/21 HPI Narrative Jeanne PRASAD, is a 86 F who presents with left-sided abdominal pain uncontrolled on Percocet at home. She has a known large left renal calculus which we are in the process of getting scheduled for surgical intervention as an outpatient. She has no nausea, vomiting, no fever, but has had some chills at home. Overnight her pain has been well controlled and she has no pain at the present time. We discussed the process of a ureteral stent insertion, and at this time given that she has have having no pain and that the stone is chronic, she would like to postpone the stent insertion until the time of the extracorporal shockwave lithotripsy procedure. [facility] Medical History (Updated 05/05/21 @ 10:[address] Magy Kellogg MD) Bipolar disorder Chronic pain Coronary artery disease Depression Diabetes Difficulty chewing Difficulty swallowing High cholesterol History of stress test Hypertension Kidney stones Left renal stone Loose, teeth Non-smoker Post-menopausal Pulmonary embolism Rheumatoid arthritis Home Medications Therems-M 1 tab PO DAILY 12/30/13 [History Last Taken 05/03/21] aspirin 81 mg PO DAILY@0800 12/30/13 [History Last Taken 05/04/21] metoprolol tartrate 50 mg PO BID 12/30/13 [History Last Taken 05/04/21] simvastatin 40 mg PO QHS 12/30/13 [History Last Taken 05/03/21] cholecalciferol (vitamin D3) 5,000 unit PO DAILY 04/22/18 [History Last Taken 05/04/21] oxycodone-acetaminophen 1 tab PO Q6H PRN #4 tab 04/25/18 [Rx Last Taken 05/04/21] acetaminophen 1,000 mg PO Q8H PRN PRN tablet 05/13/18 [Rx Last Taken 05/04/21] lithium carbonate 150 mg PO BID 05/04/21 [History Last Taken 05/04/21] trazodone 100 mg PO QHS 05/04/21 [History Last Taken 05/03/21] venlafaxine [Effexor XR] 75 mg PO DAILY 05/04/21 [History Last Taken 05/04/21] warfarin 2.5 mg PO QODAY@1630 05/04/21 [History Last Taken 05/04/21] warfarin 3 mg PO QODAY@1630 05/04/21 [History Last Taken 05/03/21] Allergy/AdvReac Type Severity Reaction Status Date / Time diphenhydramine Allergy Rash Verified 05/04/21 18:24 [From Benadryl] Surgical History History of appendectomy S/P hysterectomy Social History adopted: No household members: children housing: house number of children: 2 (one ) service: No current occupational status: retired Smoking Status: Never smoker ROS Constitutional Constitutional: Reports chills; Denies anorexia, fever(s), frequent falls or headache(s) Cardiovascular Cardiovascular: Reports abdominal pain; Denies chest pain, cyanosis or dyspnea Respiratory/Chest Respiratory/Chest: Denies change in mental status, chest congestion or inability to speak Gastrointestinal Gastrointestinal: Reports abdominal pain; Denies anorexia, change in bowel habits, chewing difficulty or dysphagia Genitourinary Genitourinary: Reports abdominal discomfort, flank pain, urinary frequency, urinary incontinence and urinary urgency; Denies burning urination, change in urinary stream or hematuria Musculoskeletal Musculoskeletal: Reports systems reviewed and no addt'l complaints, except as documented Integumentary Integumentary: Denies erythema, jaundice, lesions or rash Neurologic Neurologic: Denies abnormal movements or abnormal speech Vital Signs Vital Signs Vital Signs: 05/04/21 18:22 05/04/21 18:23 05/04/21 20:50 Temperature 98.2 F 98.2 F 97.6 F L Temperature Source Temporal Temporal Temporal Pulse Rate 65 65 63 Respiratory Rate 15 15 16 Respiratory Effort Respiratory Depth Respiratory Pattern Blood Pressure 141/77 H 141/77 H 126/62 H Blood Pressure Mean 98 98 83 Blood Pressure Source Blood Pressure Position Blood Pressure Location Pulse Ox 96 96 93 Oxygen Delivery Method Room Air Room Air Room Air 05/04/21 21:06 05/04/21 21:25 05/04/21 22:39 Temperature 98.2 F 98.2 F Temperature Source Temporal Oral Pulse Rate 63 62 62 Respiratory Rate 16 16 Respiratory Effort Respiratory Depth Respiratory Pattern Blood Pressure 126/62 H 168/76 H 168/76 H Blood Pressure Mean 83 106 Blood Pressure Source Monitor Blood Pressure Position Semi-Fowlers Blood Pressure Location Right Arm Pulse Ox 93 94 Oxygen Delivery Method Room Air Room Air 05/04/21 22:42 05/05/21 02:38 05/05/21 02:42 Temperature 98.8 F Temperature Source Temporal Pulse Rate 52 L Respiratory Rate 16 Respiratory Effort Normal Non-Labored Respiratory Depth Normal Respiratory Pattern Normal Blood Pressure 128/40 H Blood Pressure Mean 69 Blood Pressure Source Monitor Blood Pressure Position Semi-Fowlers Blood Pressure Location Right Arm Pulse Ox 95 Oxygen Delivery Method Room Air Room Air Room Air 05/05/21 06:20 05/05/21 08:23 Temperature 98.1 F 98.4 F Temperature Source Oral Oral Pulse Rate 56 L 58 L Respiratory Rate 16 16 Respiratory Effort Respiratory Depth Respiratory Pattern Blood Pressure 127/47 H 111/51 L Blood Pressure Mean 73 71 Blood Pressure Source Monitor Monitor Blood Pressure Position Semi-Fowlers Semi-Fowlers Blood Pressure Location Right Arm Right Arm Pulse Ox 94 95 Oxygen Delivery Method Room Air Room Air Weight Weight: 65.8 kg Body Mass Index (BMI) 28.5 Physical Exam Const alert, oriented x3 and no apparent distress General Appearance: cooperative, comfortable and well kempt Orientation / Consciousness: awake and oriented to person HEENT normocephalic, head/scalp atraumatic and external ears normal Neck General: normal visual inspection and trachea midline Lymph Lymphatic: no lymphedema noted Chest Chest: symmetrical chest wall rise Resp normal respiratory effort, normal air movement, no retractions and no use of accessory muscles Cardio regular rate GI soft to palpation, non-tender and non-distended external exam normal Back/Spine no CVA tenderness Extremity normal to inspection Skin no rashes or lesions noted, no wounds, skin turgor normal, no jaundice, no petechiae and no mottling Neuro oriented x3, CN's II-XII intact bilaterally and moves all extremities Psych mental status grossly normal, thought process normal and cooperative Results Lab / Micro Data Result Diagrams: 05/05/21 06:20 05/05/21 06:20 Labs: Laboratory Results - last 24 hr 05/04/21 05/04/21 05/04/21 18:40 18:40 18:40 WBC 8.1 RBC 4.12 L Hgb 12.7 Hct 40.8 MCV 99.0 MCH 30.8 MCHC 31.1 L RDW Std Deviation 50.6 H RDW Coeff of Fidencio 13.9 Plt Count 210 MPV 10.0 Immature Gran % (Auto) 0.500 Neut % (Auto) 57.3 Lymph % (Auto) 24.2 [place] % (Auto) 12.7 H Eos % (Auto) 4.4 Baso % (Auto) 0.9 Absolute Neuts (auto) 4.6 Absolute Lymphs (auto) 1.96 Nucleated RBC % 0 PT 19.5 H INR 1.7 Sodium 139 Potassium 4.3 Chloride 105 Carbon Dioxide 31.0 Anion Gap 3 L BUN 16 Creatinine 1.10 H Estim Creat Clear Calc 26.37 Est GFR (MDRD) Af Amer 61 Est GFR (MDRD) Non-Af 50 L BUN/Creatinine Ratio 14.5 Glucose 110 H Calcium 9.6 Urine Color Urine Clarity Urine pH Ur Specific [place] Urine Protein Urine Glucose (UA) Urine Ketones Urine Occult Blood Urine Nitrite Urine Bilirubin Urine Urobilinogen Ur Leukocyte Esterase Urine RBC Urine WBC Ur Squamous Epith Cells Amorphous Sediment Urine Bacteria Urine Mucus 05/04/21 05/05/21 05/05/21 19:25 06:20 06:20 WBC 7.8 RBC 3.61 L Hgb 11.1 L Hct 36.2 L MCV 100.3 H MCH 30.7 MCHC 30.7 L RDW Std Deviation 51.5 H RDW Coeff of Fidencio 14.0 Plt Count 179 MPV 10.4 Immature Gran % (Auto) 0.500 Neut % (Auto) 59.0 Lymph % (Auto) 23.8 [place] % (Auto) 10.9 H Eos % (Auto) 4.9 Baso % (Auto) 0.9 Absolute Neuts (auto) 4.6 Absolute Lymphs (auto) 1.86 Nucleated RBC % 0 PT 20.2 H INR 1.8 Sodium Potassium Chloride Carbon Dioxide Anion Gap BUN Creatinine Estim Creat Clear Calc Est GFR (MDRD) Af Amer Est GFR (MDRD) Non-Af BUN/Creatinine Ratio Glucose Calcium Urine Color Yellow Urine Clarity Sl. Cloudy Urine pH 7.0 Ur Specific [place] 1.010 Urine Protein 30 H Urine Glucose (UA) Normal Urine Ketones Negative Urine Occult Blood 150 H Urine Nitrite Negative Urine Bilirubin Negative Urine Urobilinogen Normal Ur Leukocyte Esterase 25 H Urine RBC 50-100 SEEN Urine WBC 0-5 SEEN Ur Squamous Epith Cells 0-5 SEEN Amorphous Sediment 1+ PHOS Urine Bacteria 0 SEEN Urine Mucus 0 SEEN 05/05/21 06:20 WBC RBC Hgb Hct MCV MCH MCHC RDW Std Deviation RDW Coeff of Fidencio Plt Count MPV Immature Gran % (Auto) Neut % (Auto) Lymph % (Auto) [place] % (Auto) Eos % (Auto) Baso % (Auto) Absolute Neuts (auto) Absolute Lymphs (auto) Nucleated RBC % PT INR Sodium 138 Potassium 5.1 Chloride 108 H Carbon Dioxide 29.0 Anion Gap 1 L BUN 16 Creatinine 0.95 Estim Creat Clear Calc 30.53 Est GFR (MDRD) Af Amer 71 Est GFR (MDRD) Non-Af 59 L BUN/Creatinine Ratio 16.8 Glucose 109 H Calcium 8.5 Urine Color Urine Clarity Urine pH Ur Specific [place] Urine Protein Urine Glucose (UA) Urine Ketones Urine Occult Blood Urine Nitrite Urine Bilirubin Urine Urobilinogen Ur Leukocyte Esterase Urine RBC Urine WBC Ur Squamous Epith Cells Amorphous Sediment Urine Bacteria Urine Mucus Micro: Microbiology 05/04/21 22:54 SARS-CoV-2 Antigen (Rapid) - Final Mucosa - Nose Radiology Impression Abdomen/Pelvis CT 05/04/21 19:07 IMPRESSION: Stable left renal calculi, largest measuring 1.7 cm. No significant hydronephrosis. 2.1 cm enhancing cyst in the upper pole of the left kidney is suspicious for renal cell carcinoma. Electronically Signed: Esau Simmons MD at 20:29 EDT Tel , Service support , Assessment & Plan Assessment/Plan (1) Left renal stone: PLAN: Discharge home today on oral pain control with plans for surgical intervention as soon as possible. She will have to stop her Coumadin prior to the procedure. Patient's son and brother are present for the discussion with her today. (2) Intractable pain:
[2021-05-05 11:09] VITALS: PULSE 58
--- NOTE | 2021-05-05 11:09 | PCM.DC ---
Discharge Instructions Diet Discharge Diet: No restrictions Activity Discharge Activity: Return to Normal Activity Dressing / Incision Call your doctor if you observe: Fever of 101 or Higher, Inability to urinate, Inability to have a bowel movement and Uncontrolled pain Follow Up Care Please Follow Up With: Magy Kellogg MD When: office will call you for appt. Test Results: Test results from this visit will be discussed in further detail at your follow-up appointment, if applicable. Discharge Plan Admission Admit Date/Time: 05/04/21 22:14 Attending Provider: Magy Kellogg Primary Care Provider: Clara Suazo Discharge Orders/Prescriptions Prescriptions: New oxycodone-acetaminophen [oxycodone-acetaminophen] 1 TABLET tablet 2 tab PO Q8H PRN PRN (Reason: Pain) 7 Days Qty: 20 RF: 0 cephalexin [cephalexin] 500 MG capsule 500 mg PO Q12 3 Days Qty: 6 RF: 0 Continued simvastatin 40 MG tablet 40 mg PO QHS RF: 0 metoprolol tartrate 50 MG tablet 50 mg PO BID RF: 0 Therems-M 1 TABLET tablet 1 tab PO DAILY RF: 0 aspirin 81 MG tablet,chewable 81 mg PO DAILY@0800 RF: 0 cholecalciferol (vitamin D3) 5,000 UNIT capsule 5,000 unit PO DAILY RF: 0 acetaminophen 500 MG tablet 1,000 mg PO Q8H PRN PRN (Reason: Mild Pain (-01/04)) RF: 0 venlafaxine [Effexor XR] 75 mg Capsule,Extended Release 24hr 75 mg PO DAILY RF: 0 warfarin 2.5 mg Tablet 2.5 mg PO QODAY@1630 RF: 0 lithium carbonate 150 mg Capsule 150 mg PO BID RF: 0 warfarin 3 mg Tablet 3 mg PO QODAY@1630 RF: 0 trazodone 100 mg Tablet 100 mg PO QHS RF: 0 oxycodone-acetaminophen 1 TABLET tablet 1 tab PO Q6H PRN (Reason: Pain) 14 Days Qty: 4 RF: 0 Referrals / Follow Up: Clara Suazo DO [Primary Care Provider] - Disposition Disposition (needs filled in before D/C Order can be placed): Home, Self Care
[2021-05-05] MEDS: Venlafaxine XR 75 MG Capsule PO (11:15)
[2021-05-05] MEDS: Lithium Carbonate 150 MG Capsule PO (11:16)
--- NOTE | 2021-05-05 11:20 | CASEMGMT ---
GINI OCONNOR Face to Face with patient for initial transition planning/care coordination assessment. RN CM introduced self and role at [facility]. Patient lying in bed, alert and oriented, son and brother at bedside. Patient willing to participate in assessment and is able to answer all questions appropriately. Care providers, pharmacy, and demographics verified. Patient wishes to discharge home and would like [facility]. Patient prefers [facility] as she has had them previously. Referrral made to [facility]. Patient states she has no further needs or concerns at this time. CM to follow for discharge planning needs that may arise. PCP: Gabriele Specialists: Bess Preferred Pharmacy: [email or web address] Insurance: [employer] Prescription Benefit: yes Living Will/HPOA: yes, son Christiano Gage LNOK: son Living Arrangements: Patient lives with son in a single story home with 3 steps and railing to enter. Patient states she is normally independent for selfcare. Transportation: son DME/HHC: Patient has shower chair, raised toilet, cane, walker, and grab bars. Patient has previous had [facility] and referral made at this time. Disposition Plan: Patient to discharge home with [facility], family support, and follow-up plans in place. Marleny LAM, RN, CM
[2021-05-05] MEDS: Morphine 4 MG/ML Syringe IV (11:45)
[2021-05-05] MEDS: 0.9% Saline Lock 10 ML Syringe IV (11:46)
--- NOTE | 2021-05-05 12:01 | CASEMGMT ---
Received return call from Irene at [facility], they are able to accept pt for HHC.
== END 2021-05-05 12:20 | disposition home health service (06) ==
LOC: ED 20:43 → MS3 22:42
PROVIDERS: Anesthesiology; Admitting Provider Urology; Emergency Provider Emergency Medicine; PCP Internal Medicine; Visit Provider Urology
DX: N20.0 Calculus of kidney (principal); F31.9 Bipolar disorder, unspecified; I10 Essential (primary) hypertension; E11.9 Type 2 diabetes mellitus without complications; I25.10 Atherosclerotic heart disease of native coronary artery without angina pectoris; G89.29 Other chronic pain; Z79.01 Long term (current) use of anticoagulants; Z86.718 Personal history of other venous thrombosis and embolism; Z86.711 Personal history of pulmonary embolism; Z79.899 Other long term (current) drug therapy; Z79.82 Long term (current) use of aspirin; E78.00 Pure hypercholesterolemia, unspecified; M06.9 Rheumatoid arthritis, unspecified
CPT/HCPCS: 36415; 74176; 80048; 81001; 85025; 85610; 87426; 92526; 93005; 96361; 96374; 96375; 96376; 99218; 99282; J7030; A4216; G0378; J2405

== ENCOUNTER 2021-05-12 05:59 | Day surgery (SDC) | payer MEDICARE, SELFPAY ==
[2021-05-12] VITALS (10 sets, daily range): BP systolic 147–185; BP diastolic 48–119; PULSE 51–58; RESP 14–16; TEMP 35.5–36.1; O2SAT 92–100; BMI 28.1
[2021-05-12 06:26] LABS: INR Fingerstick 1.1; Prothrombin Time Fingerstick 12.8 SEC (11.9-14.4)
[2021-05-12] MEDS: Lactated Ringers 1,000 ML 100 ML IV (06:46)
[2021-05-12] MEDS: Cefazolin 2 GM in 0.9% Normal Saline 100 ML IV (07:30)
--- NOTE | 2021-05-12 07:39 | PCM.OPRPT ---
Problems Associated Problem List Diagnoses (1) Left renal stone: Report of Operation Date of Procedure: 05/12/21 Pre-Operative Diagnosis: Left renal calculus Post-Operative Diagnosis: Same Surgery/Procedure Performed:: Left renal extracorporal shockwave lithotripsy, cystoscopy with left ureteral stent insertion Surgeon: Magy Kellogg Type of Anesthesia: General Specimen's removed: None Description of Procedure: The patient is an 86-year-old female found to have a large left renal calculus who now presents for definitive intervention. Informed consent was obtained. The patient was taken to the operating room and placed on the operating room table. Anesthesia monitored the head, neck, airway, IV access and vital signs throughout the case. Once anesthesia was appropriately ministered the patient was aligned with a lithotripter and 3000 shocks were applied to the stone. It appeared to be fragmented at the conclusion of this. At this time the patient was placed into dorsal lithotomy position was prepped and draped in usual sterile fashion. A cystourethroscopy was performed through the urethra under direct visualization. The left ureteral orifice was identified and intubated with a 0.035 Glidewire. The 6 Mont[place]grin 22 cm double-J stent was then inserted over the guidewire without difficulty. Curling was achieved in the renal pelvis as well as the urinary bladder. There were no suspicious lesions identified within her urinary bladder. Her bladder was emptied and the case was terminated. The patient tolerated the procedure well. She was taken to the recovery room in good condition. Grafts/Implants Used: 6x22 JJ stent Complications None Admit VTE Documentation VTE Present on Admission: Yes VTE Mechan Device Prophylaxis: SCD's VTE Pharm Prophylaxis ordered?: Yes
--- NOTE | 2021-05-12 07:42 | PCM.DC ---
Discharge Instructions Diet Discharge Diet: No restrictions Activity Discharge Activity: Return to Normal Activity Dressing / Incision Call your doctor if you observe: Fever of 101 or Higher, Inability to urinate, Inability to have a bowel movement, Chest pain, Calf discomfort and Uncontrolled pain Follow Up Care Please Follow Up With: Magy Kellogg MD When: 2-3 weeks with [facility] Test Results: Test results from this visit will be discussed in further detail at your follow-up appointment, if applicable. Discharge Plan Admission Attending Provider: Magy Kellogg Primary Care Provider: Clara Suazo Discharge Orders/Prescriptions Prescriptions: New phenazopyridine [phenazopyridine] 100 MG tablet 100 mg PO TID Qty: 30 RF: 0 Continued simvastatin 40 MG tablet 40 mg PO QHS RF: 0 metoprolol tartrate 50 MG tablet 50 mg PO BID RF: 0 Therems-M 1 TABLET tablet 1 tab PO DAILY RF: 0 aspirin 81 MG tablet,chewable 81 mg PO DAILY@0800 RF: 0 cholecalciferol (vitamin D3) 5,000 UNIT capsule 5,000 unit PO DAILY RF: 0 acetaminophen 500 MG tablet 1,000 mg PO Q8H PRN PRN (Reason: Mild Pain (-01/04)) RF: 0 venlafaxine [Effexor XR] 75 mg Capsule,Extended Release 24hr 75 mg PO DAILY RF: 0 warfarin 2.5 mg Tablet 2.5 mg PO QODAY@1630 RF: 0 lithium carbonate 150 mg Capsule 150 mg PO BID RF: 0 warfarin 3 mg Tablet 3 mg PO QODAY@1630 RF: 0 trazodone 100 mg Tablet 100 mg PO QHS RF: 0 oxycodone-acetaminophen 1 TABLET tablet 2 tab PO Q8H PRN PRN (Reason: Pain) 7 Days Qty: 20 RF: 0 cephalexin 500 MG capsule 500 mg PO Q12 3 Days Qty: 6 RF: 0 Changed oxycodone-acetaminophen 1 TABLET tablet 1 tab PO Q8H PRN (Reason: Pain) 7 Days Qty: 10 RF: 0 Referrals / Follow Up: Clara Suazo DO [Primary Care Provider] - Disposition Disposition (needs filled in before D/C Order can be placed): Home, Self Care
--- NOTE | 2021-05-12 08:05 | PCM.HP.STD ---
HPI - General HPI Narrative Jeanne PRASAD, is a 86 F who presents for definitive management of a large left renal calculus with extracorporal shockwave lithotripsy, cystoscopy and stent insertion. Informed consent was obtained. [facility] Medical History Arthritis Bipolar disorder Chronic pain Coronary artery disease Depression Diabetes Difficulty chewing Difficulty swallowing Easy bruising High cholesterol History of steroid therapy History of stress test Hypertension Kidney stones Left renal stone Loose, teeth Non-smoker Post-menopausal Pulmonary embolism Rheumatoid arthritis Walker as ambulation aid Wears dentures Wears glasses Home Medications Therems-M 1 tab PO DAILY 12/30/13 [History Last Taken 05/03/21] aspirin 81 mg PO DAILY@0800 12/30/13 [History Last Taken 05/04/21] metoprolol tartrate 50 mg PO BID 12/30/13 [History Last Taken 05/12/21 05:15 50 mg] simvastatin 40 mg PO QHS 12/30/13 [History Last Taken 05/03/21] cholecalciferol (vitamin D3) 5,000 unit PO DAILY 04/22/18 [History Last Taken 05/04/21] acetaminophen 1,000 mg PO Q8H PRN PRN tablet 05/13/18 [Rx Last Taken 05/04/21] lithium carbonate 150 mg PO BID 05/04/21 [History Last Taken 05/04/21] trazodone 100 mg PO QHS 05/04/21 [History Last Taken 05/03/21] venlafaxine [Effexor XR] 75 mg PO DAILY 05/04/21 [History Last Taken 05/04/21] warfarin 2.5 mg PO QODAY@1630 05/04/21 [History Last Taken 05/04/21] warfarin 3 mg PO QODAY@1630 05/04/21 [History Last Taken 05/03/21] oxycodone-acetaminophen 1 tab PO Q6H PRN 14 Days #4 tab 05/05/21 [Rx Last Taken 05/04/21] oxycodone-acetaminophen 2 tab PO Q8H PRN PRN 7 Days #20 tab 05/05/21 [Rx Last Taken Unknown] cephalexin 500 mg PO Q12 3 Days #6 capsule 05/12/21 [Rx Last Taken Unknown] phenazopyridine 100 mg PO TID #30 tablet 05/12/21 [Rx Last Taken Unknown] Allergy/AdvReac Type Severity Reaction Status Date / Time diphenhydramine Allergy Rash Verified 05/10/21 09:28 [From Benadryl] Surgical History History of appendectomy S/P hysterectomy Social History adopted: No household members: children housing: house number of children: 2 (one ) current occupational status: retired Smoking Status: Never smoker ROS Constitutional Constitutional: Reports frequent falls; Denies fever(s), headache(s) or increased appetite Eyes Eyes: Denies change in vision ENT HEENT: Denies change in voice, headache(s), loss taste/smell or mouth lesions Cardiovascular Cardiovascular: Denies chest pain or dyspnea Respiratory/Chest Respiratory/Chest: Denies chest tightness or cough Gastrointestinal Gastrointestinal: Reports abdominal pain; Denies change in bowel habits, change in stool character, dysphagia, nausea or taste impaired Genitourinary Genitourinary: Reports abdominal discomfort, low back pain, urinary frequency, urinary incontinence and urinary urgency Musculoskeletal Musculoskeletal: Reports joint pain Integumentary Integumentary: Denies pruritus, rash, skin pain or skin ulcer Neurologic Neurologic: Reports frequent falls Psychiatric Psychiatric: Reports systems reviewed and no addt'l complaints, except as documented Hematologic/Lymphatic Hematologic/Lymphatic: Denies easy bleeding or easy bruising Vital Signs Vital Signs Vital Signs: 05/12/21 06:20 Temperature 96.5 F L Temperature Source Temporal Pulse Rate 51 L Respiratory Rate 14 Respiratory Pattern Irregular Blood Pressure 149/48 H Blood Pressure Mean 81 Blood Pressure Source Monitor Blood Pressure Position Supine Blood Pressure Location Left Arm Pulse Ox 94 Oxygen Delivery Method Room Air Weight Weight: 65.4 kg Body Mass Index (BMI) 28.1 Physical Exam Const alert, oriented x3 and no apparent distress General Appearance: cooperative and comfortable HEENT normocephalic, head/scalp atraumatic, hearing grossly normal bilaterally, external ears normal, external nose normal and moist oral mucous membranes Eyes conjunctivae normal Neck supple General: trachea midline Lymph Lymphatic: no lymphedema noted Chest inspection of chest normal Chest: symmetrical chest wall rise Resp normal respiratory effort, normal air movement, no retractions and no use of accessory muscles Cardio regular rate external exam normal Back/Spine no CVA tenderness Extremity normal to inspection Skin no rashes or lesions noted, no wounds, skin turgor normal, no jaundice, no petechiae and no mottling Neuro oriented x3, CN's II-XII intact bilaterally and moves all extremities Psych mental status grossly normal, cooperative, affect normal and speech normal Results Lab / Micro Data Labs: Laboratory Results - last 24 hr 05/12/21 06:20: POC PT 12.8, INR 1.1 Assessment & Plan Assessment/Plan (1) Left renal stone: PLAN: Left renal extracorporal shockwave lithotripsy, cystoscopy with left ureteral stent insertion Procedure Criteria Type of Procedure Procedure Type: Elective Elective Risks - COVID COVID Risk Discussion: The surgeon/proceduralist and patient have discussed in detail the risk of exposure to and/or potential harm posed by the COVID-19 virus with having a surgery/procedure at this time versus the risk of delaying the surgery/procedure. It is not possible to know either the risk of delaying the surgery or procedure or chance of getting an infection with perfect accuracy, but a joint decision was made between the patient and the surgeon/proceduralist to proceed at this time with the scheduled surgery/procedure as indicated on the consent form.
== END 2021-05-12 11:17 | disposition home or self-care (01) ==
LOC: SDC 06:00 → AC 06:09
PROVIDERS: PCP Internal Medicine; Referring Provider Urology; Visit Provider Urology
PROC: (CPT 50590; principal; 2021-05-12 07:20)
DX: N20.0 Calculus of kidney (principal); I10 Essential (primary) hypertension; E11.9 Type 2 diabetes mellitus without complications; E78.00 Pure hypercholesterolemia, unspecified; F31.9 Bipolar disorder, unspecified; I25.10 Atherosclerotic heart disease of native coronary artery without angina pectoris; M06.9 Rheumatoid arthritis, unspecified; G89.29 Other chronic pain; M19.90 Unspecified osteoarthritis, unspecified site; Z78.0 Asymptomatic menopausal state; Z87.442 Personal history of urinary calculi; Z86.711 Personal history of pulmonary embolism; Z79.01 Long term (current) use of anticoagulants; Z79.82 Long term (current) use of aspirin; Z79.899 Other long term (current) drug therapy
CPT/HCPCS: 00873; 50590; 52332; 36416; 85610; J7120; C2625; J2405

== ENCOUNTER → 2021-05-23 14:37 | Outpatient (CLI) | payer MEDICARE, SELFPAY ==
[2021-05-12 06:20] VITALS: BMI 28.1
--- NOTE | 2021-05-23 14:40 | RAD_ITS ---
STUDY: X-RAY - ABDOMEN/PELVIS REASON FOR EXAM: Female, 86 years old. KIDNEY STONE TECHNIQUE: Single AP view of the abdomen / pelvis. COMPARISON: Comparison is made with prior study dated 05/15/2018. FINDINGS: There is a moderate amount of colonic fecal material. A left-sided double-J stent catheter is seen with the proximal tip in the region of the left renal pelvis and distal tip in the bladder. Tiny left intrarenal calculi are seen. Normal soft tissue structures. There are diffuse degenerative changes of the visualized lumbar spine. Mild levoscoliosis. RAD/Abdomen Single View IMPRESSION: Tiny nonobstructive left intrarenal calculi. Left-sided double-J stent catheter with the proximal tip in the renal pelvis or proximal portion of the aorta. Electronically Signed: Tyrone Jackson MD at 14:57 EDT , Service support ,
== END ==
PROVIDERS: PCP Internal Medicine; Referring Provider Urology; Visit Provider Urology
DX: N20.1 Calculus of ureter (principal); R10.9 Unspecified abdominal pain
CPT/HCPCS: 74018

== ENCOUNTER → 2021-07-04 13:22 | Outpatient (CLI) | payer MEDICARE, SELFPAY ==
--- NOTE | 2021-07-04 13:30 | SP.MBSS_ITS ---
Modified Barium Swallow - Patient Information Study Date: 07/04/21 Study Time: 13:30 Direct Billable Minutes: 120 Total Minutes procedure & reportin Diagnosis: Calculus of kidney N20.0 Referring Physician: Clara Suazo Reason for Referral: Per order receievd ST to order MBS/VFSS to determine least restrictive and safest diet, swallow strategies, exercises and to rule out aspiration of thin liquids. Patient reports sensation of food/pills getting stuck, not going down, resulting in coughing/choking w/ expectoration of phlegm; additionally reports coughing when lying flat at night after taking medications. Medical History: Arthritis; Bipolar disorder; Chronic pain; Coronary artery disease; Depression; Diabetes; Difficulty chewing; Difficulty swallowing; Easy bruising; High cholesterol; History of steroid therapy; History of stress test; Hypertension; Kidney stones; Left renal stone; Loose, teeth; Non-smoker; Post-menopausal; Pulmonary embolism; Rheumatoid arthritis - history obtained from review of [employer] records Dentition: Upper Dentures, Lower Dentures - patient reports dentures to be po amy fitting and dental implant causing pain w/ masticaiton Mental Status: WNL Respiratory Status: Oxygenating on Room Air - Penetration-Aspiration Scale Penetration-Aspiration Scale: OBJECTIVE ASSESSMENT OF SWALLOW FUNCTION (QUANTITATIVE ? PER TRIAL): PENETRATION / ASPIRATION SCALE (SOTO): 1 = does not enter airway 2 = enters airway/above vocal folds/ejected 3 = enters airway/above vocal folds/not ejected 4 = enters airway/contacts vocal folds/ejected 5 = enters airway/contacts vocal folds/not ejected 6 = enters airway/below vocal folds/ejected 7 = enters airway/below vocal folds/not ejected despite effort 8 = enters airway/below vocal folds/no effort VIDEOFLOROSCOPIC SCALE SCORE (SOTO): Grade I = aspiration of material that has penetrated into the laryngeal vestibule, intact cough reflex Grade II = aspiration < 10 % of the bolus, intact cough reflex Grade III = aspiration of < 10 % of the bolus, reduced cough reflex or aspiration of > 10 % of the bolus, intact cough reflex Grade IV = aspiration of > 10 % of the bolus, reduced cough reflex - Penetration-Aspiration Scale Score Thin Liquid via teaspoon Result: 2= enter airway/above vocal folds/ejected Thin Liquid via small single sip from cup Result: 2= enter airway/above vocal folds/ejected Thin Liquid via sequential sips from cup Result: 2= enter airway/above vocal folds/ejected Thin Liquid via single sip from straw Result: 2= enter airway/above vocal folds/ejected Pudding Result: 1= does not enter airway Cookie + esophageal screen for bolus clearance Result: 1= does not enter airway Thin Liquid via small single sip from cup Trial 2 Result: 2= enter airway/above vocal folds/ejected - Oral Phase Labial Seal: Interlabial escape, no progression to anterior lip Tongue Control During Bolus Hold: Escape to lateral buccal cavity/floor of mouth Bolus Preparation/Mastication: Slow prolonged chewing/mashing with complete recollection Bolus Transport/Lingual Motion: Repetitive/disorganized tongue motion Oral Residue: Trace residue lining oral structures - Pharyngeal Phase Initiation of Pharyngeal Swallow: Bolus head at posterior laryngeal surgace of epiglottis Soft Palate Elevation: No bolus between soft palate and pharyngeal wall Laryngeal Elevation: Partial superior movement thyroid cart/partial apprx aryt- epig petiole Anterior Hyoid Excursion: Partial anterior movement Epiglottic Movement: Complete inversion Laryngeal Vestibule Closure at Height of Swallow: Incomplete; narrow column of air/contrast in laryngeal vestibule Pharyngeal Stripping Wave: Present - complete Pharyngoesophageal Segment Opening: Parital distension and partial duration; parital obstruction of flow Tongue Base Retraction: Narrow column of contrast between tongue base & post. pharyngeal wall Pharyngeal Residue: Collection of residue within or on pharyngeal structures - Esophageal Phase Esophageal Clearance: Esophageal retention w/ retrograde flow through pharyngoesophageal seg - Treatment Strategies Effects of treatment strategies attemped:: double swallow = effective liquid wash = effective - Diagnosis/Impression Diagnosis: mild oropharyngeal and pharyngoesophageal dysphagia Impression: Swallow function is characterized by: * prolonged oral preparation w/ slowed mastication * liquid bolus loss to the floor of mouth * delayed swallow onset timing w/ suboptimal bolus location upon onset * prandial laryngeal vestibule penetration of thin liquids only d/t suboptimal bolus location upon swallow onset coupled w/ insufficient arytenoid to epiglottic petiole contact * penetration did not contact the vocal folds and ejected w/ swallow completion * reduced tongue base retraction w/ residue retention post deglutition * able to clear tongue base residue w/ dry second swallow, although difficulty for patient to volitionally elicit dry swallow * liquid wash also effective to reduce post-prandial base of tongue residue * reduced PES distention * noted prominent cricopharyngeal bar at the C5-6 level which impeded bolus flow; trace retrograde bolus flow noted from below CP bar w/ return to pyriforms * screening of esophagus for bolus clearance revealed esophageal retention w/ poor contraction/clearance * GI referral to further assess cricopharyngeus and esophageal motility is recommended, as these are likely the primary factors contributing to this patient's reported dysphagia w/ solid textures/pills and frequent cough when lying flat - Recommendations Comment: Soft and Bite Sized Textures/Thin Liquids * consider finely chopping solid textures that are known to cause difficulty * consider using extra sauce/gravy to moisten dry items * take small bites, chew thoroughly * follow each bite w/ a liquid wash (small sip) * sit upright for all intake * remain upright for 30-60 minutes after meals and medications before laying down/reclining to reduce risk of retrograde bolus flow/reflux/aspiration Recommend Repeat Modified Barium Swallow: No Need for Skilled Speech Therapy Services: Yes Comment: This patient requires intensive skilled speech-language intervention targeting: * continued diet texture management * training and implementation of recommended compensatory strategies * training and implementation of recommended oropharyngeal strengthening exercises to facilitate improved lingual control/strength,base of tongue retraction, arytenoid to epiglottic petiole contact and swallow onset timing - consider the following exercises - tongue strengthening against resistance, effortful swallow, clarita, gargle, yawn, rachael maneuver Recommended Referrals: GI Consult - to further assess cricopharyngeus and esophageal motility, Dental Evaluation - poor denture fit, dental prosthesis causing pain w/ mastication Education Completed: 1. Described result of evaluation., 2. Pt understands evaluation & agrees with goals and treatment plan., 4. Family/caregivers understand evaluation & agree w/ goals & tx plan. Comment: Images were reviewed w/ the patient and her son, Christiano, immediately following MBS conclusion. Extended time was spent providing education re: anatomy/physiology of swallow function and of deficits in oropharyngeal and pharyngoesophageal swallow function that were identified. Results, recommendation (including thorough review of diet texture modification and compensatory strategy use) and recommended referrals - GI, Dental - were discussed. Encouraged to continue home health speech therapy to address deficits in oropharyngeal swallow function identified under fluoroscopy and for reinforcement of recommendations made as a result of this MBS. Education was well received w/ the patient and her son verbalizing understanding of all information shared. All questions were answered to their satisfaction. - Status Active ST Patient: Active
== END ==
PROVIDERS: PCP Internal Medicine; Referring Provider Internal Medicine; Visit Provider Internal Medicine
DX: R09.89 Other specified symptoms and signs involving the circulatory and respiratory systems (principal); R05 Cough
CPT/HCPCS: 74230; 92611

== ENCOUNTER 2021-09-12 13:44 | Day surgery (SDC) | payer MEDICARE, SELFPAY ==
[2021-09-12] VITALS (7 sets, daily range): BP systolic 140–169; BP diastolic 55–66; PULSE 51–55; RESP 16; TEMP 36–36.6; O2SAT 97–100; BMI 26.9
[2021-09-12] MEDS: Lactated Ringers 1,000 ML 15 ML IV (14:30)
[2021-09-12 14:54] LABS: International Normalized Ratio 1.2; Prothrombin Time (Protime)PT. 14.1 SECONDS (11.7-14.9)
--- NOTE | 2021-09-12 15:00 | EGD_PTH ---
PATIENT: Jeanne PRASAD LOC: EN U#:[id number] AGE/SX: 86/F ROOM: RE09/12/[address]: Dr. Enrique Robb DO : 1935 BED: DIS: 09/12/2021 SPEC #: [id number] RECD: 09/12/21 18:49 STATUS: GABRIEL PRADEEP #: [id number] LUIS: 09/12/21 15:[address]: Enrique Robb DEPT: SURGICAL PATHOLOGY RECD BY: Landy Palacios ENTERED: 09/13/21 12:59 SP TYPE: EGD BIOPSY BEREKET DR: Dr. Clara Suazo DO Tissues: Esophagus, NOS Procedures: Special Stain Group II Surgery Specimen Level IV Alcian Blue/PAS (control) HEADER OPERATION: EGD ([facility]) PRE-OP DIAGNOSIS: Dysphagia TISSUE SUBMITTED: Distal esophagus biopsy MICROSCOPIC DIAGNOSIS Distal esophagus, biopsy: Consistent with changes of reflux. Gastroesophageal junctional mucosa with chronic inflammation. No evidence of goblet cell metaplasia. See comment. AM:davon 09/14/2021 COMMENT Alcian blue/PAS stain with matched control supports the above diagnosis. MICROSCOPIC DESCRIPTION Slides are reviewed. GROSS DESCRIPTION Received in fixative is one container labeled with the patient's name and designated distal esophagus. The specimen consists of multiple irregular fragments of light nicholson soft tissue that in aggregate measure 2 x 1 x 0.1 cm. The specimen is totally submitted in one cassette. / AM:davon 09/13/21 TC:3 CPT: 59838, 32626
--- NOTE | 2021-09-12 15:34 | PCM.HP.BLA ---
History and Physical Date of Admission: 09/12/21 Therems-M 1 tab PO DAILY 12/30/13 [History Confirmed 08/24/21] metoprolol tartrate 50 mg PO BID 12/30/13 [History Confirmed 08/24/21] simvastatin 40 mg PO QHS 12/30/13 [History Confirmed 08/24/21] cholecalciferol (vitamin D3) 5,000 unit PO DAILY 04/22/18 [History Confirmed 08/24/21] acetaminophen 1,000 mg PO Q8H PRN PRN tablet 05/13/18 [Rx Confirmed 08/24/21] lithium carbonate 150 mg PO BID 05/04/21 [History Confirmed 08/24/21] trazodone 100 mg PO QHS 05/04/21 [History Confirmed 08/24/21] venlafaxine [Effexor XR] 75 mg PO DAILY 05/04/21 [History Confirmed 08/24/21] warfarin 2.5 mg PO QODAY@1630 05/04/21 [History Confirmed 08/24/21] warfarin 3 mg PO QODAY@1630 05/04/21 [History Confirmed 08/24/21] phenazopyridine 100 mg PO TID #30 tablet 05/12/21 [Rx] sulfamethoxazole 800 mg-trimethoprim 160 mg tablet 0.5 tab PO BID tab 08/24/21 [History Confirmed 08/24/21] [facility] Medical History (Updated 08/24/21 @ 16:[address] Nunez Friend, DO) Arthritis Bipolar disorder Chronic pain Coronary artery disease Depression Diabetes Difficulty chewing Difficulty swallowing Dysphagia Easy bruising High cholesterol History of steroid therapy History of stress test Hypertension Kidney stones Left renal stone Loose, teeth Non-smoker Post-menopausal Pulmonary embolism Rheumatoid arthritis Walker as ambulation aid Wears dentures Wears glasses Surgical History History of appendectomy S/P hysterectomy Social History adopted: No household members: children housing: house number of children: 2 (one ) current occupational status: retired Smoking Status: Never smoker HPI HPI Details: Jeanne PRASAD, is a 86 F who presents to the office today for She has been having increased difficulty with swallowing for the last six months. Difficulty with food, liquids and pills. She dips all of her food in coffee to make it soft enough to swallow. Sometimes food gets stuck, but states this is alleviated by softening her food. She often feels the need to cough and then a lot of phlegm comes out. Last EGD many years ago. She does not know the results of the EGD. She uses Miralax and grape juice to help with constipation and this regimen is helpful to her. ROS Const Constitutional: Positive for weakness ENT ENT: Positive for nasal congestion and difficulty swallowing Resp Respiratory: Positive for wheezing Cardio Cardiology: Positive for leg pain with exertion and shortness of breath Gastro GI: Positive for change in bowel habits, constipation and difficulty swallowing Genitourinary-Female: Positive for urinary incontinence, urinary frequency and urinary urgency Musc Musculoskeletal: Positive for abnormal gait, joint pain, back pain, muscle weakness, numbness, stiffness, tingling, Arthritis, sciatica, restless legs, leg pain at night and leg pain with exertion Neuro Neurology: Positive for abnormal gait, weakness, numbness, tingling, restless legs and tremor(s) Endo Endocrine: Positive for increased urine leakage Aller/Imm Allergy/Immunologic: Positive for wheezing Shant/Lymp Hematologic/Lymphatic: Positive for easy bruising Exam Const General: cooperative and comfortable Nutritional Appearance: average body habitus and well nourished [facility] Head: normal to inspection Ears: hearing grossly normal bilaterally Nose: external nose normal Face and sinus: normal facial exam Mouth: oral mucosae normal Throat: posterior oropharynx normal Eyes General: appearance normal, both eyes and all related structures Neck Neck: normal visual inspection Chest Chest palpation & inspection: normal inspection of the chest and normal palpation of entire chest wall Resp Effort & Inspection: normal respiratory effort Auscultation: Bilateral: Clear to Auscultation Cardio Palpation: normal PMI Rate: regular rate Rhythm: regular rhythm GI Inspection: normal to inspection Auscultation: normal bowel sounds Percussion: normal to percussion Palpation: no hepatosplenomegaly Skin General: no rashes or lesions noted Neuro General: patient alert Extrem General: normal to inspection Psych Affect: normal affect Quality Reporting Tobacco Screening ([facility] 138) Smoking Status: Never smoker Assessment and Plan Assessment and Plan (1) Dysphagia: Status: Acute Plan - Dr. Nunez Friend, DO: We will perform an upper endoscopy to evaluate her upper GI tract. The differential diagnosis would include sliding hiatal hernia, paraesophageal hernia, esophageal ring, esophageal stricture. Her and her brother were explained alternatives, risk, benefits including not withstanding bleeding, infection, sepsis, perforation, need emergent . She will have an ASA of 3. This is an updated H&P from the patient was seen in office.
--- NOTE | 2021-09-12 16:05 | OP.EGD_ITS ---
Patient Name: Jeanne Gage Procedure Date: 09/12/2021 3:40 PM Date of : 1935 Age: 86 Procedure: Upper GI endoscopy Indications: Dysphagia Providers: Enrique Robb DO Medicines: See the Anesthesia note for documentation of the administered medications Patient Profile: This is an 86 year old female. Refer to note in patient chart for documentation of history and physical. Patient has symptoms of chronic dysphagia and dysphagia with both liquids and solids. The symptoms first began April. She is status post EGD for dilation three years ago. Complications: No immediate complications. Procedure: Pre-Anesthesia Assessment: - Prior to the procedure, a History and Physical was performed, and patient medications and allergies were reviewed. The risks and benefits of the procedure and the sedation options and risks were discussed with the patient. All questions were answered and informed consent was obtained. Patient identification and proposed procedure were verified by the physician in the pre-procedure area. Mental Status Examination: alert and oriented. Airway Examination: normal oropharyngeal airway and neck mobility. Respiratory Examination: clear to auscultation. CV Examination: normal. Prophylactic Antibiotics: The patient does not require prophylactic antibiotics. Prior Anticoagulants: The patient has taken no previous anticoagulant or antiplatelet agents. After reviewing the risks and benefits, the patient was deemed in satisfactory condition to undergo the procedure. The anesthesia plan was to use moderate sedation / analgesia (conscious sedation). Immediately prior to administration of medications, the patient was re-assessed for adequacy to receive sedatives. The heart rate, respiratory rate, oxygen saturations, blood pressure, adequacy of pulmonary ventilation, and response to care were monitored throughout the procedure. The physical status of the patient was re-assessed after the procedure. After obtaining informed consent, the endoscope was passed under direct vision. Throughout the procedure, the patient's blood pressure, pulse, and oxygen saturations were monitored continuously. The Endoscope was introduced through the mouth, and advanced to the second part of duodenum. The upper GI endoscopy was accomplished without difficulty. The patient tolerated the procedure well. Moderate Sedation: Moderate (conscious) sedation was administered by the endoscopy nurse and supervised by the endoscopist. The patient's oxygen saturation, heart rate, blood pressure and response to care were monitored. Total physician intraservice time was 15 minutes. Scope In: 3:47:52 PM Scope Out: 3:59:04 PM Total Procedure Duration Time 0 hours 11 minutes 12 seconds Findings: LA Grade A (one or more mucosal breaks less than 5 mm, not extending between tops of 2 mucosal folds) esophagitis with no bleeding was found 34 to 35 cm from the incisors. Biopsies were taken with a cold forceps for histology. Verification of patient identification for the specimen was done. Estimated blood loss was minimal. A medium-sized hiatal hernia was present. A severe Schatzki ring was found in the lower third of the esophagus. A guidewire was placed and the scope was withdrawn. Dilation was performed with a Savary dilator with no resistance at 54 Fr. Biopsies were taken with a cold forceps for histology. Verification of patient identification for the specimen was done. Estimated blood loss was minimal. The entire examined stomach was normal. Patchy mild inflammation characterized by erosions was found in the ampulla. Impression: - LA Grade A reflux esophagitis. Rule out Ivan's esophagus. Biopsied. - Medium-sized hiatal hernia. - Severe Schatzki ring. Dilated. Biopsied. - Normal stomach. - Duodenitis. Recommendation: - Discharge patient to home. - Resume previous diet. - Use Protonix (pantoprazole) 40 mg PO BID for 8 weeks. - Continue present medications. Procedure Code(s): --- Professional --- 24766, Esophagogastroduodenoscopy, flexible, transoral; with insertion of guide wire followed by passage of dilator(s) through esophagus over guide wire 63730, 59, Esophagogastroduodenoscopy, flexible, transoral; with biopsy, single or multiple G0500, Moderate sedation services provided by the same physician or other qualified health manager long term care performing a gastrointestinal endoscopic service that sedation supports, requiring the presence of an independent trained observer to assist in the monitoring of the patient's level of consciousness and physiological status; initial 15 minutes of intra-service time; patient age 5 years or older (additional time may be reported with 81182, as appropriate) Diagnosis Code(s): --- Professional --- K21.0, Gastro-esophageal reflux disease with esophagitis K44.9, Diaphragmatic hernia without obstruction or gangrene K22.2, Esophageal obstruction K29.80, Duodenitis without bleeding R13.10, Dysphagia, unspecified CPT copyright 2017 [employer]. All rights reserved. The codes documented in this report are preliminary and upon spine supervisor review may be revised to meet current compliance requirements. Enrique Robb DO 09/12/2021 4:04:44 PM This report has been signed electronically. Number of Addenda: 1 Note Initiated On: 09/12/2021 3:40 PM Addendum Number: 1 Addendum Date: 06/29/2022 6:24:46 AM MAC was used instead of moderate sedation for this patient. Enrique Robb DO 06/29/2022 6:24:50 AM This report has been signed electronically.
--- NOTE | 2021-09-12 16:06 | OP.CCLET_ITS ---
06/29/2022 Clara Suazo [address] [place] [address] Re : Upper GI endoscopy procedure for Jeanne Gage Dear Dr. Suazo This procedure was performed on Sunday, September 12, 2021. My impressions and recommendations are as follows: Impressions : - LA Grade A reflux esophagitis. Rule out Ivan's esophagus. Biopsied. - Medium-sized hiatal hernia. - Severe Schatzki ring. Dilated. Biopsied. - Normal stomach. - Duodenitis. Recommendations : - Discharge patient to home. - Resume previous diet. - Use Protonix (pantoprazole) 40 mg PO BID for 8 weeks. - Continue present medications. My findings are described in the full procedure note, which is enclosed. If I can be of further assistance, please feel free to contact me at . Sincerely, Enrique Friend, 09/12/2021 4:04:44 PM This report has been signed electronically.
--- NOTE | 2021-09-12 16:14 | SUR.PHASEI ---
Patient coughed up clear sputum in PACU.
== END 2021-09-12 17:04 ==
LOC: EN 13:50 → AC 14:03
PROVIDERS: PCP Internal Medicine; Referring Provider Internal Medicine; Visit Provider Internal Medicine Gastroenterology
PROC: 0DJ08ZZ Inspection of Upper Intestinal Tract, Via Natural or Artificial Opening Endoscopic (ICD-10-PCS; CPT 43235; principal; 2021-09-12 14:55)
DX: K21.00 Gastro-esophageal reflux disease with esophagitis, without bleeding (principal); K22.2 Esophageal obstruction; K29.80 Duodenitis without bleeding; K44.9 Diaphragmatic hernia without obstruction or gangrene; I10 Essential (primary) hypertension; F31.9 Bipolar disorder, unspecified; G89.29 Other chronic pain; I25.10 Atherosclerotic heart disease of native coronary artery without angina pectoris; M06.9 Rheumatoid arthritis, unspecified; E11.9 Type 2 diabetes mellitus without complications; E78.00 Pure hypercholesterolemia, unspecified; Z87.442 Personal history of urinary calculi; Z86.711 Personal history of pulmonary embolism; Z79.01 Long term (current) use of anticoagulants; Z79.899 Other long term (current) drug therapy
CPT/HCPCS: 43239; 43248; 85610; 88305; 88313; J7120

== ENCOUNTER 2021-11-24 10:46 | Outpatient (CLI) | payer MEDICARE, SELFPAY ==
--- NOTE | 2021-11-24 11:30 | MRI_ITS ---
STUDY: MRI RIGHT SHOULDER REASON FOR EXAM: Right shoulder and arm pain for over a year. TECHNIQUE: Standardized fat and water weighted pulse sequences were obtained in all 3 orthogonal planes. COMPARISON: MRI images 01/11/2017. FINDINGS: There is supraspinatus tendinosis and a small linear intermediate grade partial-thickness tear of the articular surface of the supraspinatus tendon (T2 coronal image 12). There is infraspinatus tendinosis (T2 coronal image 9) without discrete tendon tear. Normal subscapularis tendon. Normal teres minor tendon. Normal supraspinatus muscle. Normal infraspinatus muscle. Normal subscapularis muscle. Normal teres minor muscle. There is advanced glenohumeral arthrosis with marginal osteophytes of the humeral head, chondral loss, and subchondral cystic change/bone edema of the humeral head and glenoid (T2 coronal images 9-13). There is an intra-articular body in the subscapularis recess (T2 axial image 12) measuring 1.3 cm in AP dimension and a smaller intra-articular body in the posterior aspect of the glenohumeral joint (T2 coronal image 5). Normal intracapsular long biceps tendon. There is diffuse tear/degeneration of the labrum. Normal capsulo- ligamentous complex. There is acromioclavicular arthrosis without substantial undersurface osteophytes (T2 sagittal image 10). There is a Type I morphology (flat undersurface), with a neutral orientation. There is subacromial-subdeltoid bursal fluid. Normal visualized coracohumeral and coracoacromial ligaments. Normal quadrilateral space. Normal axillary space. Normal deltoid muscle. Normal trapezius muscle. MRI/Upper Ext Joint Only(Routine) IMPRESSION: Small partial-thickness tear and tendinosis of the supraspinatus tendon. Infraspinatus tendinosis. Advanced glenohumeral arthrosis with intra-articular bodies and tear/degeneration of the labrum. Acromioclavicular arthrosis. Subacromial-subdeltoid bursitis. Electronically Signed: Umang Bear MD at 13:27 EST ,
== END 2021-11-24 23:59 | disposition short-term general hospital (02) ==
LOC: MRI 10:51
PROVIDERS: PCP Internal Medicine; Referring Provider Internal Medicine; Visit Provider Internal Medicine
DX: M25.511 Pain in right shoulder (principal)
CPT/HCPCS: 73221

== ENCOUNTER 2021-12-16 15:13 | Emergency (ER) | payer MEDICARE, SELFPAY ==
[2021-12-16 15:14] VITALS: BP 193/72; PULSE 73; RESP 16; TEMP 36.9; O2SAT 97; BMI 26.9
--- NOTE | 2021-12-16 15:35 | EKG12_ITS ---
Test Reason : FALL Blood Pressure : / mmHG Vent. Rate : 070 BPM Atrial Rate : 070 BPM P-R Int : 154 ms QRS Dur : 078 ms QT Int : 392 ms P-R-T Axes : 049 059 044 degrees QTc Int : 423 ms Normal sinus rhythm Normal ECG Confirmed by SANGITA GARCIA, MAURICE ([id number]), medical transcription editor ORLIN KHANNA ([id number]) on 12/20/2021 12:36:00 P M Referred By: LOUISE Confirmed By:KWABENA QUESADA MD
--- NOTE | 2021-12-16 15:36 | CT_ITS ---
EXAM: CT CHEST, ABDOMEN AND PELVIS WITH INTRAVENOUS CONTRAST CLINICAL INDICATION: Trauma, right lateral abdominal bruising TECHNIQUE: Helically acquired images were obtained of the chest, abdomen and pelvis with intravenous contrast. This CT exam was performed using one or more of the following dose reduction techniques: automated exposure control, adjustment of the mA and/or kV according to patient size, and/or use of iterative reconstruction technique. This report was created using [employer] report generation technology. CONTRAST: IV 100mL [id number]-370 COMPARISON: 05/04/2021. FINDINGS: CHEST: LUNGS AND PLEURAL SPACES: Unremarkable. No mass. No consolidation or edema. No pleural effusion or thickening. No pneumothorax. HEART: Mitral valve calcifications. Heart size is normal. No pericardial effusion. No significant coronary artery calcifications. MEDIASTINUM: Small hiatal hernia. No mediastinal or hilar adenopathy. Esophagus is unremarkable. THYROID: Unremarkable. No thyroid lesions. ABDOMEN: LIVER: Simple hepatic cyst. No required imaging follow-up needed given high likelihood of benign nature. Capsular retraction of the right hepatic lobe is stable. GALLBLADDER AND BILE DUCTS: Unremarkable. No calcified gallstones. No gallbladder distention or wall edema. No intra- or extrahepatic biliary ductal dilation. PANCREAS: Unremarkable. No focal cystic or solid mass. SPLEEN: Unremarkable. Normal size without focal cystic or solid mass. ADRENALS: Unremarkable. No nodules. KIDNEYS AND URETERS: Simple left renal cyst. No required imaging follow-up needed given high likelihood of benign nature. Normal renal size and position. No hydronephrosis. STOMACH AND BOWEL: Unremarkable. No stomach or bowel distention. No focal inflammatory change. PELVIS: APPENDIX: No evidence of acute appendicitis. BLADDER: Tiny locule of air in the urinary bladder may be related to recent catheterization. REPRODUCTIVE: Hysterectomy. No mass. CHEST, ABDOMEN and PELVIS: INTRAPERITONEAL SPACE: Unremarkable. No ascites or other fluid collection. No free air. BONES/JOINTS: Nondisplaced right 10th and 11th posterior rib fractures. Degenerative changes of the right or the left shoulder. No suspicious lytic or blastic abnormality. SOFT TISSUES: Soft tissue induration of the right posterolateral adipose tissue likely representing contusion. No discrete abdominal or pelvic wall hernia. VASCULATURE: Atherosclerosis of the thoracic aorta and abdominal aorta. Coronary artery atherosclerosis. Aorta is non-dilated. No aortic dissection. No obvious central pulmonary embolism although this study was not performed with the pulmonary embolism protocol. LYMPH NODES: Unremarkable. No enlarged lymph nodes. CT/CT Chest, Abd, Pel w/Contrast IMPRESSION: 1. Soft tissue induration of the right posterolateral flank adipose tissue likely representing contusion. 2. Nondisplaced right 10th and 11th posterior rib fractures. Electronically Signed: Shaun Byrd MD ([place]) at 17:04 EST Reading Location ID and State: [facility] / [place] , Service support ,
--- NOTE | 2021-12-16 15:36 | CT_ITS ---
EXAM: CT CERVICAL SPINE WITHOUT INTRAVENOUS CONTRAST CLINICAL INDICATION: Trauma TECHNIQUE: Helically acquired images were obtained of the cervical spine without intravenous contrast. 2D reformatted images were reviewed. This CT exam was performed using one or more of the following dose reduction techniques: automated exposure control, adjustment of the mA and/or kV according to patient size, and/or use of iterative reconstruction technique. This report was created using [employer] report [employer] technology. COMPARISON: None. FINDINGS: VERTEBRAE: Unremarkable. No fracture. No traumatic subluxation. No discrete lytic or blastic abnormality. Normal alignment. Normal craniocervical junction and cervicothoracic junction. DISCS/SPINAL CANAL/NEURAL FORAMINA: Disc space narrowing at C4-C5, C5-C6 and C6-C7. SOFT TISSUES: Unremarkable. No prevertebral soft tissue swelling. VASCULATURE: Atherosclerosis of the carotid arteries. LYMPH NODES: Unremarkable. No cervical adenopathy. LUNG APICES: Unremarkable as visualized. Clear. OTHER FINDINGS: Left mid cervical facet arthropathy. CT/Spine Cervical without Contras IMPRESSION: No acute findings in the cervical spine. Electronically Signed: Shaun Byrd MD ([place]) at 16:59 EST Reading Location ID and State: [facility] / [place] , Service support ,
--- NOTE | 2021-12-16 15:36 | CT_ITS ---
STUDY: CT BRAIN WITHOUT CONTRAST REASON FOR EXAM: Female, 86 years old. Trauma RADIATION DOSAGE (If Supplied By Facility): CTDIvol = ( 47.06 ) mGy, DLP = ( 837.39 ) mGycm TECHNIQUE: Transaxial CT imaging of the brain was performed without administration of intravenous contrast material. Individualized dose optimization techniques were used for this CT. COMPARISON: 02/10/2018 FINDINGS: Normal soft tissue structures. Normal calvarium. There is mild cerebral atrophy with widening of the extra-axial spaces and ventricular dilatation. There are areas of decreased attenuation within the white matter tracts of the supratentorial brain, consistent with microvascular disease changes. Localized soft malacia/scoliosis of the right frontal lobe is stable since 2018. Normal basal ganglia and thalami. Normal brainstem. Normal cerebellum. There is no intracranial hemorrhage. There are no findings of an acute ischemic infarction. Normal visualized paranasal sinuses. CT/Brain/Head without Contrast IMPRESSION: No acute intracranial hemorrhage or mass effect. Electronically Signed: Shaun Byrd MD ([place]) at 16:57 EST ,
--- NOTE | 2021-12-16 15:40 | ED.VIS.FALL ---
HPI HPI - Fall History of Present Illness Chief Complaint: Fall Informant: patient Occured/Mechanism Occurred: Days (3) Mechanism/Context: Yes same level fall Usually ambulates: Walker Pain/Injury Pain Location: head, neck, abdomen and back Quality of Pain: Aching and Stabbing Worsened by: Nothing Relieved by: Tramadol Associated Symptoms Associated Symptoms: Negative for Parasthesias, Weakness, Loss of function, Inability to ambulate and Loss of consciousness Narrative Narrative: Patient presents after a fall 3 days ago. Patient has neuropathy in her feet and lost her balance. Patient hit the back of her head. Patient denies any loss of consciousness. Patient complains of pain in her neck and back as well as her head. Patient describes the pain is aching and stabbing. Patient has been taking tramadol which has been helping. Patient denies any new paresthesias or weakness. Patient states she has a history of neuropathy. Patient is unsure of her last tetanus. Patient went to urgent care today where they noted some blood in her urine. Patient states they were referred to the emergency department for possible internal bleeding. [facility] Medical History Arthritis Bipolar disorder Chronic pain Coronary artery disease Depression Diabetes Difficulty chewing Difficulty swallowing Dysphagia Easy bruising High cholesterol History of steroid therapy History of stress test Hypertension Kidney stones Left renal stone Loose, teeth Non-smoker Post-menopausal Pulmonary embolism Rheumatoid arthritis Walker as ambulation aid Wears dentures Wears glasses Home Medications metoprolol tartrate 50 mg PO BID 12/30/13 [History Last Taken 09/12/21 10:00] simvastatin 40 mg PO QHS 12/30/13 [History Last Taken 05/03/21] cholecalciferol (vitamin D3) 5,000 unit PO DAILY 04/22/18 [History Last Taken 05/04/21] acetaminophen 1,000 mg PO Q8H PRN PRN tablet 05/13/18 [Rx Last Taken 05/04/21] lithium carbonate 150 mg PO BID 05/04/21 [History Last Taken 09/12/21 10:00] trazodone 100 mg PO QHS 05/04/21 [History Last Taken 05/03/21] venlafaxine [Effexor XR] 75 mg PO 1500 05/04/21 [History Last Taken 05/04/21] warfarin 4 mg PO DAILY 09/11/21 [History Last Taken 09/08/21] pantoprazole 40 mg tablet,delayed release 40 mg PO DAILY #30 tab 10/06/21 [Rx Last Taken Unknown] Allergy/AdvReac Type Severity Reaction Status Date / Time diphenhydramine Allergy Rash Verified 12/16/21 15:14 [From Benadryl] Surgical History History of appendectomy History of cystoscopy S/P hysterectomy Social History adopted: No household members: children housing: house number of children: 2 (one ) current occupational status: retired Smoking Status: Never smoker ROS ROS ED Constitutional Constitutional ED: Denies chills or fever(s) Eyes Eyes: Denies blurry vision or change in vision ENT ENT ED: Reports rhinorrhea; Denies sore throat Cardiovascular Cardiovascular: Denies chest pain or palpitations Respiratory/Chest Respiratory/Chest: Reports cough and sputum; Denies dyspnea Gastrointestinal Gastrointestinal: Reports nausea; Denies vomiting Genitourinary Genitourinary ED: Reports dysuria and hematuria Musculoskeletal Musculoskeletal: Reports back pain and neck pain Integumentary Denies abscess or rash Neurologic Neurologic: Reports headache(s); Denies weakness Allergic/Immunologic Allergic/Immunologic ED: Denies mouth swelling or urticaria EXAM Physical Exam Const Vital Signs: 12/16/21 15:14 12/16/21 15:26 12/16/21 17:15 Temperature 98.4 F Temperature Source Oral Pulse Rate 73 73 Respiratory Rate 16 13 Respiratory Effort Normal Non-Labored Respiratory Depth Normal Respiratory Pattern Normal Blood Pressure 193/72 H 189/71 H Blood Pressure Mean 112 110 Pulse Ox 97 100 Oxygen Delivery Method Room Air Room Air Room Air Positive well nourished and well developed General Appearance ED: well developed HEENT Reports normocephalic and moist mucous membranes HEENT Narrative: There is some mild tenderness over the occipital scalp and the cervical spine. There is no edema or ecchymosis. There is no bony crepitance or step-off. Neck supple and no JVD Resp normal respiratory effort and clear to auscultation bilaterally Cardio regular rate, regular rhythm and no murmurs GI normal to inspection, nondistended, normoactive bowel sounds GI Narrative: There is lower abdominal tenderness. There is no rebound or guarding noted. Inspection: Negative for abdominal distention Auscultation: normoactive bowel sounds Palpation: soft; Negative for guarding or rebound tenderness present Back/Spine Back/Spine Narrative: There is some edema and ecchymosis over the right upper thoracic paraspinal area over the lower portion of the right scapula. There is no bony crepitance or step-off. General Back: ecchymosis and tenderness Extremity normal to inspection General Extremety ED: Negative for edema or tenderness General Extremity: Negative for edema Neuro oriented x3, CN's II-XII intact bilaterally and no sensory deficits noted Sensorium / Orientation: alert Motor Exam: strength 5/5 throughout Psych mental status grossly normal Skin no rashes or lesions noted MDM MDM MDM Narrative Medical decision making narrative: Patient was given IV fluids and morphine here. CBC shows a mild leukocytosis of 12.3. INR was therapeutic at 2.0. Basic metabolic profile was within normal limits. Urinalysis shows occult blood of 250 with 5-[address] scan of the chest, abdomen, and pelvis was obtained. There is no acute intra-abdominal process noted. There is a small amount of air in the bladder due to recent catheter. There is some bruising in the right posterior lateral flank area. There are nondisplaced right 10th and 11th rib fractures. This was interpreted by the radiologist and reviewed by myself. CT scan of the brain was obtained. There is no acute intracranial abnormality. This was interpreted by the radiologist and reviewed by myself. CT scan of the cervical spine was obtained. There is no acute fracture or spondylolisthesis. This was interpreted by the radiologist and reviewed by myself. Patient is feeling better on reevaluation. Patient was advised of her findings. Patient was instructed to use ice to the area. Patient was instructed to take Tylenol as needed for pain. Patient was instructed to follow-up with her primary care physician in 5 to 7 days. Patient understood and was agreeable with the plan. All questions were answered. Lab Data Attestation: I reviewed the patient's lab results. Labs: Laboratory Results - last 24 hr 12/16/21 12/16/21 12/16/21 15:48 15:48 15:48 WBC 12.3 H RBC 4.81 Hgb 14.3 Hct 45.2 MCV 94.0 MCH 29.7 MCHC 31.6 L RDW Std Deviation 48.0 H RDW Coeff of Fidencio 13.7 Plt Count 229 MPV 9.7 Immature Gran % (Auto) 0.400 Neut % (Auto) 79.4 H Lymph % (Auto) 10.3 L [place] % (Auto) 7.7 Eos % (Auto) 1.7 Baso % (Auto) 0.5 Absolute Neuts (auto) 9.8 H Absolute Lymphs (auto) 1.26 Nucleated RBC % 0 PT 22.2 H INR 2.0 APTT 33.1 Sodium 141 Potassium 4.0 Chloride 106 Carbon Dioxide 28.0 Anion Gap 7 BUN 41 H Creatinine 0.91 Estim Creat Clear Calc 31.88 Est GFR (MDRD) Af Amer 75 Est GFR (MDRD) Non-Af 62 BUN/Creatinine Ratio 44.9 H Glucose 115 H Calcium 10.3 H Urine Color Urine Clarity Urine pH Ur Specific [place] Urine Protein Urine Glucose (UA) Urine Ketones Urine Occult Blood Urine Nitrite Urine Bilirubin Urine Urobilinogen Ur Leukocyte Esterase Urine RBC Urine WBC Ur Squamous Epith Cells Urine Bacteria Urine Mucus 12/16/21 16:50 WBC RBC Hgb Hct MCV MCH MCHC RDW Std Deviation RDW Coeff of Fidencio Plt Count MPV Immature Gran % (Auto) Neut % (Auto) Lymph % (Auto) [place] % (Auto) Eos % (Auto) Baso % (Auto) Absolute Neuts (auto) Absolute Lymphs (auto) Nucleated RBC % PT INR APTT Sodium Potassium Chloride Carbon Dioxide Anion Gap BUN Creatinine Estim Creat Clear Calc Est GFR (MDRD) Af Amer Est GFR (MDRD) Non-Af BUN/Creatinine Ratio Glucose Calcium Urine Color Yellow Urine Clarity Clear Urine pH 6.5 Ur Specific [place] 1.010 Urine Protein Negative Urine Glucose (UA) Normal Urine Ketones Negative Urine Occult Blood 250 H Urine Nitrite Negative Urine Bilirubin Negative Urine Urobilinogen Normal Ur Leukocyte Esterase Negative Urine RBC 5-10 SEEN Urine WBC 0 SEEN Ur Squamous Epith Cells 0 SEEN Urine Bacteria 0 SEEN Urine Mucus 0 SEEN Radiography Diagnostic Testing: Clinical Impression(s) from Imaging Studies Brain CT 12/16/21 15:36 IMPRESSION: No acute intracranial hemorrhage or mass effect. Electronically Signed: Shaun Byrd MD ([place]) at 16:57 EST , Cervical Spine CT 12/16/21 15:36 IMPRESSION: No acute findings in the cervical spine. Electronically Signed: Shaun Byrd MD ([place]) at 16:59 EST , Chest/Abdomen/Pelvis CT 12/16/21 15:36 IMPRESSION: 1. Soft tissue induration of the right posterolateral flank adipose tissue likely representing contusion. 2. Nondisplaced right 10th and 11th posterior rib fractures. Electronically Signed: Shaun Byrd MD ([place]) at 17:04 EST , Discharge Plan Triage Chief Complaint: Fall ED Provider: Juan Alberto Nichole Dx/Rx/DC Orders Clinical Impression: Right rib fracture, Contusion of flank and back, Head injury Instructions: ED Soft Tissue Contusion, ED Rib Fracture, ED Head Injury (Adult) Prescriptions: No Action simvastatin 40 MG tablet 40 mg PO QHS RF: 0 metoprolol tartrate 50 MG tablet 50 mg PO BID RF: 0 cholecalciferol (vitamin D3) 5,000 UNIT capsule 5,000 unit PO DAILY RF: 0 acetaminophen 500 MG tablet 1,000 mg PO Q8H PRN PRN (Reason: Mild Pain (-01/04)) RF: 0 venlafaxine [Effexor XR] 75 mg Capsule,Extended Release 24hr 75 mg PO 1500 RF: 0 lithium carbonate 150 mg Capsule 150 mg PO BID RF: 0 trazodone 100 mg Tablet 100 mg PO QHS RF: 0 warfarin 4 mg Tablet 4 mg PO DAILY RF: 0 pantoprazole 40 mg tablet,delayed release (DR/EC) 40 mg PO DAILY Qty: 30 RF: 1 Primary Care Provider: Clara Suazo Referrals: Clara Suazo DO [Primary Care Provider] - 3-5 Days Disposition Disposition: Home, Self Care
[2021-12-16] MEDS: 0.9% Normal Saline 1,000 ML 999 ML IV (15:54)
[2021-12-16 15:59] LABS: Absolute Lymphocyte Count 1.26 X10^3/uL (0.83-4.51); Absolute Neutrophil Count 9.8 X10^3/uL (2.0-7.7); Basophil# 0.06 X10^3/uL; Basophil% 0.5 % (0-1); Eosinophil# 0.21 X10^3/uL; Eosinophils% 1.7 % (0-5); Hematocrit 45.2 % (37-47); Hemoglobin 14.3 g/dL (12.0-15.0); Lymphocyte # 1.26 X10^3/ul (0.83-4.51); Lymphocyte % 10.3 % (19-41); Mean Corp Hgb Conc 31.6 g/dL (32-36); Mean Corpuscular Hgb 29.7 pg (27.0-32.0); Mean Platelet Vol. 9.7 fl (6.2-12.0); Monocyte# 0.94 X10^3/uL; Monocyte% 7.7 % (0-10); NRBC Flagged by Analyzer 0 % (0-5); Neutrophil # 9.76 X10^3/uL (2.7-7.7); Neutrophil % 79.4 % (47-70); Platelet Count 229 K/mm3 (150-450); RBC Distribution Width CV 13.7 % (11.6-14.6); Red Blood Count 4.81 M/mm3 (4.2-5.4); White Blood Count 12.3 K/mm3 (4.4-11.0)
[2021-12-16] MEDS: Morphine 4 MG/ML Syringe IV (16:03)
[2021-12-16 16:13] LABS: Anion Gap 7 (5-15); BUN 41 mg/dL (7-18); BUN/Creat Ratio 44.9 RATIO (10-20); Calcium,Total 10.3 mg/dL (8.5-10.1); Chloride 106 mmol/L (98-107); Creatinine, Serum 0.91 mg/dL (0.55-1.02); EST Glomerular Filtration Rate 62 mL/min (>60); Est Glom Filt Rate - Afr Amer 75 mL/min (>60); Estimated Creatinine Clearance 31.88 ml/min; Glucose 115 mg/dL (74-106); Sodium Level 141 mmol/L (136-145)
[2021-12-16 16:16] LABS: Partial Thromboplast Time 33.1 Seconds (24.1-36.2); Prothrombin Time (Protime)PT. 22.2 SECONDS (11.7-14.9)
[2021-12-16 16:56] LABS: Bacteria 0 SEEN /hpf (None Seen); Mucous, Urine 0 SEEN /hpf (<or=2+); Squamous Epithelial Cells - UA 0 SEEN /hpf (5-10); White Blood Cells 0 SEEN /hpf (0-5)
[2021-12-16 17:00] LABS: Color, Urine Yellow (Yellow); Glucose, Dipstick Normal (Normal); Ketone-Dipstick Negative (Negative); Leukocyte Esterase-Dipstick Negative /ul (Negative); Nitrite-Dipstick Negative (Negative); Occult Blood-Urine 250 /ul (Negative); Protein-Dipstick Negative (Negative); Urine Bilirubin Dipstick Negative (Negative); Urine Clarity Clear (Clear); Urine Urobilinogen Normal (Normal); Urine pH 6.5 (5.0 - 8.0)
[2021-12-16 17:09] LABS: Red Blood Cells-Urine 5-10 SEEN /hpf (0-5)
[2021-12-16 17:15] VITALS: BP 189/71; PULSE 73; RESP 13; O2SAT 100
== END 2021-12-16 17:53 | disposition home or self-care (01) ==
PROVIDERS: Emergency Provider Emergency Medicine; PCP Internal Medicine; Visit Provider Emergency Medicine
DX: S22.49XA Multiple fractures of ribs, unspecified side, initial encounter for closed fracture (principal); M06.9 Rheumatoid arthritis, unspecified; F31.9 Bipolar disorder, unspecified; E11.40 Type 2 diabetes mellitus with diabetic neuropathy, unspecified; S09.90XA Unspecified injury of head, initial encounter; S30.1XXA Contusion of abdominal wall, initial encounter; W18.30XA Fall on same level, unspecified, initial encounter; I10 Essential (primary) hypertension; I25.10 Atherosclerotic heart disease of native coronary artery without angina pectoris; E78.00 Pure hypercholesterolemia, unspecified; Z87.442 Personal history of urinary calculi; Z86.711 Personal history of pulmonary embolism; Z79.899 Other long term (current) drug therapy; Z79.01 Long term (current) use of anticoagulants
CPT/HCPCS: 70450; 71260; 72125; 74177; 80048; 81001; 85025; 85610; 85730; 93005; 96361; 96374; 99285; J7030; Q9967; A4216

== ENCOUNTER 2022-01-18 13:25 | Outpatient (CLI) | payer MEDICARE, SELFPAY ==
--- NOTE | 2022-01-18 13:30 | RAD_ITS ---
STUDY: LEFT KNEE X-RAY SERIES OF 1336 HOURS ON 01/18/2022 REASON FOR EXAM: 86-year-old female with left knee pain. TECHNIQUE: 2 view(s) of the knee. COMPARISON: None. FINDINGS: No fractures or dislocations. Narrowing of the medial joint space. No other significant arthritic or degenerative changes. Normal patella. Prominent calcification of the distal superficial femoral and popliteal arteries. Normal mineralization. RAD/Knee 1 or 2 Views IMPRESSION: 1. No fractures or dislocations. 2. Narrowing of the medial joint space. 3. No other significant arthritic or degenerative changes. 4. Prominent calcification of the distal superficial femoral and popliteal arteries. 5. Normal mineralization, unusual for 86-year-old female. Electronically Signed: Bubba Maddox MD at 22:31 EDT ,
== END 2022-01-18 23:59 | disposition home or self-care (01) ==
LOC: MTRAD 13:26
PROVIDERS: PCP Internal Medicine; Referring Provider Internal Medicine; Visit Provider Internal Medicine
DX: M25.562 Pain in left knee (principal)
CPT/HCPCS: 73560

== ENCOUNTER 2022-01-22 12:21 | Day surgery (SDC) | payer MEDICARE, SELFPAY ==
[2022-01-22] VITALS (9 sets, daily range): BP systolic 125–168; BP diastolic 45–67; PULSE 56–62; RESP 16; TEMP 36.1–37; O2SAT 94–100; BMI 26.6
[2022-01-22 12:56] LABS: Prothrombin Time Fingerstick 12.7 SEC (11.7-14.9)
[2022-01-22] MEDS: Lactated Ringers 1,000 ML 15 ML IV (13:13)
--- NOTE | 2022-01-22 14:01 | PCM.DC ---
Discharge Instructions Diet Discharge Diet: No restrictions Activity Discharge Activity: Return to Normal Activity Dressing / Incision Call your doctor if you observe: Fever of 101 or Higher, Inability to urinate and Inability to have a bowel movement Follow Up Care Please Follow Up With: Magy Kellogg MD When: call office to be seen later this week for post void residual Test Results: Test results from this visit will be discussed in further detail at your follow-up appointment, if applicable. Discharge Plan Admission Attending Provider: Magy Kellogg Primary Care Provider: Clara Suazo Discharge Orders/Prescriptions Prescriptions: New hydrocodone-acetaminophen [hydrocodone-acetaminophen] 1 TABLET tablet 1 tab PO Q8H PRN (Reason: Pain) 3 Days Qty: 9 RF: 0 cephalexin [cephalexin] 500 MG capsule 500 mg PO Q12 3 Days Qty: 6 RF: 0 Continued simvastatin 40 MG tablet 40 mg PO QHS RF: 0 metoprolol tartrate 50 MG tablet 50 mg PO BID RF: 0 cholecalciferol (vitamin D3) 5,000 UNIT capsule 5,000 unit PO DAILY RF: 0 acetaminophen 500 MG tablet 1,000 mg PO Q8H PRN PRN (Reason: Mild Pain (-01/04)) RF: 0 venlafaxine [Effexor XR] 75 mg Capsule,Extended Release 24hr 75 mg PO 1500 RF: 0 lithium carbonate 150 mg Capsule 150 mg PO BID RF: 0 trazodone 100 mg Tablet 100 mg PO QHS RF: 0 warfarin 4 mg Tablet 4 mg PO DAILY RF: 0 tramadol 50 mg Tablet 50 mg PO Q8H PRN (Reason: Pain) RF: 0 Referrals / Follow Up: Clara Suazo DO [Primary Care Provider] - Disposition Disposition (needs filled in before D/C Order can be placed): Home, Self Care
[2022-01-22] MEDS: Cefazolin 2 GM in 0.9% Normal Saline 100 ML IV (14:10)
--- NOTE | 2022-01-22 14:10 | PCM.OPRPT ---
Problems Associated Problem List Diagnoses (1) Overactive bladder: (2) Urinary incontinence, urge: Report of Operation Date of Procedure: 01/22/22 Pre-Operative Diagnosis: Overactive bladder, urge incontinence Post-Operative Diagnosis: Same Surgery/Procedure Performed:: Cystoscopy, Botox 200 unit injection Surgeon: Magy Kellogg Type of Anesthesia: MAC Special Medications: Botox 200 units Description of Procedure: The patient is an 86-year-old female with refractory overactive bladder and urge incontinence. She has failed Botox 100 unit injection and now presents for 200 units. Informed consent was obtained. Patient was taken to the operating room placed on the operating table. Anesthesia monitored the head, neck, airway, IV access and vital signs throughout the case. Once anesthesia was apparently administered, the patient was placed into dorsal lithotomy position was prepped and draped in usual sterile fashion. The cystoscope was inserted through the urethra under direct visualization into the urinary bladder. The bladder mucosa was visualized in its entirety and found to be without evidence of mass, erythema or other abnormality. In total 200 units were injected in 1 cc increments containing 10 units of Botox. A total of 20 injections were made. The injection sites were selected based on the detrusor hypertrophy and trabeculation that was visible. The patient tolerated the procedure well. Her bladder was emptied, the cystoscope was removed and the case was terminated. She was awakened and taken to the recovery room in good condition. There were no complications during this procedure. Complications None Admit VTE Documentation VTE Present on Admission: Yes VTE Mechan Device Prophylaxis: SCD's VTE Pharm Prophylaxis ordered?: Yes
== END 2022-01-22 23:59 | disposition home or self-care (01) ==
LOC: SDC 12:24 → AC 12:25
PROVIDERS: PCP Internal Medicine; Referring Provider Urology; Visit Provider Urology
PROC: 3E0K8GC Introduction of Other Therapeutic Substance into Genitourinary Tract, Via Natural or Artificial Opening Endoscopic (ICD-10-PCS; CPT 52287; principal; 2022-01-22 14:00)
DX: N32.81 Overactive bladder (principal); M06.9 Rheumatoid arthritis, unspecified; J44.9 Chronic obstructive pulmonary disease, unspecified; F31.9 Bipolar disorder, unspecified; I73.9 Peripheral vascular disease, unspecified; Z86.718 Personal history of other venous thrombosis and embolism; E55.9 Vitamin D deficiency, unspecified; E78.1 Pure hyperglyceridemia; E78.5 Hyperlipidemia, unspecified; E83.52 Hypercalcemia; H91.90 Unspecified hearing loss, unspecified ear; I10 Essential (primary) hypertension; K21.9 Gastro-esophageal reflux disease without esophagitis; K57.30 Diverticulosis of large intestine without perforation or abscess without bleeding; M19.90 Unspecified osteoarthritis, unspecified site; N39.41 Urge incontinence; Z78.0 Asymptomatic menopausal state; Z79.01 Long term (current) use of anticoagulants; Z79.899 Other long term (current) drug therapy; Z87.440 Personal history of urinary (tract) infections; E78.00 Pure hypercholesterolemia, unspecified; Z87.442 Personal history of urinary calculi; G62.9 Polyneuropathy, unspecified; I25.10 Atherosclerotic heart disease of native coronary artery without angina pectoris; Z86.711 Personal history of pulmonary embolism
CPT/HCPCS: 52287; 00910; 36416; 85610; 87426; C9803; J7120; J0585; J2405; J3490